=== PATIENT | male | born 1950 | race Caucasian/White ===

== ENCOUNTER 2016-09-17 11:55 | Inpatient (IN) | payer OTHER ==
[~2016-09-17] VITALS: Ht 182.9 cm; Wt 74.4 kg
[~2016-09-17 11:55] MED LIST: MULT-506 PO
[2016-09-17] MEDS ORDERED: SODIUM CHLORIDE 0.9% 1000ML 1,000 ML IV ONE ×2 (11:58→14:45)
[2016-09-17] MEDS ORDERED: FAMOTIDINE 20MG/102 ML D5W IV STA (12:08)
[2016-09-17] MEDS ORDERED: PANTOprazole INJ 40 MG in SYRINGE 0 ML IV ONE (12:15)
--- NOTE | 2016-09-17 12:21 | EMERGENCY ROOM VISIT NOTE ---
History Report prepared by Nazaninibpooja: Rodrick Soler Under the Supervision of: Dr. Leroy Hill D.O. First contact with patient: 11:58 Stated Complaint: AMS History of Present Illness The patient is a 66 year old male who presents to the Emergency Room with complaints of acute altered mental status. As per EMS, the patient was found by an unknown bystander lying on a mattress on the floor. The patient was covered in feces. The patient's BSG was 155. His pressure was in the 80-90s systolically initially, and he was given 600 CCs of fluid en route. The patient' s oxygen saturation was in the 70s. EMS notes that the patient was in the hospital last week. A complete history is limited secondary to altered mental status. Source of History: EMS Position: other (mentation) Quality: other (AMS) Timing: other (acute) Review of Systems ROS is limited secondary to altered mental status. Past Medical & Surgical Medical Problems: (1) Colon cancer (2) Sepsis Family History Patient reports no known family medical history. Social History Smoking Status: Never Smoker Marital Status: Occupation Status: unemployed Current/Historical Medications Unable to Obtain Active Prescriptions or Reported Meds Allergies Coded Allergies: Atorvastatin (Unverified Allergy, Unknown, gets dizzy sees spots, 01/18/14) Physical Exam Vital Signs Date Time Temp Pulse Resp B/P Pulse Ox O2 Delivery O2 Flow Rate FiO2 09/17/16 14:43 114/81 09/17/16 14:30 72 17 106/82 100 Nasal Cannula 6.0 09/17/16 14:28 106/82 09/17/16 14:25 77 100 09/17/16 14:15 36.4 76 126/89 09/17/16 14:13 126/89 09/17/16 13:58 126/87 09/17/16 13:55 78 100 09/17/16 13:48 75 20 117/81 100 Non-Rebreather 09/17/16 13:43 117/81 09/17/16 13:28 121/81 09/17/16 13:25 79 81 09/17/16 13:17 110/82 09/17/16 13:04 88 118/89 Non-Rebreather 10.0 09/17/16 13:02 118/89 09/17/16 12:55 82 09/17/16 12:34 35.8 24 129/75 Non-Rebreather 09/17/16 12:30 99 Non-Rebreather 15.0 09/17/16 12:25 153 Physical Exam GENERAL: Patient is listless, responds to verbal stimuli with groaning, covered in dried black stool, smells feculent in nature. EYES: The conjunctivae are clear. The pupils are round and reactive. EARS, NOSE, MOUTH AND THROAT: The nose is without any evidence of any deformity. Mucous membranes are dry tongue is midline NECK: The neck is nontender and supple. RESPIRATORY: Shallow respirations were noted, scattered rhonchi in all lung pizarro, no retractions were noted. CARDIOVASCULAR: Heart tones barely audible, no definite murmurs noted to auscultation. GASTROINTESTINAL: Abdomen was rigid and diffusely tender, no abdominal distention noted, rectal exam revealed black stool that was strongly heme positive. MUSCULOSKELETAL/EXTREMITIES: There is diffuse ecchymosis noted to all four extremities, erythema and drainage noted from the lateral aspect of the right elbow. SKIN: Skin is cool to touch and dry, no edema appreciated. There are no petechiae, pallor or cyanosis noted. NEUROLOGIC: Patient responds with groans, does not answer questions appropriately, follows commands intermittently with moving all extremities. Medical Decision & Procedures ER Provider Diagnostic Interpretation: Radiology results as stated below per my review and radiologist interpretation: CHEST ONE VIEW PORTABLE CLINICAL HISTORY: Sepsis. COMPARISON STUDY: Chest radiograph November 07, 2010. FINDINGS: Lung volumes are normal. No consolidation is identified. There is no evidence of pulmonary edema. Cardiac size is normal. Mediastinal contours are normal. IMPRESSION: No acute cardiopulmonary findings. Electronically signed by: Kendall Ruiz M.D. 09/17/2016 12:32 PM Dictated Date/Time: 09/17/2016 12:[address]AST CT DOSE: 1259.99 mGy.cm HISTORY: Trauma fall TECHNIQUE: Multiaxial CT images of the head were performed without the use of intravenous contrast. Comparison: 11/08/2010 Findings: The paranasal sinuses and mastoid air cells are clear. The calvarium and skull base are intact. The ventricles and sulci are within normal limits. There is no mass, hematoma, midline shift, or acute infarct. Impression: No acute intracranial abnormality. Age-related change Electronically signed by: Noel Abrams M.D. 09/17/2016 12:58 PM Dictated Date/Time: 09/17/2016 12:54 PM RIGHT ELBOW MIN 3 VIEWS ROUTINE CLINICAL HISTORY: Drainage of right elbow. COMPARISON: None FINDINGS: Alignment of the right elbow is anatomic. No fracture or joint effusion is identified. There is mild soft tissue swelling overlying the olecranon with minimal spurring of the olecranon. There is no evidence of osteomyelitis within visualized skeletal structures. IMPRESSION: 1. No acute fracture or joint effusion of the right elbow. 2. No radiographic evidence of osteomyelitis. 3. Mild soft tissue swelling overlying the olecranon. Electronically signed by: Kendall Ruiz M.D. 09/17/2016 12:30 PM Dictated Date/Time: 09/17/2016 12:[address] OF THE CERVICAL SPINE CLINICAL HISTORY: Neck pain status post trauma COMPARISON STUDY: No previous studies for comparison. CT DOSE: TECHNIQUE: CT scan of the cervical spine was performed from the skull base to the thoracic inlet. Images are reviewed in the axial, sagittal, and coronal planes. IV contrast was not administered for this examination. FINDINGS: The visualized portions of the lung apices reveal no evidence of pneumothorax. The prevertebral soft tissues are normal. There is a tiny avulsion fracture arising from the anterior inferior C4 endplate.. There are mild multilevel degenerative changes IMPRESSION: 1. 3 mm chip/avulsion fracture arising from the anterior inferior C4 endplate. 2. No additional fractures identified. No evidence of traumatic subluxation. Electronically signed by: Erasmo Urbina M.D. 09/17/2016 1:02 PM Dictated Date/Time: 09/17/2016 12:[address] OF THE ABDOMEN AND PELVIS WITHOUT CONTRAST CLINICAL HISTORY: Fall. GI bleed. COMPARISON STUDY: Right upper quadrant ultrasound November 06, 2010. TECHNIQUE: Axial images of the abdomen and pelvis were obtained without IV contrast. Images were reviewed in the axial, sagittal, and coronal planes. FINDINGS: Visualized portions of the lower chest demonstrate dilatation of the ascending aorta which measures 4.2 cm. This is partially imaged on this examination. There acute appearing mildly displaced fractures of the anterior left eighth, ninth and 10th ribs as well as a nondisplaced fracture of the posterior left 11th rib. No pneumothorax is shown within visual portions of the chest. No pneumatosis, free air or portal venous gas is present. There is minimal infiltration along the superior aspect of the pancreatic body. There is no biliary or pancreatic ductal dilatation. Evaluation of the abdomen and pelvis is suboptimal on this unenhanced exam. There is central hypodensity within the liver. This is suboptimally assessed on this unenhanced exam but measures less than water attenuation in several locations and this likely reflects focal fat. There is fatty infiltration within the left hepatic lobe. There is no perihepatic fluid. There is no perisplenic fluid. No hemoperitoneum or pneumoperitoneum is present. Unenhanced images of the kidneys and adrenal glands are unremarkable. Moderate diffuse colonic wall thickening is noted. There is evidence for sigmoid resection. No lymphadenopathy is present. No suspicious skeletal lesions are identified. A Jaimes catheter is present within the bladder. There is no hydronephrosis. IMPRESSION: 1. Acute appearing fractures of the left eighth through 11th ribs. No pneumothorax within visualized portions of the chest. 2. Central branching hypodensity within the right hepatic lobe. This is suboptimally assessed on this unenhanced exam but favors fatty infiltration. A liver laceration could appear similar although is considered less likely. Close clinical monitoring is recommended. No perihepatic fluid. Discussed with Dr. Hill at time of dictation. 3. Moderate diffuse colonic wall thickening. This represents a nonspecific colitis. 4. Mild peripancreatic infiltration. Acute pancreatitis is considered somewhat unlikely but this could be correlated with biochemical assays. 5. Mild dilatation of visualized portions of the ascending aorta. 6. Suboptimal evaluation of the abdomen and pelvis given the lack of IV and oral contrast. Electronically signed by: Kendall Ruiz M.D. 09/17/2016 1:13 PM Dictated Date/Time: 09/17/2016 12:56 PM Laboratory Results Test 09/17/16 12:25 09/17/16 12:26 09/17/16 12:30 09/17/16 13:27 Nucleated RBC Absolute Count (auto) 0.03 K/uL (0-0) Nucleated Red Blood Cells % 0.2 % Erythrocyte Sedimentation Rate 64 mm/hr (0-14) Prothrombin Time 11.7 SECONDS (9.0-12.0) Prothromb Time International Ratio 1.1 (0.9-1.1) Activated Partial Thromboplast Time 25.0 SECONDS (21.0-31.0) Partial Thromboplastin Ratio 1.0 Venous Blood pH 7.38 (7.36-7.41) Venous Blood Partial Pressure CO2 30 mmHg (38.0-50.0) Venous Blood Partial Pressure O2 34 mmHg Venous Blood HCO3 17 mmol/L Venous Blood Oxygen Saturation < 60.0 % Venous Blood Base Excess -6.7 mmol/L C-Reactive Protein 25.20 mg/dl (0-0.29) Pro-B-Type Natriuretic Peptide 3301 pg/ml (0-900) Lipase 241 U/L (73-393) Procalcitonin 11.23 ng/mL (0-0.5) Bedside Lactic Acid Venous 4.38 mmol/L (0.90-1.70) Bedside Hemoglobin 12.6 g/dl (14.0-18.0) Bedside Hematocrit 37 % (42-52) Bedside Sodium 134 mEq/L (135-144) Bedside Potassium 3.8 mEq/L (3.3-5.0) Bedside Chloride 96 mEq/L (101-112) Bedside Total CO2 17 mEq/l (24-31) Bedside Blood Urea Nitrogen > 140 mg/dl (7-18) Bedside Creatinine 7.0 mg/dl (0.6-1.3) Bedside Glucose (other) 155 mg/dl (70-99) Bedside Ionized Calcium (Liliam) 0.93 mmol/l (1.12-1.32) Urine Color DK YELLOW Urine Appearance CLOUDY (CLEAR) Urine pH 5.0 (4.5-7.5) Urine Specific [place] 1.015 (1.000-1.030) Urine Protein TRACE (NEG) Urine Glucose (UA) NEG (NEG) Urine Ketones NEG (NEG) Urine Occult Blood TRACE (NEG) Urine Nitrite POS (NEG) Urine Bilirubin NEG (NEG) Urine Urobilinogen NEG (NEG) Urine Leukocyte Esterase TRACE (NEG) Urine WBC (Auto) 1-5 /hpf (0-5) Urine RBC (Auto) 10-30 /hpf (0-4) Urine Hyaline Casts (Auto) >30 /lpf (0-5) Urine Epithelial Cells (Auto) >30 /lpf (0-5) Urine Bacteria (Auto) NEG (NEG) Urine Renal Epithelial Cells /lpf (0-5) Urine Pathogenic Casts /lpf (0) Urine Mucus PRESENT (NONE PRSENT) Laboratory results per my review. Medications Administered Medications (Trade) Dose Ordered Sig/Miranda Route Start Time Stop Time Status Last Admin Dose Admin Sodium Chloride 1,000 ml @ 999 mls/hr Q1H1M ONCE IV 09/17/16 11:58 09/17/16 12:58 DC 09/17/16 13:02 999 MLS/HR Pantoprazole Sodium/Syringe (Protonix Inj/ Syringe) 10 ml @ 5 mls/min NOW ONCE IV 09/17/16 12:15 09/17/16 12:16 DC 09/17/16 13:13 5 MLS/MIN Famotidine 20 mg 20 mg ONE STAT IV 09/17/16 12:08 09/17/16 12:10 DC 09/17/16 13:03 20 MG Sodium Chloride (Nss 1000ml) 1,000 ml @ 999 mls/hr Q1H1M STAT IV 09/17/16 12:35 09/17/16 13:35 DC 09/17/16 14:00 999 MLS/HR Piperacillin Sod/ Tazobactam Sod (Zosyn Iv) 4.5 gm NOW STAT IV 09/17/16 12:35 09/17/16 12:37 DC 09/17/16 13:04 4.5 GM Levofloxacin 750 mg 750 mg NOW STAT IV 09/17/16 12:35 09/17/16 12:37 DC 09/17/16 13:03 750 MG Sodium Chloride 1,000 ml @ 200 mls/hr Q5H IV 09/17/16 14:45 10/17/16 14:44 09/18/16 05:34 200 MLS/HR Sodium Chloride (Nss 1000ml) 1,000 ml @ 999 mls/hr Q1H1M ONCE IV 09/17/16 14:45 09/17/16 15:45 DC 09/17/16 15:23 999 MLS/HR Procedure Central Venous Catheter Indication: sepsis. Catheter type: triple lumen. Location: femoral, right side. Verbal consent was obtained after the risks and benefits were explained, including but not limited to pneumothorax, hemothorax, vessel injury, bleeding, scarring, infection, pain, and bone/joint/nerve damage. At this time, the risks of the procedure are less than the risks of NOT performing the procedure. A time out was taken and the correct patient and site identified. The patient was placed in the supine position and the skin was prepped in the standard fashion with chlorhexidine and full sterile drapes applied. The proper landmarks were identified with ultrasound, anesthetized with 1% lidocaine without epinephrine, and the needle was inserted through the skin in the standard fashion. The needle was carefully advanced into blood vessel lumen with use of landmarks. The guidewire was placed uneventfully. The vessel is dilated and the catheter was placed. It was sutured into position. There was good blood return from all ports. The patient tolerated the procedure well and there were no complications. Post procedure x-ray was normal. ED Course 1158: NSS 1000 ml @ 999 mls/hr. 1200: The patient was evaluated in room A1. A complete history and physical examination were performed. 1208: Famotidine 20 mg IV. 1215: Protonix 40 mg / syringe 10 ml @ 5 mls/hr. 1235: Levaquin / D5w 750 mg IV, Zosyn 4.5 gm IV, NSS 1000 ml @ 999 mls/hr. 1315: Central line placed. Please see procedural note above. 1327: [facility] The patient will be evaluated. 1350: The patient is now answering some questions. Medical Decision Prior records/ancillary studies reviewed and summarized above. Nursing notes reviewed. Additional history obtained from EMS. Differential diagnosis: Etiologies such as metabolic, infection, hypo/hyperglycemia, electrolyte abnormalities, cardiac sources, intracerebral event, toxicologic, neurologic, as well as others were entertained. The patient is a 66-year-old male who presented to the emergency department by ambulance for evaluation of altered mental status. History was very limited on this patient. Additional history was obtained from the prehospital personnel. The patient was found in a living facility and I'm unsure if this is his primary residence but he was on the floor. It was unclear if the patient fell. Initially the patient could not give much history and when he started to give history he was somewhat confused. The patient was found covered in stool. He was hypothermic. The stool was heme positive. He had diffuse tenderness over his abdomen but this was difficult to assess. The patient was treated with IV fluids and IV antibiotics in the emergency department. He was felt to be suffering from GI bleeding as well as sepsis. CAT scan did reveal signs of enterocolitis and I'm unsure if this is the source of the patient's infection at this time. The patient was reevaluated multiple times. His central line was placed in his right groin. I discussed the patient's laboratory and radiographic studies with the on-call [facility] hospitalist group. They've agreed to evaluate the patient in the emergency department for further management and disposition. The patient's condition continued to improve while he was in the emergency department. He was found have a draining area over his right elbow. This could be from the fall with a subsequent infection or could represent a pressure necrosis area. This area was cultured. This area was dressed using a wound dressing. Consults Time Called: 1320 Consulting Physician: Dr. Otto [facility] Hospitalist. Returned Call: 1327 1327: [facility] The patient will be evaluated. Impression Primary Impression: Altered mental status Additional Impressions: C4 cervical fracture Multiple fractures of ribs, left side, initial encounter for closed fracture Cellulitis of right elbow GI bleeding Hypothermia ARF (acute renal failure) Elevated troponin Sepsis Critical Care I have personally spent greater than 60 minutes of critical care time in the direct management of this patient. This includes bedside care, interpretation of diagnostic studies, and testing, discussion with consultants, patient, and family members, and other required patient management activities. This 60 minutes is in excess of all separately billable procedures. Scribe Attestation The scribe's documentation has been prepared under my direction and personally reviewed by me in its entirety. I confirm that the note above accurately reflects all work, treatment, procedures, and medical decision making performed by me. Departure Information Dispostion Being Evaluated By Hospitalist Prescriptions Unable to Obtain Active Prescriptions or Reported Meds Referrals Kelsea Duke C.R.NVandanaPVandana (PCP) Problem Qualifiers Primary Impression: Altered mental status Altered mental status type: somnolence Qualified Codes: R40.0 - Somnolence Additional Impressions: C4 cervical fracture Encounter type: initial encounter Fracture type: closed Fracture morphology : unspecified fracture morphology Fracture alignment: nondisplaced Qualified Codes: S12.301A - Unspecified nondisplaced fracture of fourth cervical vertebra, initial encounter for closed fracture GI bleeding GI bleed type/associated pathology: melena Qualified Codes: K92.1 - Melena Hypothermia Encounter type: initial encounter Qualified Codes: T68.XXXA - Hypothermia, initial encounter ARF (acute renal failure) Acute renal failure type: unspecified Qualified Codes: N17.9 - Acute kidney failure, unspecified Sepsis Sepsis type: sepsis due to unspecified organism Qualified Codes: A41.9 - Sepsis, unspecified organism
--- NOTE | 2016-09-17 12:32 | DIAGNOSTIC IMAGING REPORT ---
RIGHT ELBOW MIN 3 VIEWS ROUTINE CLINICAL HISTORY: Drainage of right elbow. COMPARISON: None FINDINGS: Alignment of the right elbow is anatomic. No fracture or joint effusion is identified. There is mild soft tissue swelling overlying the olecranon with minimal spurring of the olecranon. There is no evidence of osteomyelitis within visualized skeletal structures. IMPRESSION: 1. No acute fracture or joint effusion of the right elbow. 2. No radiographic evidence of osteomyelitis. 3. Mild soft tissue swelling overlying the olecranon. Electronically signed by: Kendall Ruiz M.D. 09/17/2016 12:30 PM Dictated Date/Time: 09/17/2016 12:30 PM
--- NOTE | 2016-09-17 12:33 | DIAGNOSTIC IMAGING REPORT ---
CHEST ONE VIEW PORTABLE CLINICAL HISTORY: Sepsis. COMPARISON STUDY: Chest radiograph November 07, 2010. FINDINGS: Lung volumes are normal. No consolidation is identified. There is no evidence of pulmonary edema. Cardiac size is normal. Mediastinal contours are normal. IMPRESSION: No acute cardiopulmonary findings. Electronically signed by: Kendall Ruiz M.D. 09/17/2016 12:32 PM Dictated Date/Time: 09/17/2016 12:31 PM
[2016-09-17] MEDS ORDERED: LEVAQUIN 750MG / 150ML D5W IV STA (12:35)
[2016-09-17] MEDS ORDERED: PIPERACILLIN/TAZOBACTAM 4.5 GM/100ML D5W IV STA (12:35)
[2016-09-17] MEDS ORDERED: SODIUM CHLORIDE 0.9% 1000ML 1,000 ML IV STA (12:35)
[2016-09-17 12:45] LABS: VEN BLD GAS O2 SATURATION < 60.0 %; VEN BLOOD GAS BASE EXCESS -6.7 mmol/L; VENOUS BLOOD GAS PCO2 30 mmHg (38.0-50.0); VENOUS BLOOD GAS PO2 34 mmHg
[2016-09-17 12:46] LABS: ISTAT CARBON DIOXIDE 17 mEq/l (24-31); ISTAT CHLORIDE 96 mEq/L (101-112); ISTAT HEMATOCRIT 37 % (42-52); ISTAT HEMOGLOBIN 12.6 g/dl (14.0-18.0); ISTAT IONIZED CALCIUM 0.93 mmol/l (1.12-1.32); ISTAT SODIUM 134 mEq/L (135-144)
[2016-09-17 12:50] LABS: MEAN PLATELET VOLUME 11.2 fL (7.4-10.4); PLATELET COUNT 287 K/uL (130-400)
--- NOTE | 2016-09-17 13:00 | DIAGNOSTIC IMAGING REPORT ---
HEAD CT NONCONTRAST CT DOSE: 1259.99 mGy.cm HISTORY: Trauma fall TECHNIQUE: Multiaxial CT images of the head were performed without the use of intravenous contrast. Comparison: 11/08/2010 Findings: The paranasal sinuses and mastoid air cells are clear. The calvarium and skull base are intact. The ventricles and sulci are within normal limits. There is no mass, hematoma, midline shift, or acute infarct. Impression: No acute intracranial abnormality. Age-related change Electronically signed by: Noel Abrams M.D. 09/17/2016 12:58 PM Dictated Date/Time: 09/17/2016 12:54 PM
[2016-09-17 13:02] LABS: INR 1.1 (0.9-1.1); PROTHROMBIN TIME (PATIENT) 11.7 SECONDS (9.0-12.0)
--- NOTE | 2016-09-17 13:03 | DIAGNOSTIC IMAGING REPORT ---
CT OF THE CERVICAL SPINE CLINICAL HISTORY: Neck pain status post trauma COMPARISON STUDY: No previous studies for comparison. CT DOSE: TECHNIQUE: CT scan of the cervical spine was performed from the skull base to the thoracic inlet. Images are reviewed in the axial, sagittal, and coronal planes. IV contrast was not administered for this examination. FINDINGS: The visualized portions of the lung apices reveal no evidence of pneumothorax. The prevertebral soft tissues are normal. There is a tiny avulsion fracture arising from the anterior inferior C4 endplate.. There are mild multilevel degenerative changes IMPRESSION: 1. 3 mm chip/avulsion fracture arising from the anterior inferior C4 endplate. 2. No additional fractures identified. No evidence of traumatic subluxation. Electronically signed by: Erasmo Urbina M.D. 09/17/2016 1:02 PM Dictated Date/Time: 09/17/2016 12:54 PM
--- NOTE | 2016-09-17 13:15 | DIAGNOSTIC IMAGING REPORT ---
CT OF THE ABDOMEN AND PELVIS WITHOUT CONTRAST CLINICAL HISTORY: Fall. GI bleed. COMPARISON STUDY: Right upper quadrant ultrasound November 06, 2010. TECHNIQUE: Axial images of the abdomen and pelvis were obtained without IV contrast. Images were reviewed in the axial, sagittal, and coronal planes. FINDINGS: Visualized portions of the lower chest demonstrate dilatation of the ascending aorta which measures 4.2 cm. This is partially imaged on this examination. There acute appearing mildly displaced fractures of the anterior left eighth, ninth and 10th ribs as well as a nondisplaced fracture of the posterior left 11th rib. No pneumothorax is shown within visual portions of the chest. No pneumatosis, free air or portal venous gas is present. There is minimal infiltration along the superior aspect of the pancreatic body. There is no biliary or pancreatic ductal dilatation. Evaluation of the abdomen and pelvis is suboptimal on this unenhanced exam. There is central hypodensity within the liver. This is suboptimally assessed on this unenhanced exam but measures less than water attenuation in several locations and this likely reflects focal fat. There is fatty infiltration within the left hepatic lobe. There is no perihepatic fluid. There is no perisplenic fluid. No hemoperitoneum or pneumoperitoneum is present. Unenhanced images of the kidneys and adrenal glands are unremarkable. Moderate diffuse colonic wall thickening is noted. There is evidence for sigmoid resection. No lymphadenopathy is present. No suspicious skeletal lesions are identified. A Jaimes catheter is present within the bladder. There is no hydronephrosis. IMPRESSION: 1. Acute appearing fractures of the left eighth through 11th ribs. No pneumothorax within visualized portions of the chest. 2. Central branching hypodensity within the right hepatic lobe. This is suboptimally assessed on this unenhanced exam but favors fatty infiltration. A liver laceration could appear similar although is considered less likely. Close clinical monitoring is recommended. No perihepatic fluid. Discussed with Dr. Hill at time of dictation. 3. Moderate diffuse colonic wall thickening. This represents a nonspecific colitis. 4. Mild peripancreatic infiltration. Acute pancreatitis is considered somewhat unlikely but this could be correlated with biochemical assays. 5. Mild dilatation of visualized portions of the ascending aorta. 6. Suboptimal evaluation of the abdomen and pelvis given the lack of IV and oral contrast. Electronically signed by: Kendall Ruiz M.D. 09/17/2016 1:13 PM Dictated Date/Time: 09/17/2016 12:56 PM
[2016-09-17 13:26] LABS: ALB/GLOB RATIO 0.4 (0.9-2); BUN/CREATININE RATIO 27.3 (10-20); C-REACTIVE PROTEIN 25.2 mg/dl (0-0.29); CALCIUM 8.6 mg/dl (8.5-10.1); CKMB/CK RATIO 6.3 (0-3.0); CREATININE 7.4 mg/dl (0.60-1.40); MAGNESIUM 2.5 mg/dl (1.8-2.4); PHOSPHORUS 7.6 mg/dl (2.5-4.9); POTASSIUM 3.8 mmol/L (3.5-5.1)
[2016-09-17 13:28] LABS: COMPLETE YES; DOHLE BODIES 3+; HEMATOCRIT 33.6 % (42-52); LYMPH ABS # 0.29 K/uL (1.2-3.4); LYMPHOCYTE % 1.7 %; MEAN CELL VOLUME 91.1 fL (80-100); MEAN CORPUSCULAR HEMOGLOBIN 32.8 pg (25-34); NEUTROPHILS % 88.7 %; RED BLOOD COUNT 3.69 M/uL (4.7-6.1); TOXIC GRANULATION 2+; WHITE BLOOD COUNT 16.96 K/uL (4.8-10.8)
--- NOTE | 2016-09-17 14:36 | History and Physical ---
History & Physical Date & Time of Service: Sep 17, 2016 at 14:06 Chief Complaint: AMS Primary Care Physician: Kelsea Duke C.R.N.P. History of Present Illness Source: patient, hospital records, other (ED physician) This patient is a 66-year-old male that was brought to the emergency Department via ALS and was reportedly found down for an unknown amount of time in his apartment covered in black stool. The history is limited as the patient is still somewhat altered. Upon arrival in the emergency department, the patient was hypothermic with a temperature of 35.8. He was also reportedly completely unresponsive upon arrival. The patient is now able to at least only that he has been very weak over the last several days. He has had copious watery diarrhea over the last several weeks. The patient denies any abdominal pain. He also denies any nausea. No recent cough area he does constantly feels somewhat short of breath. This is not new. He denies any chest pain. He does report "falling all the time." He does not remember anything about today except waking up in the emergency department. Pertinent labs are notable for a creatinine of 7.4. Potassium is stable at 3.8. BUN is 202. Mild elevation in troponin at 0.587. Checks x-ray did not show any acute findings, however a CT of the abdomen and pelvis is performed. This revealed 3 left rib fractures that appear acute. No signs of pneumothorax. Nonspecific colitis was also noted on the noncontrast CT. There was a questionable small liver laceration that is thought to be more consistent with infiltrative fatty changes. Again, the patient denies any abdominal pain. Past Medical/Surgical History Medical Problems: (1) Colon cancer Status: Chronic Family History Patient reports no known family medical history. No known illnesses of mother and father Social History Smoking Status: Never Smoker Alcohol Use: patient denies, however reportedly the patient does have a history of alcoholism Marital Status: Housing status: lives alone Occupational Status: unemployed Immunizations History of Influenza Vaccine: No History of Tetanus Vaccine?: No Tetanus Immunization Date: Nov 06, 2010 History of Pneumococcal: No History of Hepatitis B Vaccine: No Allergies Coded Allergies: Atorvastatin (Unverified Allergy, Unknown, gets dizzy sees spots, 01/18/14) Home Medications Unable to Obtain Active Prescriptions or Reported Meds Review of Systems 10 system review performed and negative unless noted in HPI or below Physical Exam Vital Signs Date Time Temp Pulse Resp B/P Pulse Ox O2 Delivery O2 Flow Rate FiO2 09/17/16 13:48 75 20 117/81 100 Non-Rebreather 09/17/16 13:04 88 118/89 Non-Rebreather 10.0 09/17/16 12:34 35.8 24 129/75 Non-Rebreather 09/17/16 12:30 99 Non-Rebreather 15.0 GENERAL: 66-year-old male. Appears older than stated age. In mild distress. SKIN: Bruises noted on the left hip and lower extremities bilaterally HEAD: Normocephalic atraumatic. EYES: Pupils equal round and reactive to light and accommodation. Conjunctivae without injection, sclerae without icterus. Extraocular movements intact. MOUTH: Mucous membranes dry. NECK: . No JVD. HEART: Regular rate and rhythm without murmurs gallops or rubs. LUNGS: Clear to auscultation bilaterally without wheezes, rales or rhonchi. No accessory muscle use. THORAX: No point tenderness noted. ABDOMEN: Bowel sounds hypoactive. No point tenderness noted. No organomegaly appreciated. MUSCULOSKELETAL: Muscle wasting noted. No edema noted in the lower extremities bilaterally. Strength is weak throughout, however equal bilaterally. NEURO: Patient was alert and oriented to person place and time. No focal motor deficits noted. Diagnostics Laboratory Results 09/17/16 12:25 Red Blood Count 3.69, Mean Corpuscular Volume 91.1, Mean Corpuscular Hemoglobin 32.8, Mean Corpuscular Hemoglobin Concent 36.0, Mean Platelet Volume 11.2 Test 09/17/16 12:25 09/17/16 12:26 09/17/16 12:30 09/17/16 13:27 White Blood Count 16.96 K/uL (4.8-10.8) Red Blood Count 3.69 M/uL (4.7-6.1) Hemoglobin 12.1 g/dL (14.0-18.0) Hematocrit 33.6 % (42-52) Mean Corpuscular Volume 91.1 fL (80-100) Mean Corpuscular Hemoglobin 32.8 pg (25-34) Mean Corpuscular Hemoglobin Concent 36.0 g/dl (32-36) Platelet Count 287 K/uL (130-400) Mean Platelet Volume 11.2 fL (7.4-10.4) RDW Standard Deviation 46.5 fL (36.4-46.3) RDW Coefficient of Variation 14.1 % (11.5-14.5) Nucleated RBC Absolute Count (auto) 0.03 K/uL (0-0) Neutrophils % (Manual) 88.7 % Lymphocytes % (Manual) 1.7 % Monocytes % (Manual) 9.6 % Nucleated Red Blood Cells % 0.2 % Neutrophils # (Manual) 15.04 K/uL (1.4-6.5) Total Absolute Neutrophils 15.04 K/uL (1.4-6.5) Lymphocytes # (Manual) 0.29 K/uL (1.2-3.4) Total Absolute Lymphocytes 0.29 K/uL (1.2-3.4) Monocytes # (Manual) 1.63 K/uL (0.11-0.59) Toxic Granulation 2+ Dohle Bodies 3+ Erythrocyte Sedimentation Rate 64 mm/hr (0-14) Prothrombin Time 11.7 SECONDS (9.0-12.0) Prothromb Time International Ratio 1.1 (0.9-1.1) Activated Partial Thromboplast Time 25.0 SECONDS (21.0-31.0) Partial Thromboplastin Ratio 1.0 Venous Blood pH 7.38 (7.36-7.41) Venous Blood Partial Pressure CO2 30 mmHg (38.0-50.0) Venous Blood Partial Pressure O2 34 mmHg Venous Blood HCO3 17 mmol/L Venous Blood Oxygen Saturation < 60.0 % Venous Blood Base Excess -6.7 mmol/L Est Creatinine Clear Calc Drug Dose 9.8 ml/min Estimated GFR () 8.1 Estimated GFR (Non- 7.0 BUN/Creatinine Ratio 27.3 (10-20) Calcium Level 8.6 mg/dl (8.5-10.1) Phosphorus Level 7.6 mg/dl (2.5-4.9) Magnesium Level 2.5 mg/dl (1.8-2.4) Total Bilirubin 0.8 mg/dl (0.2-1) Aspartate Amino Transf (AST/SGOT) 34 U/L (15-37) Alanine Aminotransferase (ALT/SGPT) 19 U/L (12-78) Alkaline Phosphatase 95 U/L (45-117) Total Creatine Kinase 107 U/L (39-308) Creatine Kinase MB 6.7 ng/ml (0.5-3.6) Creatine Kinase MB Ratio 6.3 (0-3.0) Troponin I 0.587 ng/ml (0-0.045) C-Reactive Protein 25.20 mg/dl (0-0.29) Pro-B-Type Natriuretic Peptide 3301 pg/ml (0-900) Total Protein 6.6 gm/dl (6.4-8.2) Albumin 2.0 gm/dl (3.4-5.0) Globulin 4.6 gm/dl (2.5-4.0) Albumin/Globulin Ratio 0.4 (0.9-2) Lipase 241 U/L (73-393) Procalcitonin 11.23 ng/mL (0-0.5) Bedside Lactic Acid Venous 4.38 mmol/L (0.90-1.70) Bedside Hemoglobin 12.6 g/dl (14.0-18.0) Bedside Hematocrit 37 % (42-52) Bedside Sodium 134 mEq/L (135-144) Bedside Potassium 3.8 mEq/L (3.3-5.0) Bedside Chloride 96 mEq/L (101-112) Bedside Total CO2 17 mEq/l (24-31) Anion Gap 25.0 mmol/L (16-25) Bedside Blood Urea Nitrogen > 140 mg/dl (7-18) Bedside Creatinine 7.0 mg/dl (0.6-1.3) Bedside Glucose (other) 155 mg/dl (70-99) Bedside Ionized Calcium (Liliam) 0.93 mmol/l (1.12-1.32) Results Past 24 Hours Test 09/17/16 12:25 09/17/16 12:26 09/17/16 12:30 09/17/16 13:27 Range/Units White Blood Count 16.96 4.8-10.8 K/uL Red Blood Count 3.69 4.7-6.1 M/uL Hemoglobin 12.1 14.0-18.0 g/dL Hematocrit 33.6 42-52 % Mean Corpuscular Volume 91.1 80-100 fL Mean Corpuscular Hemoglobin 32.8 25-34 pg Mean Corpuscular Hemoglobin Concent 36.0 32-36 g/dl Platelet Count 287 130-400 K/uL Mean Platelet Volume 11.2 7.4-10.4 fL RDW Standard Deviation 46.5 36.4-46.3 fL RDW Coefficient of Variation 14.1 11.5-14.5 % Nucleated RBC Absolute Count (auto) 0.03 0-0 K/uL Neutrophils % (Manual) 88.7 % Lymphocytes % (Manual) 1.7 % Monocytes % (Manual) 9.6 % Nucleated Red Blood Cells % 0.2 % Neutrophils # (Manual) 15.04 1.4-6.5 K/uL Total Absolute Neutrophils 15.04 1.4-6.5 K/uL Lymphocytes # (Manual) 0.29 1.2-3.4 K/uL Total Absolute Lymphocytes 0.29 1.2-3.4 K/uL Monocytes # (Manual) 1.63 0.11-0.59 K/uL Toxic Granulation 2+ Dohle Bodies 3+ Erythrocyte Sedimentation Rate 64 0-14 mm/hr Prothrombin Time 11.7 9.0-12.0 SECONDS Prothromb Time International Ratio 1.1 0.9-1.1 Activated Partial Thromboplast Time 25.0 21.0-31.0 SECONDS Partial Thromboplastin Ratio 1.0 Venous Blood pH 7.38 7.36-7.41 Venous Blood Partial Pressure CO2 30 38.0-50.0 mmHg Venous Blood Partial Pressure O2 34 mmHg Venous Blood HCO3 17 mmol/L Venous Blood Oxygen Saturation < 60.0 % Venous Blood Base Excess -6.7 mmol/L Sodium Level 137 136-145 mmol/L Potassium Level 3.8 3.5-5.1 mmol/L Chloride Level 96 98-107 mmol/L Carbon Dioxide Level 16 21-32 mmol/L Anion Gap 25.0 25.0 16-25 mmol/L Blood Urea Nitrogen 202 7-18 mg/dl Creatinine 7.40 0.60-1.40 mg/dl Est Creatinine Clear Calc Drug Dose 9.8 ml/min Estimated GFR () 8.1 Estimated GFR (Non- 7.0 BUN/Creatinine Ratio 27.3 10-20 Random Glucose 146 70-99 mg/dl Calcium Level 8.6 8.5-10.1 mg/dl Phosphorus Level 7.6 2.5-4.9 mg/dl Magnesium Level 2.5 1.8-2.4 mg/dl Total Bilirubin 0.8 0.2-1 mg/dl Aspartate Amino Transf (AST/SGOT) 34 15-37 U/L Alanine Aminotransferase (ALT/SGPT) 19 12-78 U/L Alkaline Phosphatase 95 45-117 U/L Total Creatine Kinase 107 39-308 U/L Creatine Kinase MB 6.7 0.5-3.6 ng/ml Creatine Kinase MB Ratio 6.3 0-3.0 Troponin I 0.587 0-0.045 ng/ml C-Reactive Protein 25.20 0-0.29 mg/dl Pro-B-Type Natriuretic Peptide 3301 0-900 pg/ml Total Protein 6.6 6.4-8.2 gm/dl Albumin 2.0 3.4-5.0 gm/dl Globulin 4.6 2.5-4.0 gm/dl Albumin/Globulin Ratio 0.4 0.9-2 Lipase 241 73-393 U/L Bedside Lactic Acid Venous 4.38 0.90-1.70 mmol/L Bedside Hemoglobin 12.6 14.0-18.0 g/dl Bedside Hematocrit 37 42-52 % Bedside Sodium 134 135-144 mEq/L Bedside Potassium 3.8 3.3-5.0 mEq/L Bedside Chloride 96 101-112 mEq/L Bedside Total CO2 17 24-31 mEq/l Bedside Blood Urea Nitrogen > 140 7-18 mg/dl Bedside Creatinine 7.0 0.6-1.3 mg/dl Bedside Glucose (other) 155 70-99 mg/dl Bedside Ionized Calcium (Liliam) 0.93 1.12-1.32 mmol/l Microbiology Results 09/17/16 Blood Culture, Received Pending 09/17/16 Blood Culture, Received Pending 09/17/16 Gram Stain, Received Pending 09/17/16 Wound Culture, Received Pending Diagnostic Radiology Patient: MONALISA REID Address1: [address] [facility] Rec: [id number] Address2: Acct ID: [id number] [facility] Zip: [place] [address] Date: 1950 Sex: M Room/Bed: Ref Phy: Kelsea Duke C.RVandanaNVandanaP. SC: CCHRISTIANNE Att Phy: Report #: [id number] Sharon Phy: Kelsea Duke C.R.NVandanaPVandana Test: CSWO Admit Phy: Program Administrator: FABIENNE Interpreting Phy: Erasmo Urbina M.D. Diagnosis: AMS Ordering Phy: Leroy Hill D.O. Service Date: 09/17/16 Admit Date: 09/17/16 MNE: PWRSCRIBE CONF: DICTATED BY: Erasmo Urbina M.D.]] CC: Leroy Hill, Kelsea Edwards C.R.NChacorta Endcc: [~ rep ct add3]] CT OF THE CERVICAL SPINE CLINICAL HISTORY: Neck pain status post trauma COMPARISON STUDY: No previous studies for comparison. CT DOSE: TECHNIQUE: CT scan of the cervical spine was performed from the skull base to the thoracic inlet. Images are reviewed in the axial, sagittal, and coronal planes. IV contrast was not administered for this examination. FINDINGS: The visualized portions of the lung apices reveal no evidence of pneumothorax. The prevertebral soft tissues are normal. There is a tiny avulsion fracture arising from the anterior inferior C4 endplate.. There are mild multilevel degenerative changes IMPRESSION: 1. 3 mm chip/avulsion fracture arising from the anterior inferior C4 endplate. 2. No additional fractures identified. No evidence of traumatic subluxation. Electronically signed by: Erasmo Urbina M.D. 09/17/2016 1:02 PM Dictated Date/Time: 09/17/2016 12:54 PM The status of this report is Signed. Draft = Not yet reviewed or approved by Radiologist. Signed = Reviewed and approved by Radiologist. <AttendingPhy></AttendingPhy> <FamilyPhy>Kelsea Duke C.R.N.PVandana</FamilyPhy> < PrimaryPhy>Kelsea Duke C.R.N.PVandana</PrimaryPhy> <UnitNumber>[id number]</ UnitNumber> <VisitNumber>[id number]</VisitNum Patient Name: MONALISA REID Unit Number: [id number] Dictated: 09/17/16 1256 Transcribed: 09/17/16 1256 JA Printed Date/Time: [~ rep prt dt]/[~ rep prt tm] [~ rep ct labl] - [~ rep ct ivnm] [facility] [place] [address] Dictated: 09/17/16 1256 Transcribed: 09/17/16 1256 JA Printed Date/Time: [~ rep prt dt]/[~ rep prt tm] [~ rep ct labl] - [~ rep ct ivnm] Patient: MONALISA REID Address1: [address] [facility] Rec: [id number] Address2: Acct ID: [id number] [facility] Zip: [place] [address] Date: 1950 Sex: M Room/Bed: Ref Phy: Kelsea Duke C.R.N.P. SC: CCHRISTIANNE Att Phy: Report #: [id number] Sharon Phy: Kelsea Duke C.R.N.PVandana Test: APWO Admit Phy: Program Administrator: FABIENNE Interpreting Phy: Kendall Ruiz MD Diagnosis: AMS Ordering Phy: Leroy Hill D.O. Service Date: 09/17/16 Admit Date: 09/17/16 MNE: PWRSCRIBE CONF: DICTATED BY: Kendall Ruiz MD]] CC: Leroy Hill, Kelsea Edwards C.R.NVandanaPVandana Endcc: [~ rep ct add3]] CT OF THE ABDOMEN AND PELVIS WITHOUT CONTRAST CLINICAL HISTORY: Fall. GI bleed. COMPARISON STUDY: Right upper quadrant ultrasound November 06, 2010. TECHNIQUE: Axial images of the abdomen and pelvis were obtained without IV contrast. Images were reviewed in the axial, sagittal, and coronal planes. FINDINGS: Visualized portions of the lower chest demonstrate dilatation of the ascending aorta which measures 4.2 cm. This is partially imaged on this examination. There acute appearing mildly displaced fractures of the anterior left eighth, ninth and 10th ribs as well as a nondisplaced fracture of the posterior left 11th rib. No pneumothorax is shown within visual portions of the chest. No pneumatosis, free air or portal venous gas is present. There is minimal infiltration along the superior aspect of the pancreatic body. There is no biliary or pancreatic ductal dilatation. Evaluation of the abdomen and pelvis is suboptimal on this unenhanced exam. There is central hypodensity within the liver. This is suboptimally assessed on this unenhanced exam but measures less than water attenuation in several locations and this likely reflects focal fat. There is fatty infiltration within the left hepatic lobe. There is no perihepatic fluid. There is no perisplenic fluid. No hemoperitoneum or pneumoperitoneum is present. Unenhanced images of the kidneys and adrenal glands are unremarkable. Moderate diffuse colonic wall thickening is noted. There is evidence for sigmoid resection. No lymphadenopathy is present. No suspicious skeletal lesions are identified. A Jaimes catheter is present within the bladder. There is no hydronephrosis. IMPRESSION: 1. Acute appearing fractures of the left eighth through 11th ribs. No pneumothorax within visualized portions of the chest. 2. Central branching hypodensity within the right hepatic lobe. This is suboptimally assessed on this unenhanced exam but favors fatty infiltration. A liver laceration could appear similar although is considered less likely. Close clinical monitoring is recommended. No perihepatic fluid. Discussed with Dr. Hill at time of dictation. 3. Moderate diffuse colonic wall thickening. This represents a nonspecific colitis. 4. Mild peripancreatic infiltration. Acute pancreatitis is considered somewhat unlikely but this could be correlated with biochemical assays. 5. Mild dilatation of visualized portions of the ascending aorta. 6. Suboptimal evaluation of the abdomen and pelvis given the lack of IV and oral contrast. Electronically signed by: Kendall Ruiz M.D. 09/17/2016 1:13 PM Dictated Date/Time: 09/17/2016 12:56 PM The status of this report is Signed. Draft = Not yet reviewed or approved by Radiologist. Signed = Reviewed and approved by Radiologist. <AttendingPhy></AttendingPhy> <FamilyPhy>Kelsea Duke C.RVandanaN.P.</FamilyPhy> < PrimaryPhy>Kelsea Duke C.R.N.P.</PrimaryPhy> <UnitNumber>[id number]</ UnitNumber> <VisitNumber>[id number]</VisitNumber> <PatientName>MONALISA REID</PatientName> <DateOfBirth>1950</DateOfBirth> <Location>C.ED</ Location> <ServiceDate>09/17/16</ServiceDate> <MNE>ESINDI</MNE> <OrderingPhy> Leroy Hill D.O.</OrderingPhy> <OrderingPhyMNE>f rep ord dr thomas</ OrderingPhyMNE> <DictatingPhyMNE>f rep dict dr thomas</DictatingPhyMNE> <CCListMNE> f rep ct mne</CCListMNE> <AdmittingPhyMNE>f pt admit dr thomas</AdmittingPhyMNE> < AttendingPhyMNE>f pt attend dr thomas</AttendingPhyMNE> <ConsultingPhyMNE>f pt consult dr thomas</ConsultingPhyMNE> <FamilyPhyMNE>f pt fam dr thomas</FamilyPhyMNE> <OtherPhyMNE>f pt other dr thomas</OtherPhyMNE> < PrimaryPhyMNE>f pt prim care dr thomas</PrimaryPhyMNE> <ReferringPhyMNE>f pt referring dr thomas</ReferringPhyMNE> Patient: MONALISA REID Address1: [address] [facility] Rec: [id number] [facility] [id number] Zip: [place] [address] Date: 1950 Sex: M Room/Bed: Ref Phy: Kelsea Duke,C.R.N.P. SC: C.ED Att Phy: Report #: [id number] Sharon Phy: Kelsea Duke,C.R.N.P. Test: HWO Admit Phy: Program Administrator: FABIENNE Interpreting Phy: Noel Abrams M.D. Diagnosis: AMS Ordering Phy: Leroy Hill D.O. Service Date: 09/17/16 Admit Date: 09/17/16 MNE: PWRSCRIBE CONF: DICTATED BY: Noel Abrams M.D.]] CC: Leroy Hill, Kelsea Edwards,C.R.N.PVandana Endcc: [~ rep ct add3]] HEAD CT NONCONTRAST CT DOSE: 1259.99 mGy.cm HISTORY: Trauma fall TECHNIQUE: Multiaxial CT images of the head were performed without the use of intravenous contrast. Comparison: 11/08/2010 Findings: The paranasal sinuses and mastoid air cells are clear. The calvarium and skull base are intact. The ventricles and sulci are within normal limits. There is no mass, hematoma, midline shift, or acute infarct. Impression: No acute intracranial abnormality. Age-related change Electronically signed by: Noel Abrams M.D. 09/17/2016 12:58 PM Dictated Date/Time: 09/17/2016 12:54 PM The status of this report is Signed. Draft = Not yet reviewed or approved by Radiologist. Patient Name: MONALISA REID Unit Number: [id number] Dictated: 09/17/161230 Transcribed: 09/17/161230 JA Printed Date/Time: [~ rep prt dt]/[~ rep prt tm] [~ rep ct labl] - [~ rep ct ivnm] [facility] [place] [address] Dictated: 09/17/161230 Transcribed: 09/17/161230 JA Printed Date/Time: [~ rep prt dt]/[~ rep prt tm] [~ rep ct labl] - [~ rep ct ivnm] Patient: MONALISA REID Address1: [address] [facility] Rec: [id number] Address2: Acct ID: [id number] [facility] Zip: [place] [address] Date: 1950 Sex: M Room/Bed: Ref Phy: Kelsea Duke,C.R.N.P. SC: C.ED Att Phy: Report #: [id number] Sharon Phy: Kelsea DukeC.R.N.P. Test: CXR1P Admit Phy: Program Administrator: BELINDA Interpreting Phy: Kendall Ruiz MD Diagnosis: AMS Ordering Phy: Leroy Hill D.O. Service Date: 09/17/16 Admit Date: 09/17/16 MNE: PWRSCRIBE CONF: DICTATED BY: Kendall Ruiz MD]] CC: Leroy Hill, Kelsea Edwards C.R.NElizabeth. Endcc: [~ rep ct add3]] CHEST ONE VIEW PORTABLE CLINICAL HISTORY: Sepsis. COMPARISON STUDY: Chest radiograph November 07, 2010. FINDINGS: Lung volumes are normal. No consolidation is identified. There is no evidence of pulmonary edema. Cardiac size is normal. Mediastinal contours are normal. IMPRESSION: No acute cardiopulmonary findings. Electronically signed by: Kendall Ruiz M.D. 09/17/2016 12:32 PM Dictated Date/Time: 09/17/2016 12:31 PM The status of this report is Signed. Draft = Not yet reviewed or approved by Radiologist. Signed = Reviewed and approved by Radiologist. <AttendingPhy></AttendingPhy> <FamilyPhy>Kelsea Duke C.RVandanaNVandanaPVandana</FamilyPhy> < PrimaryPhy>Kelsea Duke C.R.NVandanaPVandana</PrimaryPhy> <UnitNumber>[id number]</ UnitNumber> <VisitNumber>[id number]</VisitNumber> <PatientName>MONALISA REID</PatientName> <DateOfBirth>1950</DateOfBirth> <Location>C.ED</ Location> <ServiceDate>09/17/16</ServiceDate> <MNE>ESINDI</MNE> <OrderingPhy> Leroy Hill D.O.</OrderingPhy> <OrderingPhyMNE>f rep ord dr thomas</ OrderingPhyMNE> <DictatingPhyMNE>f rep dict dr thomas</DictatingPhyMNE> <CCListMNE> f rep ct mne</CCListMNE> <AdmittingPhyMNE>f pt admit dr thomas</AdmittingPhyMNE> < AttendingPhyMNE>f pt attend dr thomas</AttendingPhyMNE> <ConsultingPhyMNE>f pt consult dr thomas</ConsultingPhyMNE> <FamilyPhyMNE>f pt fam dr thomas</FamilyPhyMNE> <OtherPhyMNE>f pt other dr thomas</OtherPhyMNE> < PrimaryPhyMNE>f pt prim care dr thomas</PrimaryPhyMNE> <ReferringPhyMNE>f pt referring dr thomas</ReferringPhyMNE> EKG Normal sinus rhythm 76 bpm T-wave flattening noted in the lateral leads Significant artifact noted Impression Assessment and Plan 66-year-old male brought to emergency department by ALS today unresponsive and covered in black stool. Nonspecific colitis per CT. Rib fractures noted on the left. Acute renal failure the creatinine of 7.4. Hypothermic. Sepsis likely secondary to GI source Sepsis, metabolic encephalopathy-with the diarrhea. Likely GI related -Admit to ICU -Continue Zosyn renally dosed -additional 1 liter bolus NS now-then 150 cc/hr -diaz culture -check C diff stool cx -repeat lactic acid in 4 hrs GI bleed-H&H stable -recheck H&H in 8 hrs -sounds like lower GI bleed but will keep protonix 40 mg IV daily on board Acute renal dlqtcgk-frhrwreexuxzk-sexvul probably hypotensive - IV hydration as noted above -Repeat PRP in 4 hours -Consult nephrology elevated trop-likely secondary to renal fx -trend enzymes ? liver lac vs fatty liver-no pain or TTP on exam-probably fatty liver secondary to alcoholism -serial abd exams C4 endplate fx-appears stable -consult spine Rib fx-8-11 on the LEFT. No pneumo -incentive spirometry -may eventually need narcs for pain control but not complaining of pain now DVT prophylaxis -hold off on chemical means d/t trauma -TEDS, SCDs CODE STATUS -LEVEL I FULL CODE i personally examined pt and verified all barlow points w A [facility] PAC feeling better now but still weak and shivering. diarrhea - but ~2-4 times a day for months. gradual weakness worsening for months - relates it's probably been months since he was really able to walk around apartment - mostly has been crawling. notes with hindsight he wishes he'd have sought help sooner - doesn' t even know really how he got here. no current abdominal pain no cp no sob vitals noted, fatigued and shivering, no respiratory distress, lungs cta b/l, abdomen soft nd nt, no cyanosis a/p sepsis picture - unclear if GI sepsis vs sepsis from other source vs all just demargination/metabolic derangement - for now empiric abx, cultures, follow closely ARF - more than likely from progressive dehydration/diarrhea/poor PO intake vs less likely from sepsis picture - concern on ?chronicity given that his sx started per him ~march - maybe making this more of a permanent ARF than something reversible - but aggressive fluids for now, follow lytes closely, renal consult. DVT proph - follow CBC into AM - if no signs of bleeding then start SQ heparin otherwise as above Level of Care Critical Care Resuscitation Status FULL RESUSCITATION VTE Prophylaxis VTE Risk Assessment Done? Y/N: Yes Risk Level: Low Given or contraindicated: T.E.D. Stockings, SCD's, Contraindicated Note Total Time: Critical Care > 74 minutes
[2016-09-17] MEDS ORDERED: ONDANSETRON INJ 2 MG/ML 2 ML VIAL IV PRN (14:45)
[2016-09-17] MEDS ORDERED: ACETAMINOPHEN 325 MG TAB PO PRN (14:45)
[2016-09-17 14:47] LABS: URINE APPEARANCE CLOUDY (CLEAR); URINE COLOR DK YELLOW; URINE EPITHELIAL CELL AUTO >30 /lpf (0-5); URINE NITRITE POS (NEG); URINE SPECIFIC GRAVITY 1.015 (1.000-1.030); UROBILINOGEN NEG (NEG); ZZURINE CULT IF INDIC CATH NO
[2016-09-17 14:57] LABS: MANUAL MICROSCOPIC REQUIRED? NO; REVIEW REQ? YES; URINE BILIRUBIN NEG (NEG)
[2016-09-17 15:11] LABS: URINE MUCUS PRESENT (NONE PRSENT)
[2016-09-17] MEDS ORDERED: PIPERACILL/TAZOBAC CONSULT ACTIVE PRN (15:15)
[2016-09-17 16:24] VITALS: BP 116/81; PULSE 89; TEMP 36.5; Ht 182.9 cm; Wt 74.4 kg
[2016-09-17 17:22] LABS: BUN/CREATININE RATIO 31.5 (10-20); POTASSIUM 3.3 mmol/L (3.5-5.1)
[2016-09-17] MEDS: SODIUM CHLORIDE 0.9% 1000ML 1,000 ML IV SCH ×2 (17:24→23:27)
[2016-09-17 18:52] LABS: HEMATOCRIT 30.2 % (42-52)
[2016-09-17] MEDS ORDERED: INFLUENZA ADMINISTRATION CHARGE ONE (19:30)
[2016-09-17] MEDS ORDERED: INFLUENZA VIRUS QUAD VACCINE 0.5 ML SYR IM. ONE (19:30)
[2016-09-17] MEDS ORDERED: PNEUMOCOCCAL POLYSACCHARIDES 25 MCG/0.5 ML VIAL/SYR IM. ONE (19:30)
[2016-09-17] MEDS ORDERED: PNEUMOCOCCAL ADMINISTRATION CHARGE ONE (19:30)
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
[2016-09-17 20:13] VITALS: BP 108/66; PULSE 96; TEMP 36.5; O2SAT 99
[2016-09-17] MEDS ORDERED: NOREPINEPHRINE BIT INJ 8 MG in DEXTROSE 5% 500ML 500 ML IV PRN (20:15)
[2016-09-17] MEDS: POTASSIUM CHLR 20 MEQ / WTR 20 MEQ in PREMIXED WATER 100 ML IV SCH ×2 (20:25→22:08)
[2016-09-17 20:58] VITALS: BP 105/72; PULSE 78; O2SAT 100
[2016-09-17] MEDS: PANTOprazole INJ 40 MG in SYRINGE 0 ML IV SCH (21:27)
[2016-09-17] MEDS: THIAMINE HCL INJ 500 MG in SODIUM CHLORIDE 0.9% 50ML 50 ML IV SCH (21:27)
[2016-09-17 21:59] VITALS: BP 97/66; PULSE 82; O2SAT 95
[2016-09-17] MEDS: PIPERACILL/TAZOBAC IV 4.5 GM in DEXTROSE 5% 100ML 100 ML IV SCH (22:08)
[2016-09-17 22:43] LABS: HEMATOCRIT 27.2 % (42-52)
[2016-09-17 22:59] VITALS: BP 100/69; PULSE 78; O2SAT 90
[2016-09-17 23:07] LABS: CKMB/CK RATIO 7.7 (0-3.0)
[2016-09-17 23:58] VITALS: BP 98/68; PULSE 80; TEMP 36.5; O2SAT 100
[2016-09-18] VITALS (14 sets, daily range): BP systolic 86–116; BP diastolic 64–76; PULSE 71–85; TEMP 36.4–36.9; O2SAT 89–100
[2016-09-18] MEDS: SODIUM CHLORIDE 0.9% 1000ML 1,000 ML IV SCH ×2 (05:34→08:27)
[2016-09-18] MEDS ORDERED: METRONIDAZOLE / NSS 500 MG in PREMIXED NSS 100 ML IV SCH (06:00)
[2016-09-18 06:02] LABS: MEAN CORPUSCULAR HGB CONC 35.4 g/dl (32-36); MEAN PLATELET VOLUME 10.2 fL (7.4-10.4); PLATELET COUNT 176 K/uL (130-400)
[2016-09-18 06:25] LABS: COMPLETE YES; DOHLE BODIES 1+; HEMATOCRIT 27.4 % (42-52); LYMPH ABS # 0.34 K/uL (1.2-3.4); LYMPHOCYTE % 3.5 %; MEAN CELL VOLUME 89.8 fL (80-100); MEAN CORPUSCULAR HEMOGLOBIN 31.8 pg (25-34); META ABS # 0.16 K/uL (0-0); METAMYELOCYTE % 1.7 %; NEUTROPHILS % 89.6 %; RED BLOOD COUNT 3.05 M/uL (4.7-6.1); TOXIC GRANULATION 1+; WHITE BLOOD COUNT 9.64 K/uL (4.8-10.8)
[2016-09-18 06:45] LABS: ALB/GLOB RATIO 0.4 (0.9-2); CALCIUM 7.3 mg/dl (8.5-10.1); CKMB/CK RATIO 8.4 (0-3.0); CREATININE 4.6 mg/dl (0.60-1.40); MAGNESIUM 1.9 mg/dl (1.8-2.4); PHOSPHORUS 3.1 mg/dl (2.5-4.9); POTASSIUM 3.3 mmol/L (3.5-5.1)
--- NOTE | 2016-09-18 08:10 | Progress Note ---
Subjective Date of Service: Sep 18, 2016. Subjective this pt is pleasantly confused, has no recollection of falling, denies alcohol use, has some pain from rib fractures, no pain from cervical spine fractures, denies recent chest pain to correlate with elevated Troponin Problem List Medical Problems: (1) Altered mental status Status: Acute (2) ARF (acute renal failure) Status: Acute (3) C4 cervical fracture Status: Acute (4) Cellulitis of right elbow Status: Acute (5) Elevated troponin Status: Acute (6) GI bleeding Status: Acute (7) Hypothermia Status: Acute (8) Multiple fractures of ribs, left side, initial encounter for closed fracture Status: Acute Review of Systems Constitutional: No chills, No fatigue, No fever, No weakness Respiratory: No cough, No dyspnea on exertion, No shortness of breath Cardiac: + chest pain, No edema Abdomen: No nausea, No pain Male : No dysuria, No urinary frequency Psychiatric: No anhedonism, No depression symptoms Objective Vital Signs Date Time Temp Pulse Resp B/P Pulse Ox O2 Delivery O2 Flow Rate FiO2 09/18/16 05:58 73 15 116/73 100 Room Air 09/18/16 05:03 74 17 112/66 89 Room Air 09/18/16 04:00 Room Air 09/18/16 03:58 36.5 75 20 113/76 99 Room Air 09/18/16 02:58 79 22 96/68 97 Room Air 09/18/16 01:58 78 20 100/71 98 Room Air 09/18/16 00:58 80 24 106/73 100 Room Air 09/18/16 00:00 Room Air 09/17/16 23:58 36.5 80 19 98/68 100 Room Air 09/17/16 22:59 78 22 100/69 90 Nasal Cannula 2.0 09/17/16 21:59 82 20 97/66 95 Nasal Cannula 2.0 09/17/16 20:58 78 13 105/72 100 Nasal Cannula 2.0 09/17/16 20:13 36.5 96 29 108/66 99 Nasal Cannula 2.0 09/17/16 20:00 Nasal Cannula 2.0 09/17/16 16:36 80 18 116/81 100 4.0 09/17/16 16:24 36.5 89 24 116/81 Nasal Cannula 4.0 09/17/16 16:13 129/78 09/17/16 16:06 124/81 09/17/16 16:03 80 100 09/17/16 15:58 115/81 09/17/16 15:43 131/88 09/17/16 15:33 80 100 09/17/16 15:28 123/87 09/17/16 15:25 78 100 Nasal Cannula 4.0 09/17/16 15:13 126/86 09/17/16 14:58 128/85 09/17/16 14:55 79 100 09/17/16 14:43 114/81 09/17/16 14:30 72 17 106/82 100 Nasal Cannula 6.0 09/17/16 14:28 106/82 09/17/16 14:25 77 100 09/17/16 14:15 36.4 76 126/89 09/17/16 14:13 126/89 09/17/16 13:58 126/87 09/17/16 13:55 78 100 09/17/16 13:48 75 20 117/81 100 Non-Rebreather 09/17/16 13:43 117/81 09/17/16 13:28 121/81 09/17/16 13:25 79 81 09/17/16 13:17 110/82 09/17/16 13:04 88 118/89 Non-Rebreather 10.0 09/17/16 13:02 118/89 09/17/16 12:55 82 09/17/16 12:34 35.8 24 129/75 Non-Rebreather 09/17/16 12:30 99 Non-Rebreather 15.0 09/17/16 12:25 153 Physical Exam General Appearance: + moderate distress, + thin Neck: supple Respiratory/Chest: + decreased breath sounds, + accessory muscle use Cardiovascular: regular rate, rhythm, no murmur Abdomen: normal bowel sounds, soft, + guarding, + tenderness Extremities: no pedal edema, no calf tenderness, + pertinent finding (knee and elbow abrasions) Neurologic/Psychiatric: alert, + disoriented Laboratory Results Last 24 Hours Test 09/17/16 12:25 09/17/16 12:26 09/17/16 12:30 09/17/16 13:27 White Blood Count 16.96 K/uL Red Blood Count 3.69 M/uL Hemoglobin 12.1 g/dL Hematocrit 33.6 % Mean Corpuscular Volume 91.1 fL Mean Corpuscular Hemoglobin 32.8 pg Mean Corpuscular Hemoglobin Concent 36.0 g/dl Platelet Count 287 K/uL Mean Platelet Volume 11.2 fL RDW Standard Deviation 46.5 fL RDW Coefficient of Variation 14.1 % Nucleated RBC Absolute Count (auto) 0.03 K/uL Neutrophils % (Manual) 88.7 % Lymphocytes % (Manual) 1.7 % Monocytes % (Manual) 9.6 % Nucleated Red Blood Cells % 0.2 % Neutrophils # (Manual) 15.04 K/uL Total Absolute Neutrophils 15.04 K/uL Lymphocytes # (Manual) 0.29 K/uL Total Absolute Lymphocytes 0.29 K/uL Monocytes # (Manual) 1.63 K/uL Toxic Granulation 2+ Dohle Bodies 3+ Erythrocyte Sedimentation Rate 64 mm/hr Prothrombin Time 11.7 SECONDS Prothromb Time International Ratio 1.1 Activated Partial Thromboplast Time 25.0 SECONDS Partial Thromboplastin Ratio 1.0 Venous Blood pH 7.38 Venous Blood Partial Pressure CO2 30 mmHg Venous Blood Partial Pressure O2 34 mmHg Venous Blood HCO3 17 mmol/L Venous Blood Oxygen Saturation < 60.0 % Venous Blood Base Excess -6.7 mmol/L Sodium Level 137 mmol/L Potassium Level 3.8 mmol/L Chloride Level 96 mmol/L Carbon Dioxide Level 16 mmol/L Anion Gap 25.0 mmol/L 25.0 mmol/L Blood Urea Nitrogen 202 mg/dl Creatinine 7.40 mg/dl Est Creatinine Clear Calc Drug Dose 9.8 ml/min Estimated GFR () 8.1 Estimated GFR (Non- 7.0 BUN/Creatinine Ratio 27.3 Random Glucose 146 mg/dl Calcium Level 8.6 mg/dl Phosphorus Level 7.6 mg/dl Magnesium Level 2.5 mg/dl Total Bilirubin 0.8 mg/dl Aspartate Amino Transf (AST/SGOT) 34 U/L Alanine Aminotransferase (ALT/SGPT) 19 U/L Alkaline Phosphatase 95 U/L Total Creatine Kinase 107 U/L Creatine Kinase MB 6.7 ng/ml Creatine Kinase MB Ratio 6.3 Troponin I 0.587 ng/ml C-Reactive Protein 25.20 mg/dl Pro-B-Type Natriuretic Peptide 3301 pg/ml Total Protein 6.6 gm/dl Albumin 2.0 gm/dl Globulin 4.6 gm/dl Albumin/Globulin Ratio 0.4 Lipase 241 U/L Procalcitonin 11.23 ng/mL Bedside Lactic Acid Venous 4.38 mmol/L Bedside Hemoglobin 12.6 g/dl Bedside Hematocrit 37 % Bedside Sodium 134 mEq/L Bedside Potassium 3.8 mEq/L Bedside Chloride 96 mEq/L Bedside Total CO2 17 mEq/l Bedside Blood Urea Nitrogen > 140 mg/dl Bedside Creatinine 7.0 mg/dl Bedside Glucose (other) 155 mg/dl Bedside Ionized Calcium (Liliam) 0.93 mmol/l Urine Color DK YELLOW Urine Appearance CLOUDY Urine pH 5.0 Urine Specific [place] 1.015 Urine Protein TRACE Urine Glucose (UA) NEG Urine Ketones NEG Urine Occult Blood TRACE Urine Nitrite POS Urine Bilirubin NEG Urine Urobilinogen NEG Urine Leukocyte Esterase TRACE Urine WBC (Auto) 1-5 /hpf Urine RBC (Auto) 10-30 /hpf Urine Hyaline Casts (Auto) >30 /lpf Urine Epithelial Cells (Auto) >30 /lpf Urine Bacteria (Auto) NEG Urine Renal Epithelial Cells /lpf Urine Pathogenic Casts /lpf Urine Mucus PRESENT Test 09/17/16 16:01 09/17/16 18:40 09/17/16 22:35 09/18/16 00:29 Sodium Level 140 mmol/L Potassium Level 3.3 mmol/L Chloride Level 105 mmol/L Carbon Dioxide Level 14 mmol/L Anion Gap 21.0 mmol/L Blood Urea Nitrogen 189 mg/dl Creatinine 6.00 mg/dl Est Creatinine Clear Calc Drug Dose 12.8 ml/min Estimated GFR () 10.4 Estimated GFR (Non- 9.0 BUN/Creatinine Ratio 31.5 Random Glucose 111 mg/dl Lactic Acid Level 1.9 mmol/L Calcium Level 7.0 mg/dl Magnesium Level 2.0 mg/dl Hemoglobin 10.7 g/dL 9.8 g/dL Hematocrit 30.2 % 27.2 % Iron Level 48 mcg/dl Total Iron Binding Capacity 154 mcg/dl Ferritin 779.0 ng/ml Vitamin B12 Level > 2000 pg/mL Folate 10.29 ng/mL Total Creatine Kinase 95 U/L Creatine Kinase MB 7.3 ng/ml Creatine Kinase MB Ratio 7.7 Troponin I 1.020 ng/ml Bedside Glucose 120 mg/dl Test 09/18/16 05:35 White Blood Count 9.64 K/uL Red Blood Count 3.05 M/uL Hemoglobin 9.7 g/dL Hematocrit 27.4 % Mean Corpuscular Volume 89.8 fL Mean Corpuscular Hemoglobin 31.8 pg Mean Corpuscular Hemoglobin Concent 35.4 g/dl Platelet Count 176 K/uL Mean Platelet Volume 10.2 fL RDW Standard Deviation 47.1 fL RDW Coefficient of Variation 14.2 % Neutrophils % (Manual) 89.6 % Lymphocytes % (Manual) 3.5 % Monocytes % (Manual) 5.2 % Metamyelocytes % 1.7 % Neutrophils # (Manual) 8.64 K/uL Total Absolute Neutrophils 8.64 K/uL Lymphocytes # (Manual) 0.34 K/uL Total Absolute Lymphocytes 0.34 K/uL Monocytes # (Manual) 0.50 K/uL Metamyelocytes # 0.16 K/uL Toxic Granulation 1+ Dohle Bodies 1+ Sodium Level 143 mmol/L Potassium Level 3.3 mmol/L Chloride Level 111 mmol/L Carbon Dioxide Level 17 mmol/L Anion Gap 15.0 mmol/L Blood Urea Nitrogen 152 mg/dl Creatinine 4.60 mg/dl Est Creatinine Clear Calc Drug Dose 16.7 ml/min Estimated GFR () 14.4 Estimated GFR (Non- 12.4 BUN/Creatinine Ratio 33.0 Random Glucose 105 mg/dl Calcium Level 7.3 mg/dl Phosphorus Level 3.1 mg/dl Magnesium Level 1.9 mg/dl Total Bilirubin 0.7 mg/dl Aspartate Amino Transf (AST/SGOT) 26 U/L Alanine Aminotransferase (ALT/SGPT) 12 U/L Alkaline Phosphatase 67 U/L Total Creatine Kinase 77 U/L Creatine Kinase MB 6.5 ng/ml Creatine Kinase MB Ratio 8.4 Troponin I 1.170 ng/ml Total Protein 5.2 gm/dl Albumin 1.6 gm/dl Globulin 3.6 gm/dl Albumin/Globulin Ratio 0.4 Assessment and Plan 66 M initially unresponsive and covered in black stool. Nonspecific colitis per CT. Rib fractures noted on the left. Acute renal failure the creatinine of 7.4. Hypothermic. Sepsis likely secondary to GI source Sepsis, metabolic encephalopathy Zosyn renally dosed volume resuscitated. os c diff colitis, on po vancomycin GI bleed-H&H stable protonix 40 mg IV daily on board Acute renal [id number], plus hypovolemic shock -Consult nephrology elevated trop multifactoral, poor perfusion with low blood pressure-likely secondary to renal fx liver lac vs fatty liver-no pain C4 endplate fx-appears stable-spine surgery feels it is stable, may use c collar for comfort Rib fx-8-11 on the LEFT. No pneumo DVT prevention is SCD - full code
[2016-09-18] MEDS: THIAMINE HCL INJ 500 MG in SODIUM CHLORIDE 0.9% 50ML 50 ML IV SCH ×3 (08:27→20:33)
[2016-09-18] MEDS: PANTOprazole INJ 40 MG in SYRINGE 0 ML IV SCH (08:27)
[2016-09-18] MEDS: POTASSIUM CHLR 10 MEQ / WTR 10 MEQ in PREMIXED WATER 100 ML IV SCH ×3 (08:35→10:31)
[2016-09-18] MEDS ORDERED: VANCOMYCIN HCL 125 MG/2.5ML SOLN PO SCH (09:00)
[2016-09-18] MEDS: RASPBERRY SYRUP 5 ML UDP PO SCH ×4 (09:24→20:35)
[2016-09-18] MEDS: VANCOMYCIN HCL 125 MG/2.5ML SOLN PO SCH ×4 (09:24→20:35)
[2016-09-18] MEDS: PIPERACILL/TAZOBAC IV 4.5 GM in DEXTROSE 5% 100ML 100 ML IV SCH (09:25)
[2016-09-18] MEDS ORDERED: PERFLUTREN LIPID MICROSPHERE (DEFINITY) IV ONE (10:09)
--- NOTE | 2016-09-18 10:20 | Critical Care Progress Note ---
Critical Care Progress Note Date of Service Sep 18, 2016. Attending Dr Tiffani Morales Mr Quiroz feels well this morning. He wishes to eat. Continuing to have diarrhea but is improving. Denies chest pain, abdominal pain or shortness of breath Objective VITAL SIGNS: were reviewed as below GENERAL: no acute distress SKIN: Warm dry, unkept HEAD: Normocephalic and atraumatic EYES: extraocular muscles intact, pupils equal OROPHARYNX: dry mouth, no erythema LUNGS: clear to auscultation, no accessory muscle use, no respiratory distress HEART: Regular rate and rhythm, quiet heart sounds 1+2, no appreciable murmurs ABDOMEN: Soft and nontender, bowel sounds normal BACK: no CVA tenderness EXTREMITIES: Warm and well perfused, no calf tenderness/swelling, no pedal edema NEUROLOGICALLY: Awake alert and oriented without focal deficit. No facial droop. Tremor no longer present at rest but he does have a postural/intention tremor present. Asterixis less present. Cerebellar testing shows mild horizontal nystagmus, dysdiadochokinesis and mild intention tremor. Speech is clear. Vision is grossly normal. MUSCULOSKELETAL: Good muscle tone. No evidence of trauma Assessment & Plan Mr Quiroz is a 66 year old male with history of colon ca s/p sigmoid resection without routine medical care. Assessment: 1. Altered mental status - improving. Multifactorial: sepsis, dehydration, uremia, possible Wernicke's 2. Acute renal failure 3. GI Bleed - Fecal occult positive, Hx colon ca. 4. Sepsis - suspect abdominal source vs bursitis/cellulitis 4. Right elbow infected bursitis 5. Multiple rib fractures 6. Short of breath on exertion 7. Elevated troponin 8. C4 cervical fracture Plan Neuro alert, CT nill acute, no focal neurology on exam pain - acetaminophen PRN Altered mental status - multifactorial metabolic encephalopathy as above. Nystagmus, poor memory and balance problems with alcohol Hx - possible Wernicke' s and will treat with IV thiamine 500mg TID for 3 days, then 250mg/day. Pulmonology: no acute issues Cardiovascular: Short of breath on exertion - BMP 3301, echocardiogram pending report, no pulmonary edema on CXR however Elevated troponin - no chest pain or shortness of breath at rest. Continue to trend until it starts dropping. Echo as above. No ASA Gastrointestinal: GI bleed - hemodynamically stable, trend H&H stable, GI consulted. Keep NPO pending GI consult and echo. Non specific colitis - stool culture, GI consulted Central hypodensity within liver ?focal fat - LFTs normal, given Hx of colon ca. outpatient follow up. /electrolytes Acute kidney injury - suspect prerenal given Hx of diarrhea. Cr coming down, switch to Half NSS 150 MLS/HR. No hydronephrosis on CT. Trend Cr Hypokalemia 3.3 - replace with KCl 10 meq x3 (ordered by Dr Trinidad) Hyperphosphatemia - resolved, secondary to APPLE, continue to monitor drop for refeeding syndrome. Heme/onc Elevated WBC consistent with sepsis Normocytic anemia - GI bleed, B12 high (unclear if he was getting supplement for this), Folate and Iron WNL Infectious Disease: Elevated WBC and procalcitonin - c.diff source, vancomycin QID, stop Zosyn (1/2 BC gram positive cocci likely contaminant) Olecranon bursitis - culture pending. Follow up stool, blood, urine and swab cultures. Miscellaneous: Outpatient records requested C4 teardrop fracture without retropulsion - in [facility], await ortho note Lines and Tubes: x3 peripheral IVs x2 Left upper limb, x1 right antecubital fossa Triple lumen right femoral line - placed 09/17/16 - plan to remove after GI consult and echocardiogram Jaimes catheter VTE/GI prophylaxis: - chemical contraindicated due to GI bleed. SCDs + TEDs - Pantoprazole 40 mg IV BID as above. Code: Full Disposition: - Medically stable to be transferred out of ICU, recommend telemetry given elevated troponin. PT/OT/discharge planning Attending Grain Sacker Resident Physician Supervision Note: I interviewed and examined the patient. Discussed with Dr. Carpenter and agree with findings and plan as documented in the note. Any exceptions or clarifications are listed here: His care was discussed in detail on multidisciplinary rounds and I have personally interviewed and examined him. He is more appropriate from a mental status standpoint compared to yesterday. Overall looks much better. Labs, data , meds reviewed. Less diarrhea and making urine. H/H seems to have stabilized as of this morning and now on PPI infusion. Trop trending down and echo a difficult study but LV function preserved. BC now with GPC in 2 sets. Initially on rounds, it was one set and Zosyn was discontinued. I will resume it again and have paged Dr. Trinidad to discuss. Repeat BC ordered this morning. Decrease 1/2NS to 125ml per hour and continue treatment for C. dif. Await decision from GI regarding EGD. He is stable for transfer to the floor. Documented By: Graciela Nixon Data Medications: Current Inpatient Medications Medications (Trade) Dose Ordered Sig/Miranda Route Start Time Stop Time Status Last Admin Dose Admin Acetaminophen (Tylenol Tab) 650 mg Q4H PRN PO 09/17/16 14:45 10/17/16 14:44 Ondansetron HCl (Zofran Inj) 4 mg Q6H PRN IV 09/17/16 14:45 10/17/16 14:44 Piperacillin Sod/ Tazobactam Sod 1 ea 1 ea UD PRN N/A 09/17/16 15:15 10/17/16 15:14 Pantoprazole Sodium 40 mg/ Syringe 10 ml @ 5 mls/min BID IV 09/17/16 21:00 10/17/16 20:59 09/18/16 08:27 5 MLS/MIN Thiamine HCl 500 mg/Sodium Chloride 55 ml @ 208 mls/hr TID IV 09/17/16 21:00 09/20/16 20:59 09/18/16 08:27 208 MLS/HR Potassium Chloride/Prmx (Kcl 10 Meq / Wtr/Premixed Water) 100 ml @ 100 mls/hr Q1H IV 09/18/16 08:30 09/18/16 11:29 09/18/16 09:25 100 MLS/HR Vancomycin HCl (Vancomycin Oral Soln) 125 mg QID PO 09/18/16 09:00 10/02/16 08:59 09/18/16 09:24 125 MG Raspberry 5 ml 5 ml QID PO 09/18/16 09:00 10/02/16 08:59 09/18/16 09:24 5 ML Sodium Chloride (1/2 Nss 1000ml) 1,000 ml @ 150 mls/hr Q6H40M IV 09/18/16 09:30 10/18/16 09:29 UNV I & O: 24-Hour Column 09/18/16 08:00 Intake Total 6354 ml Output Total 1120 ml Balance 5234 ml Vital Signs: Date Time Temp Pulse Resp B/P Pulse Ox O2 Delivery O2 Flow Rate FiO2 09/18/16 08:00 36.4 71 16 108/70 98 Room Air 09/18/16 05:58 73 15 116/73 100 Room Air 09/18/16 05:03 74 17 112/66 89 Room Air 09/18/16 04:00 Room Air 09/18/16 03:58 36.5 75 20 113/76 99 Room Air 09/18/16 02:58 79 22 96/68 97 Room Air 09/18/16 01:58 78 20 100/71 98 Room Air 09/18/16 00:58 80 24 106/73 100 Room Air 09/18/16 00:00 Room Air 09/17/16 23:58 36.5 80 19 98/68 100 Room Air 09/17/16 22:59 78 22 100/69 90 Nasal Cannula 2.0 09/17/16 21:59 82 20 97/66 95 Nasal Cannula 2.0 09/17/16 20:58 78 13 105/72 100 Nasal Cannula 2.0 09/17/16 20:13 36.5 96 29 108/66 99 Nasal Cannula 2.0 09/17/16 20:00 Nasal Cannula 2.0 09/17/16 16:36 80 18 116/81 100 4.0 09/17/16 16:24 36.5 89 24 116/81 Nasal Cannula 4.0 09/17/16 16:13 129/78 09/17/16 16:06 124/81 09/17/16 16:03 80 100 09/17/16 15:58 115/81 09/17/16 15:43 131/88 09/17/16 15:33 80 100 09/17/16 15:28 123/87 09/17/16 15:25 78 100 Nasal Cannula 4.0 09/17/16 15:13 126/86 09/17/16 14:58 128/85 09/17/16 14:55 79 100 09/17/16 14:43 114/81 09/17/16 14:30 72 17 106/82 100 Nasal Cannula 6.0 09/17/16 14:28 106/82 09/17/16 14:25 77 100 09/17/16 14:15 36.4 76 126/89 09/17/16 14:13 126/89 09/17/16 13:58 126/87 09/17/16 13:55 78 100 09/17/16 13:48 75 20 117/81 100 Non-Rebreather 09/17/16 13:43 117/81 09/17/16 13:28 121/81 09/17/16 13:25 79 81 09/17/16 13:17 110/82 09/17/16 13:04 88 118/89 Non-Rebreather 10.0 09/17/16 13:02 118/89 09/17/16 12:55 82 09/17/16 12:34 35.8 24 129/75 Non-Rebreather 09/17/16 12:30 99 Non-Rebreather 15.0 09/17/16 12:25 153 Laboratory Results: Last 24 Hours Test 09/17/16 12:25 09/17/16 12:26 09/17/16 12:30 09/17/16 13:27 White Blood Count 16.96 K/uL Red Blood Count 3.69 M/uL Hemoglobin 12.1 g/dL Hematocrit 33.6 % Mean Corpuscular Volume 91.1 fL Mean Corpuscular Hemoglobin 32.8 pg Mean Corpuscular Hemoglobin Concent 36.0 g/dl Platelet Count 287 K/uL Mean Platelet Volume 11.2 fL RDW Standard Deviation 46.5 fL RDW Coefficient of Variation 14.1 % Nucleated RBC Absolute Count (auto) 0.03 K/uL Neutrophils % (Manual) 88.7 % Lymphocytes % (Manual) 1.7 % Monocytes % (Manual) 9.6 % Nucleated Red Blood Cells % 0.2 % Neutrophils # (Manual) 15.04 K/uL Total Absolute Neutrophils 15.04 K/uL Lymphocytes # (Manual) 0.29 K/uL Total Absolute Lymphocytes 0.29 K/uL Monocytes # (Manual) 1.63 K/uL Toxic Granulation 2+ Dohle Bodies 3+ Erythrocyte Sedimentation Rate 64 mm/hr Prothrombin Time 11.7 SECONDS Prothromb Time International Ratio 1.1 Activated Partial Thromboplast Time 25.0 SECONDS Partial Thromboplastin Ratio 1.0 Venous Blood pH 7.38 Venous Blood Partial Pressure CO2 30 mmHg Venous Blood Partial Pressure O2 34 mmHg Venous Blood HCO3 17 mmol/L Venous Blood Oxygen Saturation < 60.0 % Venous Blood Base Excess -6.7 mmol/L Sodium Level 137 mmol/L Potassium Level 3.8 mmol/L Chloride Level 96 mmol/L Carbon Dioxide Level 16 mmol/L Anion Gap 25.0 mmol/L 25.0 mmol/L Blood Urea Nitrogen 202 mg/dl Creatinine 7.40 mg/dl Est Creatinine Clear Calc Drug Dose 9.8 ml/min Estimated GFR () 8.1 Estimated GFR (Non- 7.0 BUN/Creatinine Ratio 27.3 Random Glucose 146 mg/dl Calcium Level 8.6 mg/dl Phosphorus Level 7.6 mg/dl Magnesium Level 2.5 mg/dl Total Bilirubin 0.8 mg/dl Aspartate Amino Transf (AST/SGOT) 34 U/L Alanine Aminotransferase (ALT/SGPT) 19 U/L Alkaline Phosphatase 95 U/L Total Creatine Kinase 107 U/L Creatine Kinase MB 6.7 ng/ml Creatine Kinase MB Ratio 6.3 Troponin I 0.587 ng/ml C-Reactive Protein 25.20 mg/dl Pro-B-Type Natriuretic Peptide 3301 pg/ml Total Protein 6.6 gm/dl Albumin 2.0 gm/dl Globulin 4.6 gm/dl Albumin/Globulin Ratio 0.4 Lipase 241 U/L Procalcitonin 11.23 ng/mL Bedside Lactic Acid Venous 4.38 mmol/L Bedside Hemoglobin 12.6 g/dl Bedside Hematocrit 37 % Bedside Sodium 134 mEq/L Bedside Potassium 3.8 mEq/L Bedside Chloride 96 mEq/L Bedside Total CO2 17 mEq/l Bedside Blood Urea Nitrogen > 140 mg/dl Bedside Creatinine 7.0 mg/dl Bedside Glucose (other) 155 mg/dl Bedside Ionized Calcium (Liliam) 0.93 mmol/l Urine Color DK YELLOW Urine Appearance CLOUDY Urine pH 5.0 Urine Specific [place] 1.015 Urine Protein TRACE Urine Glucose (UA) NEG Urine Ketones NEG Urine Occult Blood TRACE Urine Nitrite POS Urine Bilirubin NEG Urine Urobilinogen NEG Urine Leukocyte Esterase TRACE Urine WBC (Auto) 1-5 /hpf Urine RBC (Auto) 10-30 /hpf Urine Hyaline Casts (Auto) >30 /lpf Urine Epithelial Cells (Auto) >30 /lpf Urine Bacteria (Auto) NEG Urine Renal Epithelial Cells /lpf Urine Pathogenic Casts /lpf Urine Mucus PRESENT Test 09/17/16 16:01 09/17/16 18:40 09/17/16 22:35 09/18/16 00:29 Sodium Level 140 mmol/L Potassium Level 3.3 mmol/L Chloride Level 105 mmol/L Carbon Dioxide Level 14 mmol/L Anion Gap 21.0 mmol/L Blood Urea Nitrogen 189 mg/dl Creatinine 6.00 mg/dl Est Creatinine Clear Calc Drug Dose 12.8 ml/min Estimated GFR () 10.4 Estimated GFR (Non- 9.0 BUN/Creatinine Ratio 31.5 Random Glucose 111 mg/dl Lactic Acid Level 1.9 mmol/L Calcium Level 7.0 mg/dl Magnesium Level 2.0 mg/dl Hemoglobin 10.7 g/dL 9.8 g/dL Hematocrit 30.2 % 27.2 % Iron Level 48 mcg/dl Total Iron Binding Capacity 154 mcg/dl Ferritin 779.0 ng/ml Vitamin B12 Level > 2000 pg/mL Folate 10.29 ng/mL Total Creatine Kinase 95 U/L Creatine Kinase MB 7.3 ng/ml Creatine Kinase MB Ratio 7.7 Troponin I 1.020 ng/ml Bedside Glucose 120 mg/dl Test 09/18/16 05:35 White Blood Count 9.64 K/uL Red Blood Count 3.05 M/uL Hemoglobin 9.7 g/dL Hematocrit 27.4 % Mean Corpuscular Volume 89.8 fL Mean Corpuscular Hemoglobin 31.8 pg Mean Corpuscular Hemoglobin Concent 35.4 g/dl Platelet Count 176 K/uL Mean Platelet Volume 10.2 fL RDW Standard Deviation 47.1 fL RDW Coefficient of Variation 14.2 % Neutrophils % (Manual) 89.6 % Lymphocytes % (Manual) 3.5 % Monocytes % (Manual) 5.2 % Metamyelocytes % 1.7 % Neutrophils # (Manual) 8.64 K/uL Total Absolute Neutrophils 8.64 K/uL Lymphocytes # (Manual) 0.34 K/uL Total Absolute Lymphocytes 0.34 K/uL Monocytes # (Manual) 0.50 K/uL Metamyelocytes # 0.16 K/uL Toxic Granulation 1+ Dohle Bodies 1+ Sodium Level 143 mmol/L Potassium Level 3.3 mmol/L Chloride Level 111 mmol/L Carbon Dioxide Level 17 mmol/L Anion Gap 15.0 mmol/L Blood Urea Nitrogen 152 mg/dl Creatinine 4.60 mg/dl Est Creatinine Clear Calc Drug Dose 16.7 ml/min Estimated GFR () 14.4 Estimated GFR (Non- 12.4 BUN/Creatinine Ratio 33.0 Random Glucose 105 mg/dl Calcium Level 7.3 mg/dl Phosphorus Level 3.1 mg/dl Magnesium Level 1.9 mg/dl Total Bilirubin 0.7 mg/dl Aspartate Amino Transf (AST/SGOT) 26 U/L Alanine Aminotransferase (ALT/SGPT) 12 U/L Alkaline Phosphatase 67 U/L Total Creatine Kinase 77 U/L Creatine Kinase MB 6.5 ng/ml Creatine Kinase MB Ratio 8.4 Troponin I 1.170 ng/ml Total Protein 5.2 gm/dl Albumin 1.6 gm/dl Globulin 3.6 gm/dl Albumin/Globulin Ratio 0.4 Resident Tracking Resident Involvement: Resident Care Provided Care Provided: Adult Hospital Medicine (ICU)
[2016-09-18] MEDS: SODIUM CHLORIDE 0.45% 1000ML 1,000 ML IV SCH ×3 (10:31→21:24)
[2016-09-18] MEDS: PANTOprazole INJ 40 MG in DEXTROSE 5% 100ML IV SCH ×3 (10:40→20:32)
[2016-09-18] MEDS ORDERED: PANTOprazole INJ 40 MG in SYRINGE 0 ML IV SCH (11:00)
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
--- NOTE | 2016-09-18 11:15 | ORTHOPEDIC CONSULTATION ---
DATE OF CONSULTATION: 09/18/2016 DATE OF CONSULTATION: 09/18/2016. CHIEF COMPLAINT: Orthopedically from spine perspective of neck pain. HISTORY OF PRESENT ILLNESS: Mr. Quiroz is a 66-year-old gentleman. He was brought via emergency transport. He was found semiconscious in stool at home with an altered mental status. His history was also altered as well because of lack of poor communication. When he came to the Emergency Room he was hypothermic, temperature of 35.8. He was unresponsive at arrival. I am seeing him this morning. This will be the August and he is confused. Responsive to pain stimuli. Does not follow commands or any other issue of coherence. He has no fevers, sweats, chills at this point in time. PAST MEDICAL HISTORY: Positive for colon carcinoma, altered mental status, renal failure, elevated troponin. He had a CT scan of his cervical spine because of neck pain which demonstrated a small little avulsion fracture off the anterior aspect of the C4 vertebrae. I am not sure this even is an acute finding but it is reported. SOCIAL HISTORY: Nonsmoker. There is a history of alcohol problems. He is , lives alone, he is unemployed. ALLERGIES: ATORVASTATIN. HOME MEDICATIONS: Are listed on the chart. PHYSICAL EXAMINATION: GENERAL: He looks older than stated age. He is in no significant distress this morning. He is in a cervical collar. VITAL SIGNS: Blood pressure 117/81. HEAD, EYES, EARS, NOSE, AND THROAT: Pupils are reactive. He had minimal neck tenderness. CARDIAC: Regular rate and rhythm. LUNGS: Clear. EXTREMITIES: No significant muscle edema. He is weak. His sensory is hard to evaluate bilaterally. NEUROLOGIC: From a neuro standpoint, he is alert, disoriented. No gross focal deficits. No hyperreflexia, clonus or signs of spinal cord injury. Images were evaluated demonstrating a small fracture of the C4 vertebrae, old versus new. IMPRESSION: Possible fracture of C4 vertebrae. It is very mild. There are no instability patterns. There are no surgical indications and this should heal up quite readily. DISPOSITION: I recommend a cervical collar at least until we have a better handle on his mental status. If he is combative with the collar it can be discontinued as we are not really holding any significant pathology. I will try to round on him each and every day. I anticipate her leaving the intensive care unit next few days up to the floor. He will probably need long-term rehab. He will not require surgical intervention of the cervical spine but we will follow him.
[2016-09-18 11:35] LABS: HEMATOCRIT 25.8 % (42-52)
--- NOTE | 2016-09-18 12:15 | ECHOCARDIOGRAM REPORT ---
*NOTICE TO RECEIVING [employer] This information is strictly Confidential and protected under [place] law. [place] law prohibits you from making any further disclosure of this information unless further disclosure is expressly permitted by the written consent of the person to whom it pertains or is authorized by law. A general authorization for the release of medical or other information is not sufficient for this purpose. Hospital accepts no responsibility if the information is made available to any other person, INCLUDING THE PATIENT. Interpretation Summary * Name: MONALISA REID Study Date: 09/18/2016 07:21 AM BP: 96/68 mmHg * Patient Location: .MSICU\S\E108\S\1 HR: 79 * : 1950 (M/d/yyy) Gender: Male Height: 72 in * Age: 66 yrs Ethnicity: CA Weight: 162 lb * Ordering Physician: Jack Carpenter * Performed By: Kimberly Chan * * Reason For Study: SYNCOPE * BSA: 1.9 m2 * -- Conclusions -- * 1. Left ventricle is not well visualized. Cannot estimate ejection fraction. LV systolic function does not appear to be significantly reduced, but left ventricle is only visualized in limited views. Cannot assess wall motion due to poor image quality. Type 1 diastolic dysfunction. * 2. Valves are not well visualized. * 3. Poor image quality. Left ventricle not well visualized, even with IV echo contrast, therefore inhibiting LV systolic function and wall motion analysis. Procedure Details * A complete two-dimensional transthoracic echocardiogram was performed (2D, M-mode, Doppler and color flow Doppler). * The study was technically limited. * The study was technically difficult. * Limited views were obtained. * There were technical limitations due to patient's poor positioning due to patient in a neck brace and unable to move. * A contrast injection of Definity was performed to improve assessment of LV function. * Contrast was injected into an intravenous site in the left arm. * One vial of Definity ultrasound contrast was diluted in normal saline to a total volume of 10 ml. A total of '2' ml of solution was administered during imaging. * Lot # [id number] of Definity utilized for procedure. * Expiration date 09/14. * The attending nurse who injected the contrast agent was Nitza Hughes RN. Left Ventricle * Left ventricle not well visualized. Cannot estimate ejection fraction. LV systolic function does not appear to be significantly reduced, but left ventricle is only visualized in limited views. Cannot assess wall motion due to poor image quality. Right Ventricle * Right ventricle not well visualized, but appears grossly normal in size to mildly dilated. Normal right ventricular systolic function. * The right ventricular systolic function is normal as assessed by tricuspid annular plane systolic excursion (TAPSE) (normal >1.5 cm). Atria * The left atrium is not well visualized. * Right atrial size is normal. Mitral Valve * The mitral valve is not well visualized. * There is no mitral valve stenosis. Tricuspid Valve * The tricuspid valve is not well visualized. * Tricuspid stenosis is absent. Aortic Valve * The aortic valve is not well visualized. * Probably trileaflet aortic valve. Pulmonic Valve * The pulmonic valve is not well visualized. Great Vessels * The aortic root is normal size. Pericardium/Pleural * There is no pericardial effusion. Great Vessels * IVC not well visualized but appears to be normal in size. MMode 2D Measurements and Calculations IVSd 1.0 cm LVIDd 4.4 cm LVPWd 0.86 cm IVS/LVPW 1.2 EDV(Teich) 88.0 ml EDV(cubed) 85.6 ml LV mass(C)d 135.4 grams LV mass(C)dI 69.5 grams/m\S\2 Ao root diam 4.0 cm Ao root area 12.5 cm\S\2 ACS 1.1 cm asc Aorta Diam 3.3 cm LVOT diam 2.1 cm LVOT area 3.5 cm\S\2 Doppler Measurements and Calculations MV E max terri 45.1 cm/sec MV A max terri 70.8 cm/sec MV E/A 0.64 MV dec time 0.20 sec LV V1 max PG 2.3 mmHg LV V1 max 75.7 cm/sec PA V2 max 117.4 cm/sec PA max PG 5.5 mmHg
[2016-09-18] MEDS ORDERED: PIPERACILL/TAZOBAC CONSULT ACTIVE PRN (15:45)
[2016-09-18] MEDS ORDERED: PIPERACILL/TAZOBAC IV 4.5 GM in DEXTROSE 5% 100ML 100 ML IV SCH (22:00)
[2016-09-19 00:01] VITALS: BP 109/66; PULSE 70; TEMP 36.7; O2SAT 99
[2016-09-19] MEDS: PANTOprazole INJ 40 MG in DEXTROSE 5% 100ML IV SCH ×5 (01:36→21:57)
[2016-09-19 04:00] VITALS: O2SAT 98
[2016-09-19 04:21] VITALS: BP 94/63; PULSE 66; TEMP 36.3; O2SAT 98
[2016-09-19 05:54] LABS: HEMATOCRIT 27.3 % (42-52); MEAN CORPUSCULAR HGB CONC 35.2 g/dl (32-36); MEAN PLATELET VOLUME 10.1 fL (7.4-10.4); PLATELET COUNT 150 K/uL (130-400); WHITE BLOOD COUNT 7.02 K/uL (4.8-10.8)
[2016-09-19] MEDS: SODIUM CHLORIDE 0.45% 1000ML 1,000 ML IV SCH ×3 (06:05→16:48)
[2016-09-19 06:21] LABS: COMPLETE YES; DOHLE BODIES 2+; EOSINOPHIL % 0.9 %; LYMPH ABS # 0.49 K/uL (1.2-3.4); NEUTROPHILS % 78.2 %; ROULEAUX 1+; TOXIC GRANULATION 3+
[2016-09-19 06:25] LABS: BUN/CREATININE RATIO 34.8 (10-20); CALCIUM 7.9 mg/dl (8.5-10.1); CREATININE 2.6 mg/dl (0.60-1.40); MAGNESIUM 1.5 mg/dl (1.8-2.4); PHOSPHORUS 2.2 mg/dl (2.5-4.9); POTASSIUM 3.5 mmol/L (3.5-5.1)
[2016-09-19 07:17] VITALS: BP 103/73; PULSE 65; TEMP 36.6; O2SAT 98
[2016-09-19] MEDS: VANCOMYCIN HCL 125 MG/2.5ML SOLN PO SCH ×4 (08:15→20:32)
[2016-09-19] MEDS: RASPBERRY SYRUP 5 ML UDP PO SCH ×4 (08:15→20:32)
[2016-09-19] MEDS: THIAMINE HCL INJ 500 MG in SODIUM CHLORIDE 0.9% 50ML 50 ML IV SCH ×3 (08:16→20:32)
--- NOTE | 2016-09-19 08:46 | ORTHOPEDICS PROGRESS NOTE ---
DATE: 09/19/2016 DATE: 09/19/2016. SUBJECTIVE: He is alert, stable, much better than yesterday. He has made a remarkable recovery. He has essentially 0 neck pain. The cervical collar is bothering him. OBJECTIVE: On examination at the bedside he has good range of motion. He has no point tenderness. I have reviewed his films. IMPRESSION: Strain, sprain of the cervical spine, possible old fracture. Completely stable cervical spine. No instability factors or properties. DISPOSITION: We will do without the cervical collar, let him up and ambulatory today. Hopefully discharge home tomorrow. We can see him back for followup as needed. He really does not need a follow-up appointment.
--- NOTE | 2016-09-19 09:33 | Gastroenterology Progress Note ---
Progress Note Date of Service: Sep 19, 2016 Subjective Pt evaluation today including: conversation w/ patient Mr. Quiroz was seen and examined this morning. He has no GI complaints. He is denying any abdominal pain or discomfort. He is tolerating his c.diff treatment. He is feeling better but is still weak. Oriented to person place and location. He is still hungry and requesting additional food - he is currently on clear liquid diet. Review of Systems Constitutional: + weakness, No chills, No fever Respiratory: No cough, No shortness of breath Cardiac: No chest pain, No edema Abdomen: No GI bleeding, No constipation, No diarrhea, No nausea, No pain, No vomiting Medications Current Inpatient Medications Medications (Trade) Dose Ordered Sig/Miranda Route Start Time Stop Time Status Last Admin Dose Admin Acetaminophen (Tylenol Tab) 650 mg Q4H PRN PO 09/17/16 14:45 10/17/16 14:44 Ondansetron HCl 4 mg 4 mg Q6H PRN IV 09/17/16 14:45 10/17/16 14:44 Thiamine HCl/ Sodium Chloride (Vitamin B-1 Inj/ Nss 50ml) 55 ml @ 208 mls/hr TID IV 09/17/16 21:00 09/20/16 20:59 09/19/16 08:16 208 MLS/HR Vancomycin HCl (Vancomycin Oral Soln) 125 mg QID PO 09/18/16 09:00 10/02/16 08:59 09/19/16 08:15 125 MG Raspberry 5 ml 5 ml QID PO 09/18/16 09:00 10/02/16 08:59 09/19/16 08:15 5 ML Sodium Chloride 1,000 ml @ 125 mls/hr Q8H IV 09/18/16 09:30 10/18/16 09:29 09/19/16 06:05 125 MLS/HR Pantoprazole Sodium 40 mg/ Dextrose 100 ml @ 20 mls/hr Q5H IV 09/18/16 10:30 10/18/16 10:29 09/19/16 06:28 20 MLS/HR Clindamycin Phosphate/Dextrose (Cleocin Iv/ Dextrose Add-[place] 50ML) 54 ml @ 100 mls/hr Q8H IV 09/19/16 09:00 09/29/16 08:59 UNV Objective Vital Signs Date Time Temp Pulse Resp B/P Pulse Ox O2 Delivery O2 Flow Rate FiO2 09/19/16 08:00 Room Air 09/19/16 07:17 36.6 65 20 103/73 98 Room Air 09/19/16 04:21 36.3 66 15 94/63 98 09/19/16 04:00 98 Room Air 09/19/16 00:01 36.7 70 22 109/66 99 Room Air 09/19/16 00:01 99 Room Air 09/18/16 20:00 100 Room Air 09/18/16 19:18 36.4 79 24 98/65 100 Room Air 09/18/16 16:00 36.9 84 18 92/67 96 Room Air 09/18/16 16:00 Room Air 09/18/16 15:17 78 99 09/18/16 14:00 85 20 86/64 97 Room Air 09/18/16 12:00 36.7 71 18 103/70 100 Room Air 09/18/16 12:00 Room Air 09/18/16 10:00 74 18 96/72 99 Room Air Physical Exam General Appearance: no apparent distress Eyes: PERRL, EOMI ENT: hearing grossly normal Neck: supple, trachea midline Respiratory/Chest: lungs clear, normal breath sounds, no respiratory distress, no accessory muscle use Cardiovascular: regular rate, rhythm, no edema, no gallop, no JVD, no murmur Abdomen: normal bowel sounds, non tender, soft, no organomegaly, no pulsatile mass Skin: normal color, no jaundice, warm/dry Laboratory Results Last 24 Hours Test 09/18/16 11:27 09/18/16 11:29 09/19/16 05:17 Hemoglobin 9.1 g/dL 9.6 g/dL Hematocrit 25.8 % 27.3 % Troponin I 1.090 ng/ml Bedside Glucose 94 mg/dl White Blood Count 7.02 K/uL Red Blood Count 3.00 M/uL Mean Corpuscular Volume 91.0 fL Mean Corpuscular Hemoglobin 32.0 pg Mean Corpuscular Hemoglobin Concent 35.2 g/dl Platelet Count 150 K/uL Mean Platelet Volume 10.1 fL RDW Standard Deviation 48.7 fL RDW Coefficient of Variation 14.5 % Neutrophils % (Manual) 78.2 % Lymphocytes % (Manual) 7.0 % Monocytes % (Manual) 13.9 % Eosinophils % (Manual) 0.9 % Neutrophils # (Manual) 5.49 K/uL Total Absolute Neutrophils 5.49 K/uL Lymphocytes # (Manual) 0.49 K/uL Total Absolute Lymphocytes 0.49 K/uL Monocytes # (Manual) 0.98 K/uL Eosinophils # (Manual) 0.06 K/uL Toxic Granulation 3+ Dohle Bodies 2+ Rouleau 1+ Sodium Level 146 mmol/L Potassium Level 3.5 mmol/L Chloride Level 114 mmol/L Carbon Dioxide Level 19 mmol/L Anion Gap 13.0 mmol/L Blood Urea Nitrogen 90 mg/dl Creatinine 2.60 mg/dl Est Creatinine Clear Calc Drug Dose 29.6 ml/min Estimated GFR () 28.7 Estimated GFR (Non- 24.8 BUN/Creatinine Ratio 34.8 Random Glucose 97 mg/dl Calcium Level 7.9 mg/dl Phosphorus Level 2.2 mg/dl Magnesium Level 1.5 mg/dl Assessment and Plan Patient is a 66 year old male with c.diff, sepsis, APPLE (appears to be responding to fluids), C4 fracture and elevated troponin. There was report of melena prior to arrival and heme + stools. His BP at the time of assessment was 103/73 with a stable H&H of 9.6/27. Differentials include upper GI bleed - esophageal varices, gastritis, esophagitis, PUD, malignancy etc Plan PPI drip Clears as tolerated trend H&H monitor stools complete course of C.diff treatment with PO vanco Transfuse as needed Hold on EGD as H&H is stable He will need a colonoscopy at some point with hx of colon CA resection and no repeat - we will office this as an outpatient if he chooses to follow with [facility] again. EGD/Colon as an outpatient if not done during admission. GI will watch peripherally - please call with any acute changes.
[2016-09-19] MEDS: CLINDAMYCIN IV 600 MG in DEXTROSE 5% ADD-VANTAGE 50ML 50 ML IV SCH ×2 (11:54→20:32)
[2016-09-19 15:34] VITALS: BP 94/59; PULSE 77; TEMP 36.6; O2SAT 100
--- NOTE | 2016-09-19 16:13 | Progress Note ---
Subjective Date of Service: Sep 19, 2016. Subjective This pt is awake but states he cannot walk of stand, he still is not forth comming about his family or need to contact anyone Problem List Medical Problems: (1) Altered mental status Status: Acute (2) ARF (acute renal failure) Status: Acute (3) C4 cervical fracture Status: Acute (4) Cellulitis of right elbow Status: Acute (5) Elevated troponin Status: Acute (6) GI bleeding Status: Acute (7) Hypothermia Status: Acute (8) Multiple fractures of ribs, left side, initial encounter for closed fracture Status: Acute Review of Systems Constitutional: + fatigue, + weakness Respiratory: No cough, No shortness of breath Cardiac: No chest pain, No edema Abdomen: No diarrhea, No nausea, No pain, No vomiting Male : No dysuria, No urinary frequency Psychiatric: No anhedonism, No depression symptoms Objective Vital Signs Date Time Temp Pulse Resp B/P Pulse Ox O2 Delivery O2 Flow Rate FiO2 09/19/16 15:34 36.6 77 18 94/59 100 Room Air 09/19/16 10:51 36.6 65 20 98 09/19/16 08:00 Room Air 09/19/16 07:17 36.6 65 20 103/73 98 Room Air 09/19/16 04:21 36.3 66 15 94/63 98 09/19/16 04:00 98 Room Air 09/19/16 00:01 36.7 70 22 109/66 99 Room Air 09/19/16 00:01 99 Room Air 09/18/16 20:00 100 Room Air 09/18/16 19:18 36.4 79 24 98/65 100 Room Air Physical Exam General Appearance: WD/WN, + mild distress Neck: supple, no JVD Respiratory/Chest: chest non-tender, lungs clear, normal breath sounds Cardiovascular: regular rate, rhythm, no murmur Abdomen: normal bowel sounds, non tender, soft Extremities: no pedal edema, no calf tenderness, + swelling, + pertinent finding (open area to right elbow) Neurologic/Psychiatric: alert, + disoriented Laboratory Results Last 24 Hours Test 09/19/16 05:17 White Blood Count 7.02 K/uL Red Blood Count 3.00 M/uL Hemoglobin 9.6 g/dL Hematocrit 27.3 % Mean Corpuscular Volume 91.0 fL Mean Corpuscular Hemoglobin 32.0 pg Mean Corpuscular Hemoglobin Concent 35.2 g/dl Platelet Count 150 K/uL Mean Platelet Volume 10.1 fL RDW Standard Deviation 48.7 fL RDW Coefficient of Variation 14.5 % Neutrophils % (Manual) 78.2 % Lymphocytes % (Manual) 7.0 % Monocytes % (Manual) 13.9 % Eosinophils % (Manual) 0.9 % Neutrophils # (Manual) 5.49 K/uL Total Absolute Neutrophils 5.49 K/uL Lymphocytes # (Manual) 0.49 K/uL Total Absolute Lymphocytes 0.49 K/uL Monocytes # (Manual) 0.98 K/uL Eosinophils # (Manual) 0.06 K/uL Toxic Granulation 3+ Dohle Bodies 2+ Rouleau 1+ Sodium Level 146 mmol/L Potassium Level 3.5 mmol/L Chloride Level 114 mmol/L Carbon Dioxide Level 19 mmol/L Anion Gap 13.0 mmol/L Blood Urea Nitrogen 90 mg/dl Creatinine 2.60 mg/dl Est Creatinine Clear Calc Drug Dose 29.6 ml/min Estimated GFR () 28.7 Estimated GFR (Non- 24.8 BUN/Creatinine Ratio 34.8 Random Glucose 97 mg/dl Calcium Level 7.9 mg/dl Phosphorus Level 2.2 mg/dl Magnesium Level 1.5 mg/dl Assessment and Plan 66 M initially unresponsive and covered in black stool. Nonspecific colitis per CT. Rib fractures noted on the left. Acute renal failure the creatinine of 7.4. Hypothermic. Sepsis likely secondary to GI source Labs, vital signs and cultures reviewed 09/19 Sepsis, metabolic encephalopathy has show to have acute c diff colitis, on po vancomycin, did have 2/2 blood cultures and wound culture with MSSA will change zosyn to clinda 09/19 GI bleed-H&H continues to be stable protonix 40 mg IV daily GI will like to scope after treated and recovered from C Diff unless becomes unstable Acute renal ptehyqf-axveeabyutzwlr-aksctb, plus hypovolemic shock improving - elevated trop multifactoral, poor perfusion with low blood pressure-likely secondary to renal fx, no chest pain echo difficult to read, will consider repeat once recovered liver lac vs fatty liver-no pain stable C4 endplate fx-appears stable-spine surgery feels it is stable, may use c collar for comfort, pt now refusing to wear Rib fx-8-11 on the LEFT. No pneumo DVT prevention is SCD - full code dispo placement for rehab
[2016-09-19 23:41] VITALS: BP 93/53; PULSE 70; TEMP 36.4; O2SAT 99
[2016-09-20] MEDS: SODIUM CHLORIDE 0.45% 1000ML 1,000 ML IV SCH ×3 (00:52→17:36)
[2016-09-20] MEDS: PANTOprazole INJ 40 MG in DEXTROSE 5% 100ML IV SCH ×6 (02:24→22:11)
[2016-09-20] MEDS: CLINDAMYCIN IV 600 MG in DEXTROSE 5% ADD-VANTAGE 50ML 50 ML IV SCH ×3 (04:08→20:13)
[2016-09-20 06:22] LABS: HEMATOCRIT 26.2 % (42-52); MEAN CELL VOLUME 91.3 fL (80-100); MEAN CORPUSCULAR HEMOGLOBIN 31.7 pg (25-34); MEAN CORPUSCULAR HGB CONC 34.7 g/dl (32-36); MEAN PLATELET VOLUME 9.6 fL (7.4-10.4); PLATELET COUNT 129 K/uL (130-400); RED BLOOD COUNT 2.87 M/uL (4.7-6.1); WHITE BLOOD COUNT 7.21 K/uL (4.8-10.8)
[2016-09-20 06:57] LABS: COMPLETE YES; DOHLE BODIES 2+; EOSINOPHIL % 0.9 %; LYMPH ABS # 0.68 K/uL (1.2-3.4); LYMPHOCYTE % 9.5 %; NEUTROPHILS % 86.2 %; TOXIC GRANULATION 3+
[2016-09-20 07:33] LABS: BUN/CREATININE RATIO 33.2 (10-20); CREATININE 1.2 mg/dl (0.60-1.40); MAGNESIUM 0.9 mg/dl (1.8-2.4); PHOSPHORUS 2.4 mg/dl (2.5-4.9)
[2016-09-20 07:44] VITALS: BP 99/62; PULSE 77; TEMP 36.2; O2SAT 100
--- NOTE | 2016-09-20 07:49 | Progress Note ---
Subjective Date of Service: Sep 20, 2016. Subjective this pt is doing well, has limited memory for placement Problem List Medical Problems: (1) Altered mental status Status: Acute (2) ARF (acute renal failure) Status: Acute (3) C4 cervical fracture Status: Acute (4) Cellulitis of right elbow Status: Acute (5) Elevated troponin Status: Acute (6) GI bleeding Status: Acute (7) Hypothermia Status: Acute (8) Multiple fractures of ribs, left side, initial encounter for closed fracture Status: Acute Review of Systems Constitutional: No chills, No fever Respiratory: No cough, No shortness of breath Cardiac: No chest pain, No edema Abdomen: No diarrhea, No nausea, No pain, No vomiting Male : No dysuria, No urinary frequency Objective Vital Signs Date Time Temp Pulse Resp B/P Pulse Ox O2 Delivery O2 Flow Rate FiO2 09/20/16 07:44 36.2 77 20 99/62 100 Room Air 09/20/16 00:00 Room Air 09/19/16 23:41 36.4 70 18 93/53 99 Room Air 09/19/16 20:00 Room Air 09/19/16 15:34 36.6 77 18 94/59 100 Room Air 09/19/16 10:51 36.6 65 20 98 09/19/16 08:00 Room Air Physical Exam General Appearance: WD/WN, + mild distress Eyes: PERRL, EOMI Neck: supple, no JVD Respiratory/Chest: chest non-tender, lungs clear, normal breath sounds Cardiovascular: regular rate, rhythm, no murmur Abdomen: normal bowel sounds, non tender, soft Extremities: no pedal edema, no calf tenderness Neurologic/Psychiatric: alert, oriented x 3 Laboratory Results Last 24 Hours Test 09/20/16 06:05 White Blood Count 7.21 K/uL Red Blood Count 2.87 M/uL Hemoglobin 9.1 g/dL Hematocrit 26.2 % Mean Corpuscular Volume 91.3 fL Mean Corpuscular Hemoglobin 31.7 pg Mean Corpuscular Hemoglobin Concent 34.7 g/dl Platelet Count 129 K/uL Mean Platelet Volume 9.6 fL RDW Standard Deviation 48.3 fL RDW Coefficient of Variation 14.6 % Neutrophils % (Manual) 86.2 % Lymphocytes % (Manual) 9.5 % Monocytes % (Manual) 3.4 % Eosinophils % (Manual) 0.9 % Neutrophils # (Manual) 6.22 K/uL Total Absolute Neutrophils 6.22 K/uL Lymphocytes # (Manual) 0.68 K/uL Total Absolute Lymphocytes 0.68 K/uL Monocytes # (Manual) 0.25 K/uL Eosinophils # (Manual) 0.06 K/uL Toxic Granulation 3+ Dohle Bodies 2+ Sodium Level 141 mmol/L Potassium Level 3.0 mmol/L Chloride Level 109 mmol/L Carbon Dioxide Level 21 mmol/L Anion Gap 11.0 mmol/L Blood Urea Nitrogen 40 mg/dl Creatinine 1.20 mg/dl Est Creatinine Clear Calc Drug Dose 64.6 ml/min Estimated GFR () 73.1 Estimated GFR (Non- 63.1 BUN/Creatinine Ratio 33.2 Random Glucose 100 mg/dl Calcium Level 7.0 mg/dl Phosphorus Level 2.4 mg/dl Magnesium Level 0.9 mg/dl Assessment and Plan 66 M initially unresponsive and covered in black stool. Sepsis likely secondary colitis per CT found to be c diff colitis. Rib fractures noted on the left. Acute renal failure the creatinine of 7.4. Hypothermic. Labs, vital signs and cultures reviewed 09/20, need to replete K and Mag Sepsis, metabolic encephalopathy resolved, has show to have acute c diff colitis , po vancomycin started 09/17 , did have 2/2 blood cultures and wound culture with MSSA clinda 09/19 GI bleed-H&H stable hgb protonix 40 mg changed to po 09/20 GI will like to scope after treated and recovered from C Diff unless becomes unstable Acute renal ahkfbsg-fjvihzbushgepx-mojtac, plus hypovolemic shock resolved elevated trop multifactorial, poor perfusion with low blood pressure-likely secondary to renal fx, no chest pain echo difficult to read C4 endplate fx-appears stable-spine surgery feels it is stable, may use c collar for comfort, pt now refusing to wear Rib fx-8-11 on the LEFT. No pneumo DVT prevention is SCD - full code dispo placement for rehab
[2016-09-20] MEDS: THIAMINE HCL INJ 500 MG in SODIUM CHLORIDE 0.9% 50ML 50 ML IV SCH ×3 (08:05→21:08)
[2016-09-20] MEDS: RASPBERRY SYRUP 5 ML UDP PO SCH ×4 (08:06→21:11)
[2016-09-20] MEDS: VANCOMYCIN HCL 125 MG/2.5ML SOLN PO SCH ×4 (08:06→21:11)
[2016-09-20] MEDS: MAGNESIUM SULFATE 1GM / D5W 1 GM in PREMIXED IN D5W 100 ML IV SCH ×2 (08:20→12:31)
[2016-09-20] MEDS: POTASSIUM CHLORIDE 20 MEQ TABCR PO SCH ×2 (08:20→21:11)
[2016-09-20 15:05] VITALS: BP 90/54; PULSE 73; TEMP 36; O2SAT 99
[2016-09-21 00:29] VITALS: BP 91/62; PULSE 79; TEMP 37; O2SAT 99
[2016-09-21] MEDS: PANTOprazole INJ 40 MG in DEXTROSE 5% 100ML IV SCH ×4 (01:46→18:06)
[2016-09-21] MEDS: SODIUM CHLORIDE 0.45% 1000ML 1,000 ML IV SCH ×3 (01:53→16:46)
[2016-09-21] MEDS: CLINDAMYCIN IV 600 MG in DEXTROSE 5% ADD-VANTAGE 50ML 50 ML IV SCH ×3 (05:12→21:10)
[2016-09-21 07:22] LABS: HEMATOCRIT 25.4 % (42-52); MEAN CORPUSCULAR HEMOGLOBIN 31.5 pg (25-34); MEAN CORPUSCULAR HGB CONC 34.6 g/dl (32-36); PLATELET COUNT 132 K/uL (130-400); RED BLOOD COUNT 2.79 M/uL (4.7-6.1); WHITE BLOOD COUNT 7.67 K/uL (4.8-10.8)
[2016-09-21 07:50] LABS: BASO % 0.1 %; BASO ABS # 0.01 K/uL (0-0.2); COMPLETE YES; EOS % 2.2 %; IG% 6.1 %; LYMPH % 8.7 %; LYMPH ABS # 0.67 K/uL (1.2-3.4); MONO % 14.1 %; NEUT % 68.8 %; TOXIC GRANULATION 2+
--- NOTE | 2016-09-21 08:02 | Progress Note ---
Subjective Date of Service: Sep 21, 2016. Subjective this pt is pleasantly confused but incontinent of loose brown stool. no other focal complaints Problem List Medical Problems: (1) Altered mental status Status: Acute (2) ARF (acute renal failure) Status: Acute (3) C4 cervical fracture Status: Acute (4) Cellulitis of right elbow Status: Acute (5) Elevated troponin Status: Acute (6) GI bleeding Status: Acute (7) Hypothermia Status: Acute (8) Multiple fractures of ribs, left side, initial encounter for closed fracture Status: Acute Review of Systems Constitutional: No chills, No fever, No weakness Respiratory: No cough, No shortness of breath Cardiac: No chest pain, No edema Abdomen: + diarrhea, No constipation, No nausea, No pain, No vomiting Musculoskeletal: No joint pain, No muscle pain Male : No dysuria, No urinary frequency Objective Vital Signs Date Time Temp Pulse Resp B/P Pulse Ox O2 Delivery O2 Flow Rate FiO2 09/21/16 00:29 37.0 79 16 91/62 99 Room Air 09/21/16 00:00 Room Air 09/20/16 15:05 36.0 73 22 90/54 99 Room Air 09/20/16 08:29 Room Air Physical Exam General Appearance: + mild distress, + thin Eyes: PERRL, EOMI Neck: supple, no JVD Respiratory/Chest: chest non-tender, lungs clear, normal breath sounds Cardiovascular: regular rate, rhythm, no murmur Abdomen: normal bowel sounds, non tender, soft Extremities: no pedal edema, no calf tenderness Neurologic/Psychiatric: alert, + disoriented Laboratory Results Last 24 Hours Test 09/21/16 06:55 White Blood Count 7.67 K/uL Red Blood Count 2.79 M/uL Hemoglobin 8.8 g/dL Hematocrit 25.4 % Mean Corpuscular Volume 91.0 fL Mean Corpuscular Hemoglobin 31.5 pg Mean Corpuscular Hemoglobin Concent 34.6 g/dl Platelet Count 132 K/uL Mean Platelet Volume 10.0 fL Neutrophils (%) (Auto) 68.8 % Lymphocytes (%) (Auto) 8.7 % Monocytes (%) (Auto) 14.1 % Eosinophils (%) (Auto) 2.2 % Basophils (%) (Auto) 0.1 % Neutrophils # (Auto) 5.27 K/uL Lymphocytes # (Auto) 0.67 K/uL Monocytes # (Auto) 1.08 K/uL Eosinophils # (Auto) 0.17 K/uL Basophils # (Auto) 0.01 K/uL RDW Standard Deviation 48.2 fL RDW Coefficient of Variation 14.4 % Immature Granulocyte % (Auto) 6.1 % Immature Granulocyte # (Auto) 0.47 K/uL Toxic Granulation 2+ Assessment and Plan 66 M initially unresponsive and covered in black stool. Sepsis likely secondary colitis per CT found to be c diff colitis. Rib fractures noted on the left. Acute renal failure the creatinine of 7.4. Hypothermic. Labs, vital signs and cultures reviewed 09/21, hgb keeps falling, maybe acute blood loss and hemodilutional anemia, currently with brown stool, still no plan to 'scope Sepsis, metabolic encephalopathy resolved, has acute c diff colitis, po vancomycin started 09/17 , did have 2/2 blood cultures and wound culture with MSSA clinda 09/19 GI bleed protonix 40 mg changed to po 09/20, as HGB has fallen 4 gms from admission and now nearing transfusion range will re discuss with GI medicine Acute renal dygsirq-bifsqcaoopshmq-xiguku, plus hypovolemic shock resolved elevated trop multifactorial, poor perfusion with low blood pressure-likely secondary to renal fx, not suspecting acute coronary syndrome C4 endplate fx-appears stable-spine surgery feels it is stable, may use c collar for comfort, Rib fx-8-11 on the LEFT. pain control DVT prevention is SCD - full code dispo placement for rehab
[2016-09-21 08:29] LABS: BUN/CREATININE RATIO 20.8 (10-20); CALCIUM 6.5 mg/dl (8.5-10.1); CREATININE 0.89 mg/dl (0.60-1.40); MAGNESIUM 0.8 mg/dl (1.8-2.4); PHOSPHORUS 2.4 mg/dl (2.5-4.9); POTASSIUM 3.1 mmol/L (3.5-5.1)
[2016-09-21 08:39] VITALS: BP 100/65; PULSE 102; TEMP 36.5; O2SAT 96
[2016-09-21] MEDS: MAGNESIUM SULFATE 1GM / D5W 1 GM in PREMIXED IN D5W 100 ML IV SCH ×3 (09:21→11:48)
[2016-09-21] MEDS: VANCOMYCIN HCL 125 MG/2.5ML SOLN PO SCH ×4 (09:22→21:12)
[2016-09-21] MEDS: RASPBERRY SYRUP 5 ML UDP PO SCH ×4 (09:22→21:12)
--- NOTE | 2016-09-21 12:33 | Gastroenterology Progress Note ---
Progress Note Date of Service: Sep 21, 2016 Subjective Pt evaluation today including: conversation w/ patient "I feel better" no pain, nausea. Medications Current Inpatient Medications Medications (Trade) Dose Ordered Sig/Miranda Route Start Time Stop Time Status Last Admin Dose Admin Acetaminophen (Tylenol Tab) 650 mg Q4H PRN PO 09/17/16 14:45 10/17/16 14:44 Ondansetron HCl (Zofran Inj) 4 mg Q6H PRN IV 09/17/16 14:45 10/17/16 14:44 Vancomycin HCl (Vancomycin Oral Soln) 125 mg QID PO 09/18/16 09:00 10/02/16 08:59 09/21/16 09:22 125 MG Raspberry 5 ml 5 ml QID PO 09/18/16 09:00 10/02/16 08:59 09/21/16 09:22 5 ML Sodium Chloride 1,000 ml @ 125 mls/hr Q8H IV 09/18/16 09:30 10/18/16 09:29 09/21/16 09:22 125 MLS/HR Pantoprazole Sodium 40 mg/ Dextrose 100 ml @ 20 mls/hr Q5H IV 09/18/16 10:30 10/18/16 10:29 09/21/16 09:21 20 MLS/HR Clindamycin Phosphate/Dextrose (Cleocin Iv/ Dextrose Add-[place] 50ML) 54 ml @ 100 mls/hr Q8@0400,1200,2000 IV 09/19/16 12:00 09/29/16 11:59 09/21/16 05:12 100 MLS/HR Objective Vital Signs Date Time Temp Pulse Resp B/P Pulse Ox O2 Delivery O2 Flow Rate FiO2 09/21/16 09:30 Room Air 09/21/16 08:39 36.5 102 16 100/65 96 Room Air 09/21/16 00:29 37.0 79 16 91/62 99 Room Air 09/21/16 00:00 Room Air 09/20/16 15:05 36.0 73 22 90/54 99 Room Air Physical Exam General Appearance: + pertinent finding (ill, anasaraca appearing, exoriations on elbows, alert, oriented to place. ) Respiratory/Chest: chest non-tender Cardiovascular: regular rate, rhythm Abdomen: normal bowel sounds, non tender, soft, + pertinent finding (lying in thick and chuncky brown stool on pad) Extremities: + pedal edema Laboratory Results Last 24 Hours Test 09/21/16 06:55 White Blood Count 7.67 K/uL Red Blood Count 2.79 M/uL Hemoglobin 8.8 g/dL Hematocrit 25.4 % Mean Corpuscular Volume 91.0 fL Mean Corpuscular Hemoglobin 31.5 pg Mean Corpuscular Hemoglobin Concent 34.6 g/dl Platelet Count 132 K/uL Mean Platelet Volume 10.0 fL Neutrophils (%) (Auto) 68.8 % Lymphocytes (%) (Auto) 8.7 % Monocytes (%) (Auto) 14.1 % Eosinophils (%) (Auto) 2.2 % Basophils (%) (Auto) 0.1 % Neutrophils # (Auto) 5.27 K/uL Lymphocytes # (Auto) 0.67 K/uL Monocytes # (Auto) 1.08 K/uL Eosinophils # (Auto) 0.17 K/uL Basophils # (Auto) 0.01 K/uL RDW Standard Deviation 48.2 fL RDW Coefficient of Variation 14.4 % Immature Granulocyte % (Auto) 6.1 % Immature Granulocyte # (Auto) 0.47 K/uL Toxic Granulation 2+ Sodium Level 136 mmol/L Potassium Level 3.1 mmol/L Chloride Level 106 mmol/L Carbon Dioxide Level 21 mmol/L Anion Gap 9.0 mmol/L Blood Urea Nitrogen 19 mg/dl Creatinine 0.89 mg/dl Est Creatinine Clear Calc Drug Dose 87.1 ml/min Estimated GFR () 104.0 Estimated GFR (Non- 89.7 BUN/Creatinine Ratio 20.8 Random Glucose 99 mg/dl Calcium Level 6.5 mg/dl Phosphorus Level 2.4 mg/dl Magnesium Level 0.8 mg/dl Assessment and Plan 66 year old male with c.diff, sepsis, APPLE , C4 fracture and elevated troponin. With report of melena heme + stools. Had rectal tube in place until this am, agree with discontinuing. Report of "black stools" but has brown semi-solid stool on my exam on the bed today- generous amount. Hb has declined, but 9.1,9.6,9.1,8.8 is trend over the last several days. Plan PPI drip-ok to continue Clears as tolerated and advance as needed Daily CBC monitor stools complete course of C.diff treatment with PO vanco Transfuse as needed Hold on EGD as H&H is stable-consider during inpt on Mon/Tu pending clinical status. He will need a colonoscopy at some point with hx of colon CA resection and no repeat - we will office this as an outpatient if he chooses to follow with [facility]. EGD/Colon as an outpatient if not done during admission
[2016-09-21 15:54] VITALS: BP 100/67; PULSE 67; TEMP 36.4; O2SAT 98
[2016-09-21 19:15] VITALS: BP 93/59; PULSE 52; TEMP 36.6; O2SAT 100
[2016-09-21 23:10] VITALS: BP 124/76; PULSE 76; TEMP 36.6; O2SAT 100
[2016-09-22] VITALS: O2SAT 100
[2016-09-22] MEDS: PANTOprazole INJ 40 MG in DEXTROSE 5% 100ML IV SCH ×2 (00:02→03:38)
[2016-09-22] MEDS: SODIUM CHLORIDE 0.45% 1000ML 1,000 ML IV SCH (00:03)
[2016-09-22] MEDS: CLINDAMYCIN IV 600 MG in DEXTROSE 5% ADD-VANTAGE 50ML 50 ML IV SCH (03:38)
[2016-09-22 06:49] LABS: MEAN CORPUSCULAR HEMOGLOBIN 31.3 pg (25-34); MEAN CORPUSCULAR HGB CONC 34.8 g/dl (32-36); MEAN PLATELET VOLUME 9.8 fL (7.4-10.4); PLATELET COUNT 140 K/uL (130-400); WHITE BLOOD COUNT 6.79 K/uL (4.8-10.8)
[2016-09-22 07:18] LABS: BUN/CREATININE RATIO 10.8 (10-20); CALCIUM 6.7 mg/dl (8.5-10.1); CREATININE 0.85 mg/dl (0.60-1.40); MAGNESIUM 1.1 mg/dl (1.8-2.4); PHOSPHORUS 2.2 mg/dl (2.5-4.9)
[2016-09-22] MEDS: PANTOprazole SOD 40 MG TAB PO SCH ×2 (08:00→21:19)
[2016-09-22] MEDS: POTASSIUM CHLORIDE 20 MEQ TABCR PO SCH ×2 (08:00→21:18)
[2016-09-22] MEDS: MAGNESIUM OXIDE 400 MG TAB PO SCH ×2 (08:00→21:18)
[2016-09-22 08:02] VITALS: BP 105/66; PULSE 86; TEMP 36.8; O2SAT 91
[2016-09-22 08:08] LABS: BASO % 0.1 %; BASO ABS # 0.01 K/uL (0-0.2); COMPLETE YES; DOHLE BODIES 2+; EOS % 2.9 %; IG% 1.9 %; LYMPH % 5.9 %; MONO % 7.8 %; NEUT % 81.4 %; TOXIC GRANULATION 3+
[2016-09-22 08:17] VITALS: BP 105/66; PULSE 86; TEMP 36.8; O2SAT 91
[2016-09-22] MEDS: RASPBERRY SYRUP 5 ML UDP PO SCH ×4 (09:44→21:20)
[2016-09-22] MEDS: CLINDAMYCIN HCL 150 MG CAP PO SCH ×3 (09:44→21:18)
[2016-09-22] MEDS: VANCOMYCIN HCL 125 MG/2.5ML SOLN PO SCH ×4 (09:45→21:23)
--- NOTE | 2016-09-22 14:47 | Progress Note ---
Subjective Date of Service: Sep 22, 2016. Subjective pt was acting out a bit on 09/22 pulling out iv and refusing to take meds, however the nurses convinced him to take po meds and all were changed to po Problem List Medical Problems: (1) Altered mental status Status: Acute (2) ARF (acute renal failure) Status: Acute (3) C4 cervical fracture Status: Acute (4) Cellulitis of right elbow Status: Acute (5) Elevated troponin Status: Acute (6) GI bleeding Status: Acute (7) Hypothermia Status: Acute (8) Multiple fractures of ribs, left side, initial encounter for closed fracture Status: Acute Review of Systems Constitutional: + fatigue, + weakness, No chills, No fever Respiratory: No cough, No shortness of breath Cardiac: No chest pain, No edema Abdomen: No diarrhea, No nausea, No pain, No vomiting Neurologic: + memory loss, + weakness Psychiatric: + depression symptoms, No anxiety Objective Vital Signs Date Time Temp Pulse Resp B/P Pulse Ox O2 Delivery O2 Flow Rate FiO2 09/22/16 08:17 36.8 86 18 105/66 91 Room Air 09/22/16 08:00 Room Air 09/22/16 00:00 100 Room Air 09/21/16 23:10 36.6 76 19 124/76 100 Room Air 09/21/16 19:15 36.6 52 16 93/59 100 Room Air 09/21/16 16:00 Room Air 09/21/16 15:54 36.4 67 18 100/67 98 Room Air Physical Exam General Appearance: + mild distress, + thin Neck: supple, no JVD Respiratory/Chest: chest non-tender, lungs clear Cardiovascular: regular rate, rhythm, + systolic murmur Abdomen: normal bowel sounds, soft, + tenderness Extremities: no pedal edema, no calf tenderness Neurologic/Psychiatric: alert, oriented x 3 Laboratory Results Last 24 Hours Test 09/22/16 06:15 White Blood Count 6.79 K/uL Red Blood Count 3.00 M/uL Hemoglobin 9.4 g/dL Hematocrit 27.0 % Mean Corpuscular Volume 90.0 fL Mean Corpuscular Hemoglobin 31.3 pg Mean Corpuscular Hemoglobin Concent 34.8 g/dl Platelet Count 140 K/uL Mean Platelet Volume 9.8 fL Neutrophils (%) (Auto) 81.4 % Lymphocytes (%) (Auto) 5.9 % Monocytes (%) (Auto) 7.8 % Eosinophils (%) (Auto) 2.9 % Basophils (%) (Auto) 0.1 % Neutrophils # (Auto) 5.52 K/uL Lymphocytes # (Auto) 0.40 K/uL Monocytes # (Auto) 0.53 K/uL Eosinophils # (Auto) 0.20 K/uL Basophils # (Auto) 0.01 K/uL RDW Standard Deviation 46.3 fL RDW Coefficient of Variation 14.0 % Immature Granulocyte % (Auto) 1.9 % Immature Granulocyte # (Auto) 0.13 K/uL Toxic Granulation 3+ Dohle Bodies 2+ Sodium Level 140 mmol/L Potassium Level 3.0 mmol/L Chloride Level 106 mmol/L Carbon Dioxide Level 22 mmol/L Anion Gap 12.0 mmol/L Blood Urea Nitrogen 9 mg/dl Creatinine 0.85 mg/dl Est Creatinine Clear Calc Drug Dose 91.2 ml/min Estimated GFR () 106.0 Estimated GFR (Non- 91.4 BUN/Creatinine Ratio 10.8 Random Glucose 85 mg/dl Calcium Level 6.7 mg/dl Phosphorus Level 2.2 mg/dl Magnesium Level 1.1 mg/dl Assessment and Plan 66 M initially unresponsive and covered in black stool. Sepsis likely secondary colitis per CT found to be c diff colitis. Cervical fracture and Rib fractures noted on the left. Acute renal failure the creatinine of 7.4. Labs, vital signs and cultures reviewed 09/22, hgb now stable, maybe acute blood loss and hemodilutional anemia, currently with brown stool, persistent low K and mag Sepsis, metabolic encephalopathy resolved, has acute c diff colitis, po vancomycin started 09/17 , did have 2/2 blood cultures and wound culture with MSSA clinda 09/19 GI bleed protonix 40 mg changed to po 09/20, as HGB has fallen 4 gms from admission Acute renal failure vgnckqyy-upoipinyxeignd-iztgxi, plus hypovolemic shock elevated trop multifactorial, poor perfusion with low blood pressure-likely secondary to renal fx, not suspecting acute coronary syndrome C4 endplate fx-appears stable-spine surgery feels it is stable, pt not using c collar Rib fx-8-11 on the LEFT. pain control DVT prevention is SCD - full code Biggest need is dispo placement for rehab
[2016-09-22 16:48] VITALS: BP_SYST 89; BP_SYST 93; BP_DIAS 59; BP_DIAS 62; PULSE 99; TEMP 37.2; O2SAT 98
[2016-09-23 00:24] VITALS: BP 106/64; PULSE 87; TEMP 37.5; O2SAT 98
[2016-09-23] MEDS: CLINDAMYCIN HCL 150 MG CAP PO SCH ×3 (06:01→21:03)
[2016-09-23 07:57] VITALS: BP 113/75; PULSE 94; TEMP 37.2; O2SAT 93
[2016-09-23] MEDS: VANCOMYCIN HCL 125 MG/2.5ML SOLN PO SCH ×4 (07:57→21:02)
[2016-09-23] MEDS: RASPBERRY SYRUP 5 ML UDP PO SCH ×4 (07:57→21:02)
[2016-09-23] MEDS: PANTOprazole SOD 40 MG TAB PO SCH ×2 (07:58→21:03)
[2016-09-23] MEDS: MAGNESIUM OXIDE 400 MG TAB PO SCH ×2 (07:58→21:03)
[2016-09-23] MEDS: POTASSIUM CHLORIDE 20 MEQ TABCR PO SCH ×2 (07:58→21:04)
[2016-09-23 09:09] LABS: HEMATOCRIT 27.4 % (42-52); MEAN CELL VOLUME 90.4 fL (80-100); MEAN CORPUSCULAR HGB CONC 34.3 g/dl (32-36); MEAN PLATELET VOLUME 9.2 fL (7.4-10.4); PLATELET COUNT 181 K/uL (130-400); RED BLOOD COUNT 3.03 M/uL (4.7-6.1); WHITE BLOOD COUNT 5.33 K/uL (4.8-10.8)
[2016-09-23 10:05] LABS: CREATININE 0.77 mg/dl (0.60-1.40)
[2016-09-23 10:06] LABS: BUN/CREATININE RATIO 9.4 (10-20); CALCIUM 6.6 mg/dl (8.5-10.1); MAGNESIUM 0.9 mg/dl (1.8-2.4); POTASSIUM 3.1 mmol/L (3.5-5.1)
[2016-09-23 11:43] VITALS: BP 125/79; PULSE 96; O2SAT 100
[2016-09-23 11:53] VITALS: BP 129/79; PULSE 90; O2SAT 99
--- NOTE | 2016-09-23 12:11 | Gastroenterology Progress Note ---
Progress Note Date of Service: Sep 23, 2016 Subjective Pt evaluation today including: conversation w/ patient, physical exam, lab review Mr. Quiroz was seen and examined this morning. He is clinically doing much better. He is onday 6 of PO vanco for c.diff treatment. His stools are semi- formed/formed. He is denying any abdominal complaints. He feels otherwise well. He would like to get EGD/Colonoscopy done prior to discharge if he is able - he will not be able to follow up as an outpatient or get any procedures done because of transportation issues. Review of Systems Constitutional: No chills, No fever Respiratory: No cough, No shortness of breath Cardiac: No chest pain, No edema Abdomen: No constipation, No diarrhea, No nausea, No pain, No vomiting Medications Current Inpatient Medications Medications (Trade) Dose Ordered Sig/Miranda Route Start Time Stop Time Status Last Admin Dose Admin Acetaminophen (Tylenol Tab) 650 mg Q4H PRN PO 09/17/16 14:45 10/17/16 14:44 09/21/16 16:49 650 MG Ondansetron HCl (Zofran Inj) 4 mg Q6H PRN IV 09/17/16 14:45 10/17/16 14:44 Vancomycin HCl (Vancomycin Oral Soln) 125 mg QID PO 09/18/16 09:00 10/02/16 08:59 09/23/16 11:16 125 MG Raspberry (Raspberry Syrup 5ml Cup) 5 ml QID PO 09/18/16 09:00 10/02/16 08:59 09/23/16 11:16 5 ML Pantoprazole Sodium (Protonix Tab) 40 mg BID PO 09/22/16 08:00 10/22/16 07:59 09/23/16 07:58 40 MG Clindamycin HCl (Cleocin Cap) 300 mg Q8 PO 09/22/16 08:00 09/29/16 23:59 09/23/16 07:58 300 MG Magnesium Oxide (Mag-Ox Tab) 400 mg BID PO 09/22/16 08:00 10/22/16 07:59 09/23/16 07:58 400 MG Potassium Chloride (Klor-Con Tab) 20 meq BID PO 09/22/16 08:00 10/22/16 07:59 09/23/16 07:58 20 MEQ Objective Vital Signs Date Time Temp Pulse Resp B/P Pulse Ox O2 Delivery O2 Flow Rate FiO2 09/23/16 11:43 96 20 125/79 100 Room Air 09/23/16 08:00 Room Air 09/23/16 07:57 37.2 94 18 113/75 93 09/23/16 00:24 37.5 87 18 106/64 98 Room Air 09/23/16 00:00 Room Air 09/22/16 16:48 37.2 99 20 89/62 98 Room Air 93/59 09/22/16 16:00 Room Air Physical Exam General Appearance: no apparent distress Eyes: PERRL ENT: hearing grossly normal Neck: supple Respiratory/Chest: normal breath sounds, no respiratory distress, no accessory muscle use Cardiovascular: regular rate, rhythm, no gallop, no JVD Abdomen: normal bowel sounds, non tender, soft, no organomegaly, no pulsatile mass Neurologic/Psych: alert, normal mood/affect, oriented x 3 Skin: normal color Laboratory Results Last 24 Hours Test 09/23/16 08:57 White Blood Count 5.33 K/uL Red Blood Count 3.03 M/uL Hemoglobin 9.4 g/dL Hematocrit 27.4 % Mean Corpuscular Volume 90.4 fL Mean Corpuscular Hemoglobin 31.0 pg Mean Corpuscular Hemoglobin Concent 34.3 g/dl RDW Standard Deviation 47.5 fL RDW Coefficient of Variation 14.3 % Platelet Count 181 K/uL Mean Platelet Volume 9.2 fL Sodium Level 138 mmol/L Potassium Level 3.1 mmol/L Chloride Level 104 mmol/L Carbon Dioxide Level 23 mmol/L Anion Gap 11.0 mmol/L Blood Urea Nitrogen 7 mg/dl Creatinine 0.77 mg/dl Est Creatinine Clear Calc Drug Dose 100.6 ml/min Estimated GFR () 110.4 Estimated GFR (Non- 95.2 BUN/Creatinine Ratio 9.4 Random Glucose 94 mg/dl Calcium Level 6.6 mg/dl Magnesium Level 0.9 mg/dl Assessment and Plan Patient is a 66 year old male with c.diff, sepsis, APPLE (appears to be responding to fluids), C4 fracture and elevated troponin. There was report of melena prior to arrival and heme + stools. VSS and HGB have been stable. Differentials include upper GI bleed - esophageal varices, gastritis, esophagitis, PUD, malignancy etc Plan NPO after midnight EGD Colon tomorrow 20 mg dulcolax, 119 gm miralax at 1700 119 gm miralax at 2100 PPI drip Clears as tolerated today trend H&H monitor stools complete course of C.diff treatment with PO vanco Transfuse as needed I have seen and evaluated the patient. He states he would be unable to obtain any upper endoscopy or colonoscopy given his current social circumstances. Given this and his prior history of colon cancer we can proceed with upper endoscopy and colonoscopy during the patient's hospital admission if safe from his other medical issues. Plan EGD and colonoscopy scheduled for Friday. Please call with any questions or concerns
[2016-09-23 16:02] VITALS: O2SAT 99
[2016-09-23] MEDS ORDERED: BISACODYL 5 MG TABEC PO SCH (17:00)
[2016-09-23] MEDS ORDERED: POLYETHYLENE (MIRALAX) 17 GM PACK PO SCH ×2 (17:00→21:00)
--- NOTE | 2016-09-23 17:21 | Family Medicine Progress Note ---
Progress Note Date of Service Sep 23, 2016. Subjective Pt evaluation today including: conversation w/ patient, physical exam, chart review, lab review Pain: denies pain Voiding: no voiding problems 66 y/o M admitted after he was found unresponsive and covered in black stool on 09/17. Was also found to have C4 fracture and a rib fracture with a elbow wound and C. diff was also positive doing better. denies any abdominal pain, diarrhea is better now and stool is more formed. denies any BRBPR, dark stool, hematemesis Constitutional: No chills, No fever Eyes: No worsening of vision ENT: No hearing loss Respiratory: No cough, No sputum Cardiovascular: No chest pain Abdomen: No GI bleeding, No nausea, No pain, No vomiting Musculoskeletal: No joint pain Male : No dysuria Medications Current Inpatient Medications Medications (Trade) Dose Ordered Sig/Miranda Route Start Time Stop Time Status Last Admin Dose Admin Acetaminophen (Tylenol Tab) 650 mg Q4H PRN PO 09/17/16 14:45 10/17/16 14:44 09/21/16 16:49 650 MG Ondansetron HCl (Zofran Inj) 4 mg Q6H PRN IV 09/17/16 14:45 10/17/16 14:44 Vancomycin HCl (Vancomycin Oral Soln) 125 mg QID PO 09/18/16 09:00 10/02/16 08:59 09/23/16 16:57 125 MG Raspberry (Raspberry Syrup 5ml Cup) 5 ml QID PO 09/18/16 09:00 10/02/16 08:59 09/23/16 16:58 5 ML Pantoprazole Sodium (Protonix Tab) 40 mg BID PO 09/22/16 08:00 10/22/16 07:59 09/23/16 07:58 40 MG Clindamycin HCl (Cleocin Cap) 300 mg Q8 PO 09/22/16 08:00 09/29/16 23:59 09/23/16 07:58 300 MG Magnesium Oxide (Mag-Ox Tab) 400 mg BID PO 09/22/16 08:00 10/22/16 07:59 09/23/16 07:58 400 MG Potassium Chloride (Klor-Con Tab) 20 meq BID PO 09/22/16 08:00 10/22/16 07:59 09/23/16 07:58 20 MEQ Polyethylene (Miralax Powder Packet) 119 gm TODAY@2100 PO 09/23/16 21:00 09/23/16 21:01 Objective Vital Signs Date Time Temp Pulse Resp B/P Pulse Ox O2 Delivery O2 Flow Rate FiO2 09/23/16 11:53 90 99 09/23/16 11:43 96 20 125/79 100 Room Air 09/23/16 08:00 Room Air 09/23/16 07:57 37.2 94 18 113/75 93 09/23/16 00:24 37.5 87 18 106/64 98 Room Air 09/23/16 00:00 Room Air Physical Exam General Appearance: WD/WN, no apparent distress Eyes: normal inspection ENT: normal ENT inspection, hearing grossly normal Neck: supple Respiratory/Chest: chest non-tender, lungs clear, normal breath sounds Cardiovascular: regular rate, rhythm, no edema Abdomen: normal bowel sounds, non tender, soft Extremities: + pertinent finding (right elbow wound covered in dressing) Skin: + pertinent finding (multiple scabs on extremities) Laboratory Results 09/23/16 08:57 09/23/16 08:57 Test 09/23/16 08:57 Red Blood Count 3.03 M/uL (4.7-6.1) Mean Corpuscular Volume 90.4 fL (80-100) Mean Corpuscular Hemoglobin 31.0 pg (25-34) Mean Corpuscular Hemoglobin Concent 34.3 g/dl (32-36) RDW Standard Deviation 47.5 fL (36.4-46.3) RDW Coefficient of Variation 14.3 % (11.5-14.5) Mean Platelet Volume 9.2 fL (7.4-10.4) Anion Gap 11.0 mmol/L (3-11) Est Creatinine Clear Calc Drug Dose 100.6 ml/min Estimated GFR () 110.4 Estimated GFR (Non- 95.2 BUN/Creatinine Ratio 9.4 (10-20) Calcium Level 6.6 mg/dl (8.5-10.1) Magnesium Level 0.9 mg/dl (1.8-2.4) Assessment and Plan Acute C.diff colitis: - PO vancomycin day 6 , started on 09/17 MSSA Bacteremia with positive wound culture from elbow - BCX2 positive for MSSA - Clindamycin 300 mg PO q8h started on 09/19 GI bleed: - Hgb at 9.4, on admission was 12.1 - Monitor H&H - PO Protonix - EGD and Colonoscopy planned for tomorrow - NPO after midnight APPLE -- now resolved - Cr at admission 7.4, today at 0.7 Electrolytes: - Hypokalemia: K at 3.1 Klor-con 20 meq BID Hypomagnesemia: Mg at 0.9 400 mg BID Elevated troponin- sec to demand due to poor perfusion, shock, poor renal function C4 endplate fx -appears stable Left Rib fx-03-07 - stable DVT prophylaxis: SCDS Full code Resident Physician Supervision Note: I was present with Dr. Nino during the history and exam. I discussed the case with the resident and agree with the findings and plan as documented in the note. Any exceptions or clarifications are listed here: EGD/colonoscopy planned for tomorrow. Patient was without complaints this afternoon but has little recall/insight into his condition or the circumstances surrounding his hospitalization. Will discuss with case management regarding placement. Documented By: Armando Marsh
[2016-09-23 23:53] VITALS: BP 92/65; PULSE 100; TEMP 36.8; O2SAT 99
[2016-09-24] MEDS: CLINDAMYCIN HCL 150 MG CAP PO SCH (05:58)
[2016-09-24 07:30] LABS: HEMATOCRIT 26.7 % (42-52); MEAN CELL VOLUME 91.4 fL (80-100); MEAN CORPUSCULAR HEMOGLOBIN 31.5 pg (25-34); MEAN CORPUSCULAR HGB CONC 34.5 g/dl (32-36); MEAN PLATELET VOLUME 9.7 fL (7.4-10.4); PLATELET COUNT 209 K/uL (130-400); RED BLOOD COUNT 2.92 M/uL (4.7-6.1); WHITE BLOOD COUNT 4.29 K/uL (4.8-10.8)
[2016-09-24] MEDS: RASPBERRY SYRUP 5 ML UDP PO SCH (08:00)
[2016-09-24] MEDS: POTASSIUM CHLORIDE 20 MEQ TABCR PO SCH ×2 (08:00→22:12)
[2016-09-24] MEDS: MAGNESIUM OXIDE 400 MG TAB PO SCH ×2 (08:00→22:12)
[2016-09-24] MEDS: VANCOMYCIN HCL 125 MG/2.5ML SOLN PO SCH (08:00)
[2016-09-24 08:15] LABS: BUN/CREATININE RATIO 9.7 (10-20); CALCIUM 6.5 mg/dl (8.5-10.1); CREATININE 0.69 mg/dl (0.60-1.40); MAGNESIUM 0.9 mg/dl (1.8-2.4)
[2016-09-24 08:38] VITALS: BP 100/70; PULSE 77; TEMP 36.3; O2SAT 99
[2016-09-24] MEDS ORDERED: LIDOCAINE HCL 2% 2 ML VIAL (20MG/ML) ONE (11:09)
[2016-09-24] MEDS ORDERED: ETOMIDATE 2 MG/ML 20 ML VIAL IV ONE (11:09)
[2016-09-24] MEDS ORDERED: PROPOFOL IV EMULSION 10 MG/ML 20 ML VIAL IV ONE (11:09)
[2016-09-24 11:14] VITALS: BP 100/70; PULSE 77; TEMP 36.3; O2SAT 99
[2016-09-24] MEDS ORDERED: PHENYLEPHRINE HCL INJ 10 MG/ML VIAL ONE (12:34)
--- NOTE | 2016-09-24 12:51 | GI REPORT ---
Procedure Date: 09/24/2016 11:48 AM Procedure: Upper GI endoscopy Indications: Melena Medicines: Monitored Anesthesia Care Complications: No immediate complications. Estimated blood loss: Minimal. Estimated Blood Loss: Estimated blood loss was minimal. Procedure: Pre-Anesthesia Assessment: - Prior to the procedure, a History and Physical was performed, and patient medications, allergies and sensitivities were reviewed. The patient's tolerance of previous anesthesia was reviewed. - The risks and benefits of the procedure and the sedation options and risks were discussed with the patient. All questions were answered and informed consent was obtained. - Patient identification and proposed procedure were verified prior to the procedure by the physician, the nurse and the senior php software developer. The procedure was verified in the procedure room. - Pre-procedure physical examination revealed no contraindications to sedation. - ASA Grade Assessment: III - A patient with severe systemic disease. - After reviewing the risks and benefits, the patient was deemed in satisfactory condition to undergo the procedure. - The anesthesia plan was to use monitored anesthesia care (MAC). - Immediately prior to administration of medications, the patient was re-assessed for adequacy to receive sedatives. - The heart rate, respiratory rate, oxygen saturations, blood pressure, adequacy of pulmonary ventilation, and response to care were monitored throughout the procedure. - The physical status of the patient was re-assessed after the procedure. After obtaining informed consent, the endoscope was passed under direct vision. Throughout the procedure, the patient's blood pressure, pulse, and oxygen saturations were monitored continuously. The scope was introduced through the mouth, and advanced to the second part of duodenum. The upper GI endoscopy was accomplished without difficulty. The patient tolerated the procedure well. Findings: A noldular appeaing esophagitis with no bleeding was found in the entire esophagus. Biopsies were taken from the upper esophagus with a cold forceps for histology. Estimated blood loss was minimal. One moderate nodular appearing stenosis was found 35 cm from the incisors. And was traversed. Biopsies were taken with a cold forceps for histology. Estimated blood loss was minimal. A medium-sized hiatus hernia was found. The proximal extent of the gastric folds (end of tubular esophagus) was 40 cm from the incisors. The hiatal narrowing was 35 cm from the incisors. The Z-line was 20 cm from the incisors. Diffuse moderate inflammation characterized by erythema and granularity was found in the entire examined stomach. Biopsies were taken with a cold forceps for histology. Estimated blood loss was minimal. The examined duodenum was normal. Impression: - Reflux esophagitis. Biopsied. - Esophageal stenosis. Biopsied. - Medium-sized hiatus hernia. - Gastritis. Biopsied. - Normal examined duodenum. Recommendation: - Perform a colonoscopy today. - Use Protonix (pantoprazole) 40 mg PO BID for 6 weeks. - If found to have Barretts or Adenocarcinoma patient will likely need further evaluation. Jose Blackburn D.O. Jose Blackburn, DO 09/24/2016 12:50:45 PM This report has been signed electronically. Note Initiated On: 09/24/2016 11:48 AM I attest to the content of the Intraoperative Record and orders documented therein, exceptions below
--- NOTE | 2016-09-24 12:54 | GI REPORT ---
Procedure Date: 09/24/2016 12:06 PM Procedure: Colonoscopy Indications: High risk colon cancer surveillance: Personal history of colon cancer Medicines: Monitored Anesthesia Care Complications: No immediate complications. Estimated blood loss: Minimal. Estimated Blood Loss: Estimated blood loss was minimal. Procedure: Pre-Anesthesia Assessment: - Prior to the procedure, a History and Physical was performed, and patient medications, allergies and sensitivities were reviewed. The patient's tolerance of previous anesthesia was reviewed. - The risks and benefits of the procedure and the sedation options and risks were discussed with the patient. All questions were answered and informed consent was obtained. - Patient identification and proposed procedure were verified prior to the procedure by the physician, the nurse and the wind operations manager. The procedure was verified in the procedure room. - Pre-procedure physical examination revealed no contraindications to sedation. - ASA Grade Assessment: III - A patient with severe systemic disease. - After reviewing the risks and benefits, the patient was deemed in satisfactory condition to undergo the procedure. - The anesthesia plan was to use monitored anesthesia care (MAC). - Immediately prior to administration of medications, the patient was re-assessed for adequacy to receive sedatives. - The heart rate, respiratory rate, oxygen saturations, blood pressure, adequacy of pulmonary ventilation, and response to care were monitored throughout the procedure. - The physical status of the patient was re-assessed after the procedure. After I obtained informed consent, the scope was passed under direct vision. Throughout the procedure, the patient's blood pressure, pulse, and oxygen saturations were monitored continuously. The Scope was introduced through the anus and advanced to the cecum, identified by appendiceal orifice and ileocecal valve. The colonoscopy was performed without difficulty. The patient tolerated the procedure well. The quality of the bowel preparation was poor. Findings: The perianal and digital rectal examinations were normal. Pertinent negatives include normal sphincter tone. Patchy moderate inflammation characterized by congestion (edema), erythema, granularity and shallow ulcerations was found in the entire colon. Biopsies were taken with a cold forceps for histology. Estimated blood loss was minimal. The exam was otherwise without abnormality. Impression: - Preparation of the colon was poor. - Patchy moderate inflammation was found in the entire examined colon consistent with infectious colitis (recent diagnosis of C diff infection). Biopsied. - The examination was otherwise normal. Recommendation: - Return patient to [facility] for [facility] care. - Advance diet as tolerated today. - Await pathology results. - Repeat colonoscopy in 6 months because the bowel preparation was suboptimal. Jose Blackburn D.O. Jose Blackburn, DO 09/24/2016 12:53:31 PM This report has been signed electronically. Note Initiated On: 09/24/2016 12:06 PM I attest to the content of the Intraoperative Record and orders documented therein, exceptions below
[2016-09-24] MEDS: MAGNESIUM SULFATE 1GM / D5W 1 GM in PREMIXED IN D5W 100 ML IV SCH ×2 (14:04→15:46)
[2016-09-24] MEDS: PANTOprazole SOD 40 MG TAB PO SCH ×2 (14:09→22:11)
[2016-09-24] MEDS: METRONIDAZOLE 500 MG TAB PO SCH ×2 (14:09→22:11)
[2016-09-24] MEDS: DICLOXACILLIN SODIUM 250 MG CAP PO SCH ×3 (14:09→22:11)
[2016-09-24 15:16] VITALS: BP 92/61; PULSE 90; TEMP 36.3
--- NOTE | 2016-09-24 15:41 | Anesthesiology Progress Note ---
Anesthesia Post Op Note Date & Time Sep 24, 2016 at 15:41 Vital Signs Pain Intensity: 0 Vital Signs Past 12 Hours Date Time Temp Pulse Resp B/P Pulse Ox O2 Delivery O2 Flow Rate FiO2 09/24/16 15:16 36.3 90 17 92/61 09/24/16 13:05 82 18 100/68 97 Room Air 09/24/16 12:50 80 18 97/63 98 Room Air 09/24/16 12:36 75 18 97/61 97 Mask 10 09/24/16 12:33 75 20 96/69 96 Mask 10 09/24/16 11:26 36.7 96 20 94/60 97 Room Air 09/24/16 11:14 36.3 77 12 100/70 99 Room Air 15.0 09/24/16 09:13 Room Air 09/24/16 08:38 36.3 77 12 100/70 99 Room Air 09/24/16 04:00 Room Air Notes Mental Status: alert / awake / arousable, participated in evaluation Pt Amnestic to Procedure: Yes Nausea / Vomiting: adequately controlled Pain: adequately controlled Airway Patency, RR, SpO2: stable & adequate BP & HR: stable & adequate Hydration State: stable & adequate Anesthetic Complications: no major complications apparent
[2016-09-24 16:22] VITALS: O2SAT 99
[2016-09-24] MEDS ORDERED: POTASSIUM CHLORIDE 20 MEQ TABCR PO ONE (17:00)
--- NOTE | 2016-09-24 17:30 | Family Medicine Progress Note ---
Progress Note Date of Service Sep 24, 2016. Subjective Pt evaluation today including: conversation w/ patient, physical exam, chart review, lab review PO Intake: was NPO for EGD and colonoscopy Doing. has been NPO since midnight for colonoscopy and EGD . stool is more formed now. denies abdominal pain, Nausea or vomiting Constitutional: No chills, No fever ENT: No hearing loss Respiratory: No cough, No sputum Cardiovascular: No chest pain Abdomen: No GI bleeding, No nausea, No pain, No vomiting Male : No dysuria Neurologic: No memory loss Medications Current Inpatient Medications Medications (Trade) Dose Ordered Sig/Miranda Route Start Time Stop Time Status Last Admin Dose Admin Acetaminophen (Tylenol Tab) 650 mg Q4H PRN PO 09/17/16 14:45 10/17/16 14:44 09/21/16 16:49 650 MG Ondansetron HCl (Zofran Inj) 4 mg Q6H PRN IV 09/17/16 14:45 10/17/16 14:44 Pantoprazole Sodium (Protonix Tab) 40 mg BID PO 09/22/16 08:00 10/22/16 07:59 09/24/16 14:09 40 MG Magnesium Oxide (Mag-Ox Tab) 400 mg BID PO 09/22/16 08:00 10/22/16 07:59 09/23/16 21:03 400 MG Potassium Chloride (Klor-Con Tab) 20 meq BID PO 09/22/16 08:00 10/22/16 07:59 09/23/16 21:04 20 MEQ Dicloxacillin Sodium (Dynapen Cap) 250 mg QID PO 09/24/16 12:00 10/08/16 11:59 09/24/16 15:46 250 MG Metronidazole (Flagyl Tab) 500 mg Q8 PO 09/24/16 14:00 10/08/16 13:59 09/24/16 14:09 500 MG Objective Vital Signs Date Time Temp Pulse Resp B/P Pulse Ox O2 Delivery O2 Flow Rate FiO2 09/24/16 15:16 36.3 90 17 92/61 09/24/16 13:05 82 18 100/68 97 Room Air 09/24/16 12:50 80 18 97/63 98 Room Air 09/24/16 12:36 75 18 97/61 97 Mask 10 09/24/16 12:33 75 20 96/69 96 Mask 10 09/24/16 11:26 36.7 96 20 94/60 97 Room Air 09/24/16 11:14 36.3 77 12 100/70 99 Room Air 15.0 09/24/16 09:13 Room Air 09/24/16 08:38 36.3 77 12 100/70 99 Room Air 09/24/16 04:00 Room Air 09/23/16 23:53 36.8 100 20 92/65 99 Room Air Physical Exam General Appearance: WD/WN, no apparent distress Eyes: normal inspection ENT: normal ENT inspection, hearing grossly normal Neck: supple Respiratory/Chest: chest non-tender, lungs clear, normal breath sounds Cardiovascular: regular rate, rhythm, no edema Abdomen: normal bowel sounds, non tender, soft Extremities: normal range of motion, non-tender Neurologic/Psychiatric: alert, normal mood/affect, oriented x 3 Skin: normal color Laboratory Results Last 24 Hours Test 09/24/16 07:00 White Blood Count 4.29 K/uL Red Blood Count 2.92 M/uL Hemoglobin 9.2 g/dL Hematocrit 26.7 % Mean Corpuscular Volume 91.4 fL Mean Corpuscular Hemoglobin 31.5 pg Mean Corpuscular Hemoglobin Concent 34.5 g/dl RDW Standard Deviation 48.0 fL RDW Coefficient of Variation 14.2 % Platelet Count 209 K/uL Mean Platelet Volume 9.7 fL Sodium Level 140 mmol/L Potassium Level 3.0 mmol/L Chloride Level 106 mmol/L Carbon Dioxide Level 21 mmol/L Anion Gap 13.0 mmol/L Blood Urea Nitrogen 7 mg/dl Creatinine 0.69 mg/dl Est Creatinine Clear Calc Drug Dose 112.3 ml/min Estimated GFR () 115.5 Estimated GFR (Non- 99.6 BUN/Creatinine Ratio 9.7 Random Glucose 88 mg/dl Calcium Level 6.5 mg/dl Magnesium Level 0.9 mg/dl Assessment and Plan Acute C.diff colitis: - PO vancomycin day 7 , started on 09/17 MSSA Bacteremia with positive wound culture from elbow - BCX2 positive for MSSA - switched from clindamycin to dicloxacillin 250 mg QID and Flagyl 500 mg q8h GI bleed: - Hgb at 9.2, on admission was 12.1 - Monitor H&H - PO Protonix 40 mg BID - EGD and Colonoscopy done today: Per EGD report :Reflux esophagitis. Biopsied. - Esophageal stenosis. Biopsied. - Medium-sized hiatus hernia. - Gastritis. Biopsied. - Normal examined duodenum. Recommendation: - Use Protonix (pantoprazole) 40 mg PO BID for 6 weeks. - If found to have Barretts or Adenocarcinoma patient will likely need further evaluation. Colonoscopy: - Patchy moderate inflammation was found in the entire examined colon consistent with infectious colitis (recent diagnosis of C diff infection). Biopsied. - The examination was otherwise normal. Recommendation: - Advance diet as tolerated today. - Await pathology results. - Repeat colonoscopy in 6 months because the bowel preparation was suboptimal. APPLE -- now resolved - Cr at admission 7.4, today at 0.7 Electrolytes: - Hypokalemia: K at 3.1 Klor-con 20 meq BID Hypomagnesemia: Mg at 0.9, also received 1g MgSo4 X2 400 mg BID Elevated troponin- sec to demand due to poor perfusion, shock, poor renal function C4 endplate fx -appears stable Left Rib fx-8- - stable DVT prophylaxis: SCDS Deconditioning: PT/OT Full code Disposition: He lives alone and is estranged from his family. will need inpatient rehab , CM following Resident Physician Supervision Note: I interviewed and examined the patient. Discussed with Dr. Nino and agree with findings and plan as documented in the note. Any exceptions or clarifications are listed here: I saw the patient this afternoon after he completed the EGD and colonoscopy. Results as noted above. I saw the patient, he was eating lunch and denied complaints. Overall his sensorium seemed improved, although he still could not explain to me whether his difficulty with ambulation and memory was more progressive issue or an acute issue. Agree with the left leg replacement as noted above. After discussion with clinical pharmacist, agree with above referenced antibiotic changes. Discussed with case management regarding need for rehabilitation placement. Documented By: Armando Marsh
[2016-09-25] VITALS (7 sets, daily range): BP systolic 90–97; BP diastolic 51–63; PULSE 81–118; TEMP 36.8–37.5; O2SAT 95–99
[2016-09-25] MEDS: METRONIDAZOLE 500 MG TAB PO SCH ×3 (06:37→21:44)
[2016-09-25 07:05] LABS: HEMATOCRIT 25.1 % (42-52); MEAN CORPUSCULAR HEMOGLOBIN 31.2 pg (25-34); MEAN CORPUSCULAR HGB CONC 34.7 g/dl (32-36); MEAN PLATELET VOLUME 9.5 fL (7.4-10.4); PLATELET COUNT 199 K/uL (130-400); RED BLOOD COUNT 2.79 M/uL (4.7-6.1)
[2016-09-25 07:39] LABS: BUN/CREATININE RATIO 6.1 (10-20); CALCIUM 6.5 mg/dl (8.5-10.1); CREATININE 0.84 mg/dl (0.60-1.40); MAGNESIUM 1.3 mg/dl (1.8-2.4); POTASSIUM 2.8 mmol/L (3.5-5.1)
[2016-09-25 07:41] LABS: PHOSPHORUS 2.3 mg/dl (2.5-4.9)
[2016-09-25] MEDS ORDERED: POTASSIUM PHOS 3 MMOL/1 ML INFUSION IV ONE (08:30)
[2016-09-25] MEDS ORDERED: POTASSIUM PHOSPHATE INJ 15 MMOL in SODIUM CHLORIDE 0.9% 250ML 250 ML IV SCH (09:00)
[2016-09-25] MEDS: PANTOprazole SOD 40 MG TAB PO SCH ×2 (09:41→21:44)
[2016-09-25] MEDS: MAGNESIUM OXIDE 400 MG TAB PO SCH ×2 (09:41→21:43)
[2016-09-25] MEDS: POTASSIUM CHLORIDE 20 MEQ TABCR PO SCH ×2 (09:41→21:44)
[2016-09-25] MEDS: DICLOXACILLIN SODIUM 250 MG CAP PO SCH ×4 (09:41→21:43)
--- NOTE | 2016-09-25 11:48 | DIAGNOSTIC IMAGING REPORT ---
[facility]UB CLINICAL HISTORY: abdominal pain. S/p colonoscopy postprocedural pain COMPARISON STUDY: No previous studies for comparison. FINDINGS: The soft tissues, psoas shadows, renal outlines and intestinal gas pattern appear normal. There is no evidence for bowel obstruction. No abnormal abdominal calcifications are seen. IMPRESSION: Normal study. Electronically signed by: Noel Abrams M.D. 09/25/2016 11:47 AM Dictated Date/Time: 09/25/2016 11:47 AM
[2016-09-25] MEDS ORDERED: VANCOMYCIN HCL 125 MG/2.5ML SOLN PO ONE (15:36)
--- NOTE | 2016-09-25 15:45 | Gastroenterology Progress Note ---
Progress Note Date of Service: Sep 25, 2016 Subjective Pt evaluation today including: conversation w/ patient, physical exam, chart review, lab review, review of inpatient medication list Pt currently in bed, awake, alert, getting R elbow wound care done. He's feeling well, denies abd pain, n/v. Still having loose BMs. EGD/Colonoscopy path pending. Review of Systems Constitutional: No chills, No fever Abdomen: + diarrhea, No nausea, No pain, No vomiting Medications Current Inpatient Medications Medications (Trade) Dose Ordered Sig/Miranda Route Start Time Stop Time Status Last Admin Dose Admin Acetaminophen (Tylenol Tab) 650 mg Q4H PRN PO 09/17/16 14:45 10/17/16 14:44 09/21/16 16:49 650 MG Ondansetron HCl (Zofran Inj) 4 mg Q6H PRN IV 09/17/16 14:45 10/17/16 14:44 09/25/16 09:38 4 MG Pantoprazole Sodium (Protonix Tab) 40 mg BID PO 09/22/16 08:00 10/22/16 07:59 09/25/16 09:41 40 MG Magnesium Oxide (Mag-Ox Tab) 400 mg BID PO 09/22/16 08:00 10/22/16 07:59 09/25/16 09:41 400 MG Potassium Chloride (Klor-Con Tab) 20 meq BID PO 09/22/16 08:00 10/22/16 07:59 09/25/16 09:41 20 MEQ Dicloxacillin Sodium (Dynapen Cap) 250 mg QID PO 09/24/16 12:00 10/08/16 11:59 09/25/16 13:19 250 MG Metronidazole (Flagyl Tab) 500 mg Q8 PO 09/24/16 14:00 10/08/16 13:59 09/25/16 13:19 500 MG Objective Vital Signs Date Time Temp Pulse Resp B/P Pulse Ox O2 Delivery O2 Flow Rate FiO2 09/25/16 12:21 Room Air 09/25/16 07:06 37.0 99 19 95/61 95 Room Air 09/25/16 00:19 37.5 101 20 97/62 96 Room Air 09/25/16 00:15 99 Room Air 09/24/16 16:22 99 Room Air Physical Exam General Appearance: WD/WN, no apparent distress Eyes: normal inspection, PERRL, EOMI Respiratory/Chest: no respiratory distress, no accessory muscle use Neurologic/Psych: alert, normal mood/affect, oriented x 3 Skin: normal color, no jaundice, no rash Laboratory Results Last 24 Hours Test 09/25/16 06:30 White Blood Count 3.90 K/uL Red Blood Count 2.79 M/uL Hemoglobin 8.7 g/dL Hematocrit 25.1 % Mean Corpuscular Volume 90.0 fL Mean Corpuscular Hemoglobin 31.2 pg Mean Corpuscular Hemoglobin Concent 34.7 g/dl RDW Standard Deviation 47.5 fL RDW Coefficient of Variation 14.1 % Platelet Count 199 K/uL Mean Platelet Volume 9.5 fL Sodium Level 140 mmol/L Potassium Level 2.8 mmol/L Chloride Level 107 mmol/L Carbon Dioxide Level 19 mmol/L Anion Gap 14.0 mmol/L Blood Urea Nitrogen 5 mg/dl Creatinine 0.84 mg/dl Est Creatinine Clear Calc Drug Dose 92.3 ml/min Estimated GFR () 106.5 Estimated GFR (Non- 91.9 BUN/Creatinine Ratio 6.1 Random Glucose 123 mg/dl Calcium Level 6.5 mg/dl Phosphorus Level 2.3 mg/dl Magnesium Level 1.3 mg/dl Assessment and Plan Patient is a 66 year old male with hx of colon ca s/p sigmoid resection w symptoms of melena, heme positive stools. Found to be Cdiff positive, septic ( Staph aureus on elbow wound and blood cx), APPLE (resolved). EGD/Colonoscopy yesterday w inflammatory changes ? severe esophagitis vs Blanton's in esophagus ; colitis likely from Cdiff. Path pending. He's still having loose stools but frequency less, tolerating regular diet. Hgb stable around 8-9. - Continue Protonix 40mg BID - F/U bx results; May need to repeat Colonoscopy in 6 months time given inadequate prep during exam. - Would continue Vancomycin 125mg daily as long as he's on antibx therapy for sepsis to prevent Cdiff recurrence. - Monitor H/H and transfuse prn I ahve seen and evaluated the patient. EGD with inflammatory changes in most of the esophagus. Will plan on use of a PPI and a repeat examination in 6 to 9 months. Given the need for continued abx coverage we would suggest 1 time daily vancomyin (use for 2 weeks after completion of his other antibiotics.
[2016-09-25] MEDS ORDERED: MAGNESIUM SULFATE 1GM / D5W 1 GM in PREMIXED IN D5W 100 ML IV ONE (16:00)
--- NOTE | 2016-09-25 16:51 | Family Medicine Progress Note ---
Progress Note Date of Service Sep 25, 2016. Subjective Pt evaluation today including: conversation w/ patient, physical exam, chart review, lab review Pain: had some abdominal pain this morning PO Intake: good Voiding: no voiding problems had some abdominal pain this morning with nausea but no vomiting. stool is loose but is getting better. denies fevers/chills Constitutional: No chills, No fever Eyes: No worsening of vision ENT: No hearing loss Respiratory: No cough Cardiovascular: No chest pain, No orthopnea Abdomen: + nausea, + pain, No vomiting Musculoskeletal: No joint pain Male : No dysuria Psychiatric: No depression symptoms Medications Current Inpatient Medications Medications (Trade) Dose Ordered Sig/Miranda Route Start Time Stop Time Status Last Admin Dose Admin Acetaminophen (Tylenol Tab) 650 mg Q4H PRN PO 09/17/16 14:45 10/17/16 14:44 09/21/16 16:49 650 MG Ondansetron HCl (Zofran Inj) 4 mg Q6H PRN IV 09/17/16 14:45 10/17/16 14:44 09/25/16 09:38 4 MG Pantoprazole Sodium (Protonix Tab) 40 mg BID PO 09/22/16 08:00 10/22/16 07:59 09/25/16 09:41 40 MG Magnesium Oxide (Mag-Ox Tab) 400 mg BID PO 09/22/16 08:00 10/22/16 07:59 09/25/16 09:41 400 MG Potassium Chloride (Klor-Con Tab) 20 meq BID PO 09/22/16 08:00 10/22/16 07:59 09/25/16 09:41 20 MEQ Dicloxacillin Sodium (Dynapen Cap) 250 mg QID PO 09/24/16 12:00 10/08/16 11:59 09/25/16 13:19 250 MG Metronidazole 500 mg 500 mg Q8 PO 09/24/16 14:00 10/08/16 13:59 09/25/16 13:19 500 MG Magnesium Sulfate/ Prmx (Magnesium Sulfate/Premixed D5W) 100 ml @ 100 mls/hr ONE ONCE IV 09/25/16 16:00 09/25/16 16:59 Objective Vital Signs Date Time Temp Pulse Resp B/P Pulse Ox O2 Delivery O2 Flow Rate FiO2 09/25/16 16:05 36.8 82 16 90/51 98 Room Air 09/25/16 15:50 118 97 09/25/16 12:21 Room Air 09/25/16 07:06 37.0 99 19 95/61 95 Room Air 09/25/16 00:19 37.5 101 20 97/62 96 Room Air 09/25/16 00:15 99 Room Air Physical Exam General Appearance: WD/WN, no apparent distress Eyes: normal inspection ENT: normal ENT inspection, hearing grossly normal Neck: supple Respiratory/Chest: chest non-tender, lungs clear, normal breath sounds, no respiratory distress Cardiovascular: regular rate, rhythm Abdomen: normal bowel sounds, soft, + tenderness Extremities: normal range of motion, non-tender, + pertinent finding (right elbow wound covered in dressing) Neurologic/Psychiatric: alert, normal mood/affect, oriented x 3 Skin: + pertinent finding (multiple scabs) Laboratory Results 09/25/16 06:30 09/25/16 06:30 Test 09/25/16 06:30 Red Blood Count 2.79 M/uL (4.7-6.1) Mean Corpuscular Volume 90.0 fL (80-100) Mean Corpuscular Hemoglobin 31.2 pg (25-34) Mean Corpuscular Hemoglobin Concent 34.7 g/dl (32-36) RDW Standard Deviation 47.5 fL (36.4-46.3) RDW Coefficient of Variation 14.1 % (11.5-14.5) Mean Platelet Volume 9.5 fL (7.4-10.4) Anion Gap 14.0 mmol/L (3-11) Est Creatinine Clear Calc Drug Dose 92.3 ml/min Estimated GFR () 106.5 Estimated GFR (Non- 91.9 BUN/Creatinine Ratio 6.1 (10-20) Calcium Level 6.5 mg/dl (8.5-10.1) Phosphorus Level 2.3 mg/dl (2.5-4.9) Magnesium Level 1.3 mg/dl (1.8-2.4) Assessment and Plan had some abdominal pain this morning, KUB was done and was negative. Feels better now, had lunch. Acute C.diff colitis: - PO vancomycin day 8 , started on 09/17 MSSA Bacteremia with positive wound culture from elbow - BCX2 positive for MSSA - switched from clindamycin to dicloxacillin 250 mg QID and Flagyl 500 mg q8h GI bleed: - Hgb at 8.7, on admission was 12.1 - Monitor H&H - PO Protonix 40 mg BID - EGD and Colonoscopy done 09/24 Per EGD report :Reflux esophagitis. Biopsied. - Esophageal stenosis. Biopsied. - Medium-sized hiatus hernia. - Gastritis. Biopsied. - Normal examined duodenum. Recommendation: - Use Protonix (pantoprazole) 40 mg PO BID for 6 weeks. - If found to have Barretts or Adenocarcinoma patient will likely need further evaluation. Colonoscopy: - Patchy moderate inflammation was found in the entire examined colon consistent with infectious colitis (recent diagnosis of C diff infection). Biopsied. - The examination was otherwise normal. Re Recommendation: - Await pathology results. - Repeat colonoscopy in 6 months because the bowel preparation was suboptimal. APPLE -- now resolved - Cr at admission 7.4, today at 0.7 Electrolytes: - Hypokalemia: K at 2.8, phos at 2.3 Klor-con 20 meq BID kphos 15 mmol Hypomagnesemia: Mg at 1.2, also received 1g MgSo4 400 mg BID C4 endplate fx -appears stable Left Rib fx-8-11 - stable DVT prophylaxis: SCDS Deconditioning: PT/OT Full code Disposition: He lives alone and is estranged from his family. will need inpatient rehab , CM following Resident Physician Supervision Note: I was present with Dr. Nino during the history and exam. I discussed the case with the resident and agree with the findings and plan as documented in the note. Any exceptions or clarifications are listed here: The patient complained of some abdominal pain earlier in the day, upon our joint examination this afternoon he reports that this has completely resolved. He tolerated lunch without any difficulty and he denied any complaints of the time of our second visit. Overall, he seems much more alert and oriented then days previous. He is still considerably weak and would benefit from inpatient is physical rehabilitation. Upon exam his abdomen is soft and nontender. There is no masses appreciated. There is no rebound or guarding. We'll continue to work with social media marketing manager regarding placement. Documented By: Armando Marsh
[2016-09-26] MEDS: METRONIDAZOLE 500 MG TAB PO SCH ×3 (06:32→21:50)
[2016-09-26 07:03] LABS: HEMATOCRIT 24.7 % (42-52); MEAN CELL VOLUME 90.8 fL (80-100); MEAN CORPUSCULAR HEMOGLOBIN 31.3 pg (25-34); MEAN CORPUSCULAR HGB CONC 34.4 g/dl (32-36); MEAN PLATELET VOLUME 9.7 fL (7.4-10.4); PLATELET COUNT 205 K/uL (130-400); RED BLOOD COUNT 2.72 M/uL (4.7-6.1)
[2016-09-26 07:16] VITALS: BP 92/62; PULSE 83; TEMP 36.5; O2SAT 96
[2016-09-26 07:25] LABS: BUN/CREATININE RATIO 10.5 (10-20); CALCIUM 6.8 mg/dl (8.5-10.1); CREATININE 0.74 mg/dl (0.60-1.40); MAGNESIUM 1.1 mg/dl (1.8-2.4); PHOSPHORUS 2.4 mg/dl (2.5-4.9); POTASSIUM 3.3 mmol/L (3.5-5.1)
[2016-09-26] MEDS: DICLOXACILLIN SODIUM 250 MG CAP PO SCH ×4 (07:46→21:49)
[2016-09-26] MEDS: PANTOprazole SOD 40 MG TAB PO SCH ×2 (07:46→21:50)
[2016-09-26] MEDS: POTASSIUM CHLORIDE 20 MEQ TABCR PO SCH ×2 (07:46→21:49)
[2016-09-26] MEDS: MAGNESIUM OXIDE 400 MG TAB PO SCH ×2 (07:46→21:48)
[2016-09-26] MEDS ORDERED: VANCOMYCIN HCL 125 MG/2.5ML SOLN PO SCH (08:00)
[2016-09-26 09:10] LABS: BASO % 0.3 %; BASO ABS # 0.01 K/uL (0-0.2); COMPLETE YES; EOS % 6.9 %; IG% 0.6 %; LYMPH % 20.3 %; LYMPH ABS # 0.71 K/uL (1.2-3.4); MONO % 5.7 %; NEUT % 66.2 %; TOXIC GRANULATION 1+
[2016-09-26] MEDS ORDERED: MAGNESIUM SULFATE 1GM / D5W 1 GM in PREMIXED IN D5W 100 ML IV ONE ×2 (10:15→15:30)
--- NOTE | 2016-09-26 10:52 | Gastroenterology Progress Note ---
Progress Note Date of Service: Sep 26, 2016 Subjective Pt evaluation today including: conversation w/ patient, physical exam, chart review, lab review, review of inpatient medication list Pt still having loose stools, frequency slowed down. He denies any abd pain, n/ v. Tolerating regular diet well. Review of Systems Constitutional: No chills, No fever Respiratory: No cough, No shortness of breath Cardiac: No chest pain, No edema Abdomen: + diarrhea (improved), No nausea, No pain, No vomiting Medications Current Inpatient Medications Medications (Trade) Dose Ordered Sig/Miranda Route Start Time Stop Time Status Last Admin Dose Admin Acetaminophen (Tylenol Tab) 650 mg Q4H PRN PO 09/17/16 14:45 10/17/16 14:44 09/21/16 16:49 650 MG Ondansetron HCl (Zofran Inj) 4 mg Q6H PRN IV 09/17/16 14:45 10/17/16 14:44 09/25/16 09:38 4 MG Pantoprazole Sodium (Protonix Tab) 40 mg BID PO 09/22/16 08:00 10/22/16 07:59 09/26/16 07:46 40 MG Magnesium Oxide (Mag-Ox Tab) 400 mg BID PO 09/22/16 08:00 10/22/16 07:59 09/26/16 07:46 400 MG Potassium Chloride (Klor-Con Tab) 20 meq BID PO 09/22/16 08:00 10/22/16 07:59 09/26/16 07:46 20 MEQ Dicloxacillin Sodium (Dynapen Cap) 250 mg QID PO 09/24/16 12:00 10/08/16 11:59 09/26/16 07:46 250 MG Metronidazole 500 mg 500 mg Q8 PO 09/24/16 14:00 10/08/16 13:59 09/26/16 06:32 500 MG Magnesium Sulfate/ Prmx (Magnesium Sulfate/Premixed D5W) 100 ml @ 100 mls/hr NOW ONCE IV 09/26/16 10:15 09/26/16 11:14 Objective Vital Signs Date Time Temp Pulse Resp B/P Pulse Ox O2 Delivery O2 Flow Rate FiO2 09/26/16 09:54 Room Air 09/26/16 07:16 36.5 83 16 92/62 96 Room Air 09/26/16 01:08 Room Air 09/25/16 23:57 37.2 81 20 94/63 99 Room Air 09/25/16 16:10 99 Room Air 09/25/16 16:05 36.8 82 16 90/51 98 Room Air 09/25/16 15:50 118 97 09/25/16 12:21 Room Air Physical Exam General Appearance: WD/WN, no apparent distress Eyes: normal inspection, PERRL, EOMI Neck: supple, no JVD, trachea midline Respiratory/Chest: no respiratory distress, no accessory muscle use, + decreased breath sounds Cardiovascular: regular rate, rhythm, no gallop, no murmur Abdomen: normal bowel sounds, non tender, soft, + abnormal bowel sounds ( hypoactive) Extremities: normal inspection, no pedal edema, no calf tenderness Neurologic/Psych: alert, normal mood/affect, oriented x 3 Skin: normal color, no jaundice, no rash, + pertinent finding (R elbow wound w dressing in place. ) Laboratory Results Last 24 Hours Test 09/26/16 06:25 White Blood Count 3.50 K/uL Red Blood Count 2.72 M/uL Hemoglobin 8.5 g/dL Hematocrit 24.7 % Mean Corpuscular Volume 90.8 fL Mean Corpuscular Hemoglobin 31.3 pg Mean Corpuscular Hemoglobin Concent 34.4 g/dl Platelet Count 205 K/uL Mean Platelet Volume 9.7 fL Neutrophils (%) (Auto) 66.2 % Lymphocytes (%) (Auto) 20.3 % Monocytes (%) (Auto) 5.7 % Eosinophils (%) (Auto) 6.9 % Basophils (%) (Auto) 0.3 % Neutrophils # (Auto) 2.32 K/uL Lymphocytes # (Auto) 0.71 K/uL Monocytes # (Auto) 0.20 K/uL Eosinophils # (Auto) 0.24 K/uL Basophils # (Auto) 0.01 K/uL RDW Standard Deviation 47.9 fL RDW Coefficient of Variation 14.2 % Immature Granulocyte % (Auto) 0.6 % Immature Granulocyte # (Auto) 0.02 K/uL Toxic Granulation 1+ Sodium Level 137 mmol/L Potassium Level 3.3 mmol/L Chloride Level 106 mmol/L Carbon Dioxide Level 19 mmol/L Anion Gap 12.0 mmol/L Blood Urea Nitrogen 8 mg/dl Creatinine 0.74 mg/dl Est Creatinine Clear Calc Drug Dose 104.7 ml/min Estimated GFR () 112.2 Estimated GFR (Non- 96.8 BUN/Creatinine Ratio 10.5 Random Glucose 92 mg/dl Calcium Level 6.8 mg/dl Phosphorus Level 2.4 mg/dl Magnesium Level 1.1 mg/dl Assessment and Plan Patient is a 66 year old male with hx of colon ca s/p sigmoid resection w symptoms of melena, heme positive stools. Found to be Cdiff positive, septic ( Staph aureus on elbow wound and blood cx), APPLE (resolved). EGD/Colonoscopy yesterday w inflammatory changes ? severe esophagitis vs Blanton's in esophagus ; colitis likely from Cdiff. EGD bx: Negative for Hpylori, chronic active esophagitis w/o intestinal metaplasia, + esophageal ulcer, no tumor or fungal hyphae/spores. Colonoscopy bx: Chronic active colitis, most consistent w ischemic colitis. He's still having loose stools but frequency less, tolerating regular diet. Hgb stable around 8-9. - Continue Protonix 40mg BID - Consider repeat Colonoscopy in 6 months time given inadequate prep during exam. - Monitor H/H and transfuse prn - Received 7 days of Vancomycin for Cdiff; now on Flagyl 500mg PO q8h for Cdiff coverage and Clostridium Perfringens on R elbow wound. On Dicloxacillin for Staph aureus in R elbow wound and blood I saw and evaluated the patient. We did review the patient's pathology which shows evidence of inflammatory changes in the colon and ischemic colitis likely related to his recent diagnosis of C. difficile infection. The esophageal biopsies did show marketed esophagitis. Recommendations Protonix 40 mg per day, repeat upper endoscopy in 6 months Continue Flagyl as recommended above Repeat colonoscopy in 6 months. (Suboptimal bowel preparation)( GI will sign off please call with any questions or concerns
--- NOTE | 2016-09-26 15:15 | Family Medicine Progress Note ---
Progress Note Date of Service Sep 26, 2016. Subjective Pt evaluation today including: conversation w/ patient, physical exam, chart review, lab review Pain: denies pain. doing better. denies abdominal pain, continues to have semi liquid stools but is getting better. denies fevers/chills Constitutional: No chills, No fever Eyes: No worsening of vision ENT: No hearing loss Respiratory: No cough, No sputum Cardiovascular: No chest pain Abdomen: + nausea, No pain, No vomiting Musculoskeletal: No joint pain Male : No dysuria Neurologic: No memory loss Heme: No abnormal bleeding/bruising Medications Current Inpatient Medications Medications (Trade) Dose Ordered Sig/Miranda Route Start Time Stop Time Status Last Admin Dose Admin Acetaminophen (Tylenol Tab) 650 mg Q4H PRN PO 09/17/16 14:45 10/17/16 14:44 09/21/16 16:49 650 MG Ondansetron HCl (Zofran Inj) 4 mg Q6H PRN IV 09/17/16 14:45 10/17/16 14:44 09/25/16 09:38 4 MG Pantoprazole Sodium (Protonix Tab) 40 mg BID PO 09/22/16 08:00 10/22/16 07:59 09/26/16 07:46 40 MG Magnesium Oxide (Mag-Ox Tab) 400 mg BID PO 09/22/16 08:00 10/22/16 07:59 09/26/16 07:46 400 MG Potassium Chloride (Klor-Con Tab) 20 meq BID PO 09/22/16 08:00 10/22/16 07:59 09/26/16 07:46 20 MEQ Dicloxacillin Sodium (Dynapen Cap) 250 mg QID PO 09/24/16 12:00 10/08/16 11:59 09/26/16 11:53 250 MG Metronidazole (Flagyl Tab) 500 mg Q8 PO 09/24/16 14:00 10/08/16 13:59 09/26/16 13:20 500 MG Objective Vital Signs Date Time Temp Pulse Resp B/P Pulse Ox O2 Delivery O2 Flow Rate FiO2 09/26/16 09:54 Room Air 09/26/16 07:16 36.5 83 16 92/62 96 Room Air 09/26/16 01:08 Room Air 09/25/16 23:57 37.2 81 20 94/63 99 Room Air 09/25/16 16:10 99 Room Air 09/25/16 16:05 36.8 82 16 90/51 98 Room Air 09/25/16 15:50 118 97 Physical Exam General Appearance: WD/WN, no apparent distress Eyes: normal inspection ENT: normal ENT inspection, hearing grossly normal Neck: supple Respiratory/Chest: chest non-tender, lungs clear, normal breath sounds, no accessory muscle use Cardiovascular: regular rate, rhythm Abdomen: normal bowel sounds, non tender, soft Extremities: normal range of motion, no pedal edema, + pertinent finding ( right elbow wound covered on dressing) Neurologic/Psychiatric: alert, normal mood/affect, oriented x 3 Laboratory Results 09/26/16 06:25 Red Blood Count 2.72, Mean Corpuscular Volume 90.8, Mean Corpuscular Hemoglobin 31.3, Mean Corpuscular Hemoglobin Concent 34.4, Mean Platelet Volume 9.7, Neutrophils (%) (Auto) 66.2, Lymphocytes (%) (Auto) 20.3, Monocytes (%) (Auto) 5.7, Eosinophils (%) (Auto) 6.9, Basophils (%) (Auto) 0.3, Neutrophils # (Auto) 2.32, Lymphocytes # (Auto) 0.71, Monocytes # (Auto) 0.20, Eosinophils # (Auto) 0.24, Basophils # (Auto) 0.01 09/26/16 06:25 Test 09/26/16 06:25 White Blood Count 3.50 K/uL (4.8-10.8) Red Blood Count 2.72 M/uL (4.7-6.1) Hemoglobin 8.5 g/dL (14.0-18.0) Hematocrit 24.7 % (42-52) Mean Corpuscular Volume 90.8 fL (80-100) Mean Corpuscular Hemoglobin 31.3 pg (25-34) Mean Corpuscular Hemoglobin Concent 34.4 g/dl (32-36) Platelet Count 205 K/uL (130-400) Mean Platelet Volume 9.7 fL (7.4-10.4) Neutrophils (%) (Auto) 66.2 % Lymphocytes (%) (Auto) 20.3 % Monocytes (%) (Auto) 5.7 % Eosinophils (%) (Auto) 6.9 % Basophils (%) (Auto) 0.3 % Neutrophils # (Auto) 2.32 K/uL (1.4-6.5) Lymphocytes # (Auto) 0.71 K/uL (1.2-3.4) Monocytes # (Auto) 0.20 K/uL (0.11-0.59) Eosinophils # (Auto) 0.24 K/uL (0-0.5) Basophils # (Auto) 0.01 K/uL (0-0.2) RDW Standard Deviation 47.9 fL (36.4-46.3) RDW Coefficient of Variation 14.2 % (11.5-14.5) Immature Granulocyte % (Auto) 0.6 % Immature Granulocyte # (Auto) 0.02 K/uL (0.00-0.02) Toxic Granulation 1+ Anion Gap 12.0 mmol/L (3-11) Est Creatinine Clear Calc Drug Dose 104.7 ml/min Estimated GFR () 112.2 Estimated GFR (Non- 96.8 BUN/Creatinine Ratio 10.5 (10-20) Calcium Level 6.8 mg/dl (8.5-10.1) Phosphorus Level 2.4 mg/dl (2.5-4.9) Magnesium Level 1.1 mg/dl (1.8-2.4) Assessment and Plan Acute C.diff colitis: - vancomycin PO was switched to Flagyl q8h to also cover for elbow infection MSSA Bacteremia with positive wound culture from elbow - BCX2 positive for MSSA - switched from clindamycin to dicloxacillin 250 mg QID and Flagyl 500 mg q8h GI bleed: - Hgb at 8.5, on admission was 12.1 - Monitor H&H - PO Protonix 40 mg BID - EGD and Colonoscopy done 09/24 Per EGD report :Reflux esophagitis. Biopsied. - Esophageal stenosis. Biopsied. - Medium-sized hiatus hernia. - Gastritis. Biopsied. - Normal examined duodenum. Recommendation: - Use Protonix (pantoprazole) 40 mg PO BID for 6 weeks. - If found to have Barretts or Adenocarcinoma patient will likely need further evaluation. Colonoscopy: - Patchy moderate inflammation was found in the entire examined colon consistent with infectious colitis (recent diagnosis of C diff infection). Biopsied. - The examination was otherwise normal. Recommendation: - Await pathology results. - Repeat colonoscopy in 6 months because the bowel preparation was suboptimal. APPLE -- now resolved - Cr at admission 7.4, today at 0.7 Electrolytes: - Hypokalemia: K at 3.3, phos at 2.3 Klor-con 20 meq BID Hypomagnesemia: Mg at 1.1, also received 1g MgSo4 X2 400 mg BID C4 endplate fx -appears stable Left Rib fx-- - stable DVT prophylaxis: SCDS Deconditioning: PT/OT Full code Dispo: referral made to HS Resident Physician Supervision Note: I was present with Dr. Nino during the history and exam. I discussed the case with the resident and agree with the findings and plan as documented in the note. Any exceptions or clarifications are listed here: Overall, his mentation is improved. He has no complaints except for generalized weakness. Continue oral and IV supplementation of magnesium, oral supplementation of potassium. He will need rehabilitation placement given his weakness and determination of his final disposition. Documented By: Armando Marsh
[2016-09-26 15:59] VITALS: BP 104/68; PULSE 73; TEMP 36.4; O2SAT 96
[2016-09-26 16:15] VITALS: O2SAT 99
[2016-09-26 23:54] VITALS: BP 93/58; PULSE 74; TEMP 37.1; O2SAT 96
[2016-09-27] MEDS: METRONIDAZOLE 500 MG TAB PO SCH ×3 (06:06→22:48)
[2016-09-27 07:15] LABS: MEAN CELL VOLUME 90.9 fL (80-100); MEAN CORPUSCULAR HEMOGLOBIN 30.5 pg (25-34); MEAN CORPUSCULAR HGB CONC 33.6 g/dl (32-36); MEAN PLATELET VOLUME 9.7 fL (7.4-10.4); PLATELET COUNT 203 K/uL (130-400); RED BLOOD COUNT 2.75 M/uL (4.7-6.1); WHITE BLOOD COUNT 3.25 K/uL (4.8-10.8)
[2016-09-27 07:41] LABS: BUN/CREATININE RATIO 11.1 (10-20); CALCIUM 7.4 mg/dl (8.5-10.1); CREATININE 0.71 mg/dl (0.60-1.40); MAGNESIUM 1.3 mg/dl (1.8-2.4); POTASSIUM 3.7 mmol/L (3.5-5.1)
[2016-09-27 08:06] LABS: BASO % 0.9 %; BASO ABS # 0.03 K/uL (0-0.2); COMPLETE YES; EOS % 7.7 %; IG% 0.3 %; LYMPH % 25.5 %; LYMPH ABS # 0.83 K/uL (1.2-3.4); MONO % 6.5 %; NEUT % 59.1 %
[2016-09-27 08:15] VITALS: BP 92/56; PULSE 70; TEMP 36.7; O2SAT 98
[2016-09-27] MEDS: PANTOprazole SOD 40 MG TAB PO SCH ×2 (08:37→22:48)
[2016-09-27] MEDS: MAGNESIUM OXIDE 400 MG TAB PO SCH ×2 (08:37→22:47)
[2016-09-27] MEDS: POTASSIUM CHLORIDE 20 MEQ TABCR PO SCH ×2 (08:37→22:47)
[2016-09-27] MEDS: DICLOXACILLIN SODIUM 250 MG CAP PO SCH ×4 (08:37→22:47)
[2016-09-27] MEDS ORDERED: MAGNESIUM SULFATE 1GM / D5W 1 GM in PREMIXED IN D5W 100 ML IV ONE ×2 (10:30→17:15)
[2016-09-27 15:55] VITALS: BP 103/69; PULSE 73; TEMP 36.5; O2SAT 93
--- NOTE | 2016-09-27 16:33 | Family Medicine Progress Note ---
Progress Note Date of Service Sep 27, 2016. Subjective Pt evaluation today including: conversation w/ patient, physical exam, chart review, lab review Pain: denies pain PO Intake: good Voiding: no voiding problems denies any abdominal pain. has some nausea once in a while but has not had any vomiting. thinks his stool was more liquid today Constitutional: No chills, No fever Eyes: No worsening of vision ENT: No hearing loss Respiratory: No cough Cardiovascular: No chest pain Abdomen: + nausea, + problem reported (loose stool), + vomiting, No pain Musculoskeletal: No joint pain Male : No dysuria Neurologic: No memory loss Psychiatric: No depression symptoms Medications Current Inpatient Medications Medications (Trade) Dose Ordered Sig/Miranda Route Start Time Stop Time Status Last Admin Dose Admin Acetaminophen (Tylenol Tab) 650 mg Q4H PRN PO 09/17/16 14:45 10/17/16 14:44 09/21/16 16:49 650 MG Ondansetron HCl (Zofran Inj) 4 mg Q6H PRN IV 09/17/16 14:45 10/17/16 14:44 09/25/16 09:38 4 MG Pantoprazole Sodium (Protonix Tab) 40 mg BID PO 09/22/16 08:00 10/22/16 07:59 09/27/16 08:37 40 MG Magnesium Oxide (Mag-Ox Tab) 400 mg BID PO 09/22/16 08:00 10/22/16 07:59 09/27/16 08:37 400 MG Potassium Chloride (Klor-Con Tab) 20 meq BID PO 09/22/16 08:00 10/22/16 07:59 09/27/16 08:37 20 MEQ Dicloxacillin Sodium (Dynapen Cap) 250 mg QID PO 09/24/16 12:00 10/08/16 11:59 09/27/16 12:08 250 MG Metronidazole (Flagyl Tab) 500 mg Q8 PO 09/24/16 14:00 10/08/16 13:59 09/27/16 13:40 500 MG Objective Vital Signs Date Time Temp Pulse Resp B/P Pulse Ox O2 Delivery O2 Flow Rate FiO2 09/27/16 15:55 36.5 73 18 103/69 93 Room Air 09/27/16 08:15 36.7 70 18 92/56 98 Room Air 09/27/16 00:34 Room Air 09/26/16 23:54 37.1 74 18 93/58 96 Room Air Physical Exam General Appearance: WD/WN, no apparent distress Eyes: normal inspection ENT: normal ENT inspection, hearing grossly normal Neck: supple Respiratory/Chest: chest non-tender, lungs clear, normal breath sounds Cardiovascular: regular rate, rhythm Abdomen: normal bowel sounds, non tender, soft Extremities: normal range of motion, + pertinent finding (elbow wound in dressing) Neurologic/Psychiatric: alert, normal mood/affect, oriented x 3 Laboratory Results Current Inpatient Medications Medications (Trade) Dose Ordered Sig/Miranda Route Start Time Stop Time Status Last Admin Dose Admin Acetaminophen (Tylenol Tab) 650 mg Q4H PRN PO 09/17/16 14:45 10/17/16 14:44 09/21/16 16:49 650 MG Ondansetron HCl (Zofran Inj) 4 mg Q6H PRN IV 09/17/16 14:45 10/17/16 14:44 09/25/16 09:38 4 MG Pantoprazole Sodium (Protonix Tab) 40 mg BID PO 09/22/16 08:00 10/22/16 07:59 09/27/16 08:37 40 MG Magnesium Oxide (Mag-Ox Tab) 400 mg BID PO 09/22/16 08:00 10/22/16 07:59 09/27/16 08:37 400 MG Potassium Chloride (Klor-Con Tab) 20 meq BID PO 09/22/16 08:00 10/22/16 07:59 09/27/16 08:37 20 MEQ Dicloxacillin Sodium (Dynapen Cap) 250 mg QID PO 09/24/16 12:00 10/08/16 11:59 09/27/16 12:08 250 MG Metronidazole (Flagyl Tab) 500 mg Q8 PO 09/24/16 14:00 10/08/16 13:59 09/27/16 13:40 500 MG Assessment and Plan Acute C.diff colitis: - vancomycin PO was switched to Flagyl q8h to also cover for elbow infection MSSA Bacteremia with positive wound culture from elbow - BCX2 positive for MSSA - switched from clindamycin to dicloxacillin 250 mg QID and Flagyl 500 mg q8h GI bleed: - Hgb at 8.5, on admission was 12.1 - Monitor H&H - PO Protonix 40 mg BID - EGD and Colonoscopy done 09/24 Per EGD report :Reflux esophagitis. Biopsied. - Esophageal stenosis. Biopsied. - Medium-sized hiatus hernia. - Gastritis. Biopsied. - Normal examined duodenum. Recommendation: - Use Protonix (pantoprazole) 40 mg PO BID for 6 weeks. - If found to have Barretts or Adenocarcinoma patient will likely need further evaluation. Colonoscopy: - Patchy moderate inflammation was found in the entire examined colon consistent with infectious colitis (recent diagnosis of C diff infection). Biopsied. - The examination was otherwise normal. Recommendation: - Await pathology results. - Repeat colonoscopy in 6 months because the bowel preparation was suboptimal. APPLE -- now resolved - Cr at admission 7.4, today at 0.7 Electrolytes: - Hypokalemia: K at 3.7 Klor-con 20 meq BID Hypomagnesemia: Mg at 1.3, also received 1g MgSo4 400 mg BID C4 endplate fx -appears stable Left Rib fx-8- - stable DVT prophylaxis: SCDS Deconditioning: PT/OT Full code Dispo: referral made to Resident Physician Supervision Note: I was present with Dr. Nino during the history and exam. I discussed the case with the resident and agree with the findings and plan as documented in the note. 66-year-old male recovering from C. difficile colitis and subsequent electrolyte abnormalities. Remains overall improved in terms of mentation but what is not clear is what his baseline is. He did have some nausea and a bout of diarrhea this morning, although by the time we saw him late morning he felt well. He is certainly week and will benefit from inpatient rehabilitation. It is unclear what his ultimate disposition will be and this would depend on his recovery and rehabilitation. Documented By: Armando Marsh Discharge planning: rehab hospital
[2016-09-27 23:30] VITALS: BP 103/68; PULSE 85; TEMP 36.9; O2SAT 99
[2016-09-28] VITALS: O2SAT 93
[2016-09-28 05:52] LABS: HEMATOCRIT 25.1 % (42-52); MEAN CELL VOLUME 89.3 fL (80-100); MEAN CORPUSCULAR HEMOGLOBIN 30.6 pg (25-34); MEAN CORPUSCULAR HGB CONC 34.3 g/dl (32-36); MEAN PLATELET VOLUME 9.3 fL (7.4-10.4); PLATELET COUNT 207 K/uL (130-400); RED BLOOD COUNT 2.81 M/uL (4.7-6.1); WHITE BLOOD COUNT 3.45 K/uL (4.8-10.8)
[2016-09-28 06:20] LABS: BUN/CREATININE RATIO 11.8 (10-20); CALCIUM 7.5 mg/dl (8.5-10.1); CREATININE 0.66 mg/dl (0.60-1.40); MAGNESIUM 1.3 mg/dl (1.8-2.4); POTASSIUM 3.6 mmol/L (3.5-5.1)
[2016-09-28 06:21] LABS: PHOSPHORUS 2.4 mg/dl (2.5-4.9)
[2016-09-28 06:25] LABS: BASO % 1.2 %; BASO ABS # 0.04 K/uL (0-0.2); COMPLETE YES; IG% 0.3 %; LYMPH % 21.4 %; LYMPH ABS # 0.74 K/uL (1.2-3.4); MONO % 8.4 %; NEUT % 59.7 %
[2016-09-28] MEDS: METRONIDAZOLE 500 MG TAB PO SCH ×3 (06:42→21:30)
[2016-09-28 07:30] VITALS: BP 102/68; PULSE 82; TEMP 36.8; O2SAT 98
[2016-09-28] MEDS: PANTOprazole SOD 40 MG TAB PO SCH ×2 (08:24→21:31)
[2016-09-28] MEDS: POTASSIUM CHLORIDE 20 MEQ TABCR PO SCH ×2 (08:24→21:35)
[2016-09-28] MEDS: MAGNESIUM OXIDE 400 MG TAB PO SCH ×2 (08:24→21:31)
[2016-09-28] MEDS: DICLOXACILLIN SODIUM 250 MG CAP PO SCH ×4 (08:24→21:30)
[2016-09-28] MEDS ORDERED: POTASSIUM PHOS 3 MMOL/1 ML INFUSION IV STA (08:25)
[2016-09-28] MEDS: MAGNESIUM SULFATE 1GM / D5W 1 GM in PREMIXED IN D5W 100 ML IV SCH ×2 (10:15→12:37)
[2016-09-28] MEDS ORDERED: POTASSIUM PHOSPHATE INJ 15 MMOL in SODIUM CHLORIDE 0.9% 250ML 250 ML IV ONE (11:00)
[2016-09-28 16:00] VITALS: BP 92/65; PULSE 83; TEMP 36.5; O2SAT 99
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
[2016-09-29 00:34] VITALS: BP 108/74; PULSE 84; TEMP 36.9; O2SAT 97
[2016-09-29] MEDS: METRONIDAZOLE 500 MG TAB PO SCH ×3 (05:07→20:53)
[2016-09-29 07:30] VITALS: BP 103/69; PULSE 85; TEMP 37; O2SAT 98
[2016-09-29 07:31] LABS: MEAN CORPUSCULAR HEMOGLOBIN 30.5 pg (25-34); MEAN CORPUSCULAR HGB CONC 34.2 g/dl (32-36); MEAN PLATELET VOLUME 9.4 fL (7.4-10.4); PLATELET COUNT 224 K/uL (130-400); RED BLOOD COUNT 2.92 M/uL (4.7-6.1); WHITE BLOOD COUNT 3.72 K/uL (4.8-10.8)
[2016-09-29 07:34] LABS: BASO % 1.1 %; BASO ABS # 0.04 K/uL (0-0.2); COMPLETE YES; EOS % 8.6 %; LYMPH % 20.2 %; LYMPH ABS # 0.75 K/uL (1.2-3.4); MONO % 9.4 %; NEUT % 60.7 %
[2016-09-29 08:10] LABS: BLOOD UREA NITROGEN 7 mg/dl (7-18); BUN/CREATININE RATIO 10.1 (10-20); CARBON DIOXIDE 17 mmol/L (21-32); CHLORIDE 105 mmol/L (98-107); GLUCOSE 89 mg/dl (70-99); PHOSPHORUS 2.8 mg/dl (2.5-4.9); SODIUM 134 mmol/L (136-145)
[2016-09-29] MEDS: MAGNESIUM OXIDE 400 MG TAB PO SCH ×2 (08:55→19:45)
[2016-09-29] MEDS: PANTOprazole SOD 40 MG TAB PO SCH ×2 (08:56→19:46)
[2016-09-29] MEDS: DICLOXACILLIN SODIUM 250 MG CAP PO SCH ×4 (08:57→19:45)
[2016-09-29] MEDS: POTASSIUM CHLORIDE 20 MEQ TABCR PO SCH ×2 (08:58→19:46)
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
[2016-09-29 17:33] VITALS: BP 101/73; PULSE 94; TEMP 36.3; O2SAT 99
[2016-09-29 18:17] LABS: MAGNESIUM 1.2 mg/dl (1.8-2.4)
[2016-09-29 18:44] LABS: POTASSIUM 4.2 mmol/L (3.5-5.1)
[2016-09-29] MEDS: MAGNESIUM SULFATE 1GM / D5W 1 GM in PREMIXED IN D5W 100 ML IV SCH ×2 (19:34→20:53)
[2016-09-30 00:26] VITALS: BP 111/76; PULSE 78; TEMP 37.2; O2SAT 96
[2016-09-30] MEDS: METRONIDAZOLE 500 MG TAB PO SCH ×3 (04:38→21:17)
[2016-09-30 06:42] LABS: HEMATOCRIT 26.2 % (42-52); MEAN CELL VOLUME 89.7 fL (80-100); MEAN CORPUSCULAR HEMOGLOBIN 30.5 pg (25-34); MEAN PLATELET VOLUME 9.5 fL (7.4-10.4); PLATELET COUNT 223 K/uL (130-400); RED BLOOD COUNT 2.92 M/uL (4.7-6.1); WHITE BLOOD COUNT 3.16 K/uL (4.8-10.8)
[2016-09-30 07:17] LABS: BUN/CREATININE RATIO 8.4 (10-20); CREATININE 0.8 mg/dl (0.60-1.40); MAGNESIUM 1.5 mg/dl (1.8-2.4)
[2016-09-30 07:31] VITALS: BP 114/73; PULSE 83; TEMP 36.8; O2SAT 98
[2016-09-30 07:38] LABS: BASO % 0.9 %; BASO ABS # 0.03 K/uL (0-0.2); COMPLETE YES; EOS % 10.4 %; LARGE PLATELETS 1+; LYMPH % 20.6 %; LYMPH ABS # 0.65 K/uL (1.2-3.4); MONO % 10.8 %; NEUT % 57.3 %
[2016-09-30] MEDS: DICLOXACILLIN SODIUM 250 MG CAP PO SCH ×4 (09:02→21:15)
[2016-09-30] MEDS: MAGNESIUM OXIDE 400 MG TAB PO SCH ×2 (09:03→21:16)
[2016-09-30] MEDS: PANTOprazole SOD 40 MG TAB PO SCH ×2 (09:03→21:17)
[2016-09-30] MEDS: POTASSIUM CHLORIDE 20 MEQ TABCR PO SCH ×2 (09:03→20:00)
--- NOTE | 2016-09-30 11:32 | Discharge Instructions ---
Discharge Instructions Date of Service Sep 30, 2016. Admission Reason for Admission: Sepsis Discharge Discharge Diagnosis / Problem: C diff colitis, Staph Aureus bacteremia, JOSEFINA Discharge Goals Goal(s): Improve disease control, Improve nutritional status, Diagnostic testing, Therapeutic intervention Activity Recommendations Activity Level: Assistance Required Therapies: Physical Therapy, Occupational Therapy, Speech Therapy Exercise/Sports Limitations: as tolerated Shower/Bathe: no limitations . Additional Information Patient informed of condition: Yes Advance Directives: No DNR: No Level of Care: Acute Rehab Communicable Disease: No Prognosis: Stable Instructions / Follow-Up Instructions / Follow-Up This is a 66 yo m that was admitted to the hospital with severe JOSEFINA, Sepsis and found to have both Staph aureus bacteremia and C Diff colitis. During evaluation in the hospital he was also found to have esophagitis and esophageal ulcers (H Pylori negative) and ischemic colitis. 1. JOSEFINA on CKD - Patient has had significant Josefina from dehydration and was admitted with a Cr of >7. He has been rehydrated and patient is being discharged with a stable Cr. 2. C Diff Colitis- ischemic colitis - Patient was treated with Flagyl and Vanco. Vanco course is complete. Recommend continuing the Flagyl for 10 more days. - Additionally continue Florastor 500mg bid as he will be on dicloxacillin and Protonix for his ulcerations, concern for C Diff recurrence 3. Staph aureus bacteremia - Continue Dicloxacillin for 7 more days 4. Hypomagnesemia and Hypokalemia - recommend recheck at the end of this week - most likely secondary to recovery from ATN, improving but repleted prn 5. Esophageal ulcer - requires an outpt follow up with GI- [facility] - plan was to continue the protonix bid for 1 month and then downgrade - plan is for a follow up scope in 6 months 6. Anemia - Concern that it was secondary to a GI bleed - he arrived with an hgb of 12 and decreased to 8 but this was with rehydration - this may have been from contraction and 8-9 may be his BL - a peripheral smear was pending on d/c as he was pancytopenic Current Hospital Diet Patient's current hospital diet: Regular Diet Discharge Diet Recommended Diet: Regular Diet Procedures Procedures Performed: EGD with biopsy Colonoscopy with biopsy Pending Studies Studies pending at discharge: yes (peripheral smear) List of pending studies: peripheral smear Laboratory Results Results Past 24 Hours Test 09/29/16 17:40 09/30/16 06:26 Range/Units Potassium Level 4.2 4.0 3.5-5.1 mmol/L Magnesium Level 1.2 1.5 1.8-2.4 mg/dl White Blood Count 3.16 4.8-10.8 K/uL Red Blood Count 2.92 4.7-6.1 M/uL Hemoglobin 8.9 14.0-18.0 g/dL Hematocrit 26.2 42-52 % Mean Corpuscular Volume 89.7 80-100 fL Mean Corpuscular Hemoglobin 30.5 25-34 pg Mean Corpuscular Hemoglobin Concent 34.0 32-36 g/dl Platelet Count 223 130-400 K/uL Mean Platelet Volume 9.5 7.4-10.4 fL Neutrophils (%) (Auto) 57.3 % Lymphocytes (%) (Auto) 20.6 % Monocytes (%) (Auto) 10.8 % Eosinophils (%) (Auto) 10.4 % Basophils (%) (Auto) 0.9 % Neutrophils # (Auto) 1.81 1.4-6.5 K/uL Lymphocytes # (Auto) 0.65 1.2-3.4 K/uL Monocytes # (Auto) 0.34 0.11-0.59 K/uL Eosinophils # (Auto) 0.33 0-0.5 K/uL Basophils # (Auto) 0.03 0-0.2 K/uL RDW Standard Deviation 47.7 36.4-46.3 fL RDW Coefficient of Variation 14.4 11.5-14.5 % Immature Granulocyte % (Auto) 0.0 % Immature Granulocyte # (Auto) 0.00 0.00-0.02 K/uL Large Platelets 1+ Sodium Level 135 136-145 mmol/L Chloride Level 103 98-107 mmol/L Carbon Dioxide Level 18 21-32 mmol/L Anion Gap 14.0 3-11 mmol/L Blood Urea Nitrogen 7 7-18 mg/dl Creatinine 0.80 0.60-1.40 mg/dl Est Creatinine Clear Calc Drug Dose 96.9 ml/min Estimated GFR () 108.7 Estimated GFR (Non- 93.7 BUN/Creatinine Ratio 8.4 10-20 Random Glucose 98 70-99 mg/dl Calcium Level 8.0 8.5-10.1 mg/dl Medical Emergencies . Who to Call and When: Medical Emergencies: If at any time you feel your situation is an emergency, please call 911 immediately. . Non-Emergent Contact Non-Emergency issues call your: Primary Care Provider . . "Provider Documentation" section prepared by Melina Abebe. Core Measure Problem Core Measures: None
[2016-09-30] MEDS ORDERED: PRT40 PO (11:34)
[2016-09-30] MEDS ORDERED: MGNO400 PO (11:34)
[2016-09-30] MEDS ORDERED: DCL250 PO (11:34)
[2016-09-30] MEDS ORDERED: MTR500 PO (11:34)
[2016-09-30] MEDS ORDERED: SACC250C3 PO (11:34)
--- NOTE | 2016-09-30 11:38 | Discharge Summary ---
Discharge Summary Date of Service Sep 30, 2016. (Melina Abebe MD) Discharge Summary Admission Date: Sep 17, 2016 at 14:46 Discharge Date: Sep 30, 2016 Discharge Disposition: Acute care facility Principal Diagnosis: Sepsis Immunizations: Have You Had Influenza Vaccine: No History of Tetanus Vaccine?: No Tetanus Immunization Date: Nov 06, 2010 History of Pneumococcal: No History of Hepatitis B Vaccine: No (Melina Abebe MD) Medication Reconciliation New Medications: Dicloxacillin Sodium (Dicloxacillin Sodium) 250 Mg Cap 250 MG PO QID for 7 Days, #30 CAP Magnesium Oxide (Magnesium-Oxide) 400 Mg Tab 400 MG PO BID for 30 Days, #60 TAB Metronidazole (Metronidazole) 500 Mg Tab 500 MG PO Q8 for 10 Days, #30 TAB Pantoprazole (Pantoprazole Sodium) 40 Mg Tab 40 MG PO BID for 30 Days, #60 TAB Saccharomyces Boulardii (Florastor) 250 Mg Cap 500 MG PO BID for 30 Days, #60 CAP Discharge Exam Patient states that he feels well today just a little weak denies any pain discussed concerns and questions about discharge to [facility] and patient was agreeable to the plan Review of Systems: Constitutional: No fever Eyes: No worsening of vision ENT: No hearing loss Respiratory: No cough, No dyspnea at rest, No dyspnea on exertion, No shortness of breath, No sputum, No wheezing Cardiovascular: No chest pain Abdomen: + problem reported (Poor appetite), No constipation, No diarrhea, No nausea, No pain, No vomiting Musculoskeletal: No joint pain, No muscle pain Genitourinary - Male: No dysuria, No hematuria Neurologic: + weakness, No balance problems, No numbness/tingling Psychiatric: No depression symptoms Endocrine: + fatigue Integumentary: No rash (Melina Abebe MD) Review of Systems: Constitutional: No fever Respiratory: No shortness of breath Cardiovascular: No chest pain Abdomen: No diarrhea, No pain Physical Exam: General Appearance: no apparent distress Respiratory/Chest: lungs clear, no respiratory distress Cardiovascular: regular rate, rhythm Abdomen / GI: normal bowel sounds, non tender, soft Neurologic/Psychiatric: alert, oriented x 3 Skin: warm/dry (Shauna Carranza M.D.) Hospital Course This is a 66 yo m that originally presented to us completely unresponsive and covered in black stool. He was hypothermic with a temp of 35.8C. He was very weak and suffered from copious watery diarrhea in the days coming up to the admission. He did not remember anything leading up to the admission. He was found to be septic and in severe APPLE with a cr of 7.4.Patient was admitted to the ICU for further care. His Cr improved with IVF and fluid resuscitation. His hgb of 12 on admission did drop to 8. there was concern that this was secondary to a LGI bleed however on further review of the CBC it was most likely contraction from severe dehydration along with a GI bleed. He did have an EGD done that reveled esophagitis and esophageal ulcer ( H Pylori negative). He was also found to have ischemic colitis secondary to a C Diff infection. Blood cultures were reflective of a staph aureus bacteremia and the source was most likely the infected wound of his right elbow. please see below for individual care 1. APPLE secondary to sepsis vs dehydration - Patient has had significant Apple from dehydration and was admitted with a Cr of >7. He has been rehydrated and patient is being discharged with a stable Cr. - recommend repeat Cr in 1 week 2. C Diff Colitis- ischemic colitis - Patient was treated with Flagyl and Vanco. Vanco course is complete. Recommend continuing the Flagyl for 10 more days. Rx given to patient - Additionally continue Florastor 500mg bid as he will be on dicloxacillin and Protonix for his ulcerations, concern for C Diff recurrence 3. Staph aureus bacteremia - Continue Dicloxacillin for 7 more days 4. Hypomagnesemia and Hypokalemia - recommend recheck at the end of this week - most likely secondary to recovery from ATN, improving but repleted prn - Mg oxide and KCL rx given 5. Esophageal ulcer - requires an outpt follow up with GI- [facility] - plan was to continue the protonix bid for 1 month and then downgrade - plan is for a follow up scope in 6 months 6. Anemia - Concern that it was secondary to a GI bleed, most likely contraction - he arrived with an hgb of 12 and decreased to 8 but this was with rehydration - this may have been from contraction and 8-9 may be his BL - a peripheral smear was pending on d/c as he was pancytopenic Total Time Spent: Less than 30 minutes This includes examination of the patient, discharge planning, medication reconciliation, and communication with other providers. (Melina Abebe MD) I have reviewed the medical record and performed a history and physical examination of this patient today. I have discussed the case with Dr. Abebe. The above note reflects my findings, conclusions, and recommendations. Total Time Spent: Greater than 30 minutes (35) (Shauna Carranza M.D.) Discharge Instructions Please refer to the electronic Patient Visit Report (Discharge Instructions) for additional information. (Melina Abebe MD) Additional Copies To Kelsea Duke C.R.N.P.
[2016-09-30 11:53] VITALS: BP_SYST 101; BP_SYST 114; BP_DIAS 67; BP_DIAS 73; PULSE 83; PULSE 87; TEMP 36.7; TEMP 36.8; O2SAT 98; O2SAT 99
[2016-09-30 16:33] VITALS: BP 108/68; PULSE 90; TEMP 36.5; O2SAT 99
[2016-09-30] MEDS: SACCHAROMYCES BOUL (FLORASTOR) 250 MG CAP PO SCH (21:16)
[2016-09-30] MEDS: MAGNESIUM SULFATE 1GM / D5W 1 GM in PREMIXED IN D5W 100 ML IV SCH (23:28)
[2016-09-30 23:58] VITALS: BP 92/60; PULSE 92; TEMP 37.3; O2SAT 99
[2016-10-01] MEDS: MAGNESIUM SULFATE 1GM / D5W 1 GM in PREMIXED IN D5W 100 ML IV SCH
[2016-10-01] MEDS: METRONIDAZOLE 500 MG TAB PO SCH ×2 (05:21→12:51)
[2016-10-01 06:57] LABS: CALCIUM 8.1 mg/dl (8.5-10.1); CREATININE 0.84 mg/dl (0.60-1.40); MAGNESIUM 1.8 mg/dl (1.8-2.4); POTASSIUM 4.3 mmol/L (3.5-5.1)
[2016-10-01 07:09] VITALS: BP 101/67; PULSE 87; TEMP 36.7; O2SAT 99
[2016-10-01] MEDS ORDERED: MAGNTAB4 PO (07:10)
[2016-10-01] MEDS: MAGNESIUM OXIDE 400 MG TAB PO SCH (09:30)
[2016-10-01] MEDS: PANTOprazole SOD 40 MG TAB PO SCH (09:31)
[2016-10-01] MEDS: POTASSIUM CHLORIDE 20 MEQ TABCR PO SCH (09:31)
[2016-10-01] MEDS: DICLOXACILLIN SODIUM 250 MG CAP PO SCH ×2 (09:31→12:51)
[2016-10-01] MEDS: SACCHAROMYCES BOUL (FLORASTOR) 250 MG CAP PO SCH (09:32)
--- NOTE | 2016-10-01 13:46 | Progress Note ---
Progress Note Date of Service Oct 01, 2016. Progress Note Delay in transportation overnight, patient was discharged yesterday and there is no plan to change discharge planning as noted previously Did visit the patient twice today to answer questions and discuss his lost clothing, he was told that if found they would be sent to him in [facility] Concerns about transportation was discussed and he was reassured Discussed plan to go to [facility] for rehab and then home and the length of time it would potentially take at [facility]
--- NOTE | 2016-10-02 13:54 | Discharge Summary ---
Discharge Summary Date of Service Oct 02, 2016. (Melina Abebe MD) Discharge Summary Admission Date: Sep 17, 2016 at 14:46 Discharge Date: Sep 30, 2016 Discharge Disposition: Home Principal Diagnosis: sepsis Immunizations: Have You Had Influenza Vaccine: No History of Tetanus Vaccine?: No Tetanus Immunization Date: Nov 06, 2010 History of Pneumococcal: No History of Hepatitis B Vaccine: No (Melina Abebe MD) Medication Reconciliation New Medications: Magnesium Chloride (Slow-Mag Tab) 64 Mg Tabcr 64 MG PO DAILY for 30 Days, #30 TAB Dicloxacillin Sodium (Dicloxacillin Sodium) 250 Mg Cap 250 MG PO QID for 7 Days, #30 CAP Magnesium Oxide (Magnesium-Oxide) 400 Mg Tab 400 MG PO BID for 30 Days, #60 TAB Metronidazole (Metronidazole) 500 Mg Tab 500 MG PO Q8 for 10 Days, #30 TAB Pantoprazole (Pantoprazole Sodium) 40 Mg Tab 40 MG PO BID for 30 Days, #60 TAB Saccharomyces Boulardii (Florastor) 250 Mg Cap 500 MG PO BID for 30 Days, #60 CAP Discharge Exam Delay in transport for d/c Review of Systems: Constitutional: No fever Eyes: No worsening of vision Respiratory: No cough, No dyspnea at rest, No dyspnea on exertion, No shortness of breath, No sputum, No wheezing Cardiovascular: No chest pain Abdomen: No constipation, No diarrhea, No nausea, No pain, No vomiting Musculoskeletal: No joint pain, No muscle pain Neurologic: + balance problems, + weakness Endocrine: + fatigue Integumentary: No rash Physical Exam: General Appearance: WD/WN, no apparent distress Eyes: normal inspection ENT: normal ENT inspection Neck: supple Respiratory/Chest: lungs clear, normal breath sounds, no respiratory distress, no accessory muscle use Cardiovascular: regular rate, rhythm, no murmur Abdomen / GI: normal bowel sounds, non tender, soft Extremities: no calf tenderness, no pedal edema Neurologic/Psychiatric: alert, normal mood/affect, oriented x 3 Skin: normal color, warm/dry, no rash Lymphatic: no adenopathy (Melina Abebe MD) Review of Systems: Constitutional: No fever Respiratory: No shortness of breath Cardiovascular: No chest pain Abdomen: No GI bleeding, No nausea, No pain, No vomiting Physical Exam: General Appearance: no apparent distress Respiratory/Chest: lungs clear, no respiratory distress Cardiovascular: regular rate, rhythm Abdomen / GI: normal bowel sounds, non tender, soft Neurologic/Psychiatric: alert, oriented x 3 Skin: warm/dry (Shauna Carranza M.D.) Hospital Course This is a 66 yo m that originally presented to us completely unresponsive and covered in black stool. He was hypothermic with a temp of 35.8C. He was very weak and suffered from copious watery diarrhea in the days coming up to the admission. He did not remember anything leading up to the admission. He was found to be septic and in severe JOSEFINA with a cr of 7.4.Patient was admitted to the ICU for further care. His Cr improved with IVF and fluid resuscitation. His hgb of 12 on admission did drop to 8. there was concern that this was secondary to a LGI bleed however on further review of the CBC it was most likely contraction from severe dehydration along with a GI bleed. He did have an EGD done that reveled esophagitis and esophageal ulcer ( H Pylori negative). He was also found to have ischemic colitis secondary to a C Diff infection. Blood cultures were reflective of a staph aureus bacteremia and the source was most likely the infected wound of his right elbow. please see below for individual care 1. JOSEFINA secondary to sepsis vs dehydration - Patient has had significant Josefina from dehydration and was admitted with a Cr of >7. He has been rehydrated and patient is being discharged with a stable Cr. - recommend repeat Cr in 1 week 2. C Diff Colitis- ischemic colitis - Patient was treated with Flagyl and Vanco. Vanco course is complete. Recommend continuing the Flagyl for 10 more days. Rx given to patient - Additionally continue Florastor 500mg bid as he will be on dicloxacillin and Protonix for his ulcerations, concern for C Diff recurrence 3. Staph aureus bacteremia - Continue Dicloxacillin for 7 more days 4. Hypomagnesemia and Hypokalemia - recommend recheck at the end of this week - most likely secondary to recovery from ATN, improving but repleted prn - Mg oxide and KCL rx given 5. Esophageal ulcer - requires an outpt follow up with GI- [facility] - plan was to continue the protonix bid for 1 month and then downgrade - plan is for a follow up scope in 6 months 6. Anemia - Concern that it was secondary to a GI bleed, most likely contraction - he arrived with an hgb of 12 and decreased to 8 but this was with rehydration - this may have been from contraction and 8-9 may be his BL - a peripheral smear was pending on d/c as he was pancytopenic Total Time Spent: Less than 30 minutes This includes examination of the patient, discharge planning, medication reconciliation, and communication with other providers. (Melina Abebe MD) I have reviewed the medical record and performed a history and physical examination of this patient today. I have discussed the case with Dr Abebe. The above note reflects my findings, conclusions, and recommendations. Total Time Spent: Greater than 30 minutes (35) (Shauna Carranza M.D.) Discharge Instructions Please refer to the electronic Patient Visit Report (Discharge Instructions) for additional information. (Melina Abebe MD)
== END 2016-10-01 14:27 | DRG 871 ==
LOC: ENRESERVTM → ENRESERVDT → EDBD 11:55 → C.ED 11:56 → UNDOADMIN 14:46 → C.MSICU 14:46 → C.2E 09-18 19:15 → C.4E 09-19 11:09
PROVIDERS: ADMIT Family Medicine; ATTEND Family Medicine
PROC: 04HK33Z Insertion of Infusion Device into Right Femoral Artery, Percutaneous Approach (ICD-10-PCS; principal; 2016-09-17)
PROC: 0DBE8ZX Excision of Large Intestine, Via Natural or Artificial Opening Endoscopic, Diagnostic (ICD-10-PCS; 2016-09-24 11:23)
PROC: 0DB18ZX Excision of Upper Esophagus, Via Natural or Artificial Opening Endoscopic, Diagnostic (ICD-10-PCS; 2016-09-24 11:23)
PROC: 0DB48ZX Excision of Esophagogastric Junction, Via Natural or Artificial Opening Endoscopic, Diagnostic (ICD-10-PCS; 2016-09-24 11:23)
PROC: 0DB68ZX Excision of Stomach, Via Natural or Artificial Opening Endoscopic, Diagnostic (ICD-10-PCS; 2016-09-24 11:23)
DX: A41.01 Sepsis due to Methicillin susceptible Staphylococcus aureus (principal); G93.41 Metabolic encephalopathy; R57.1 Hypovolemic shock; N17.0 Acute kidney failure with tubular necrosis; A04.7 Enterocolitis due to Clostridium difficile; K92.2 Gastrointestinal hemorrhage, unspecified; K92.1 Melena; S12.301A Unspecified nondisplaced fracture of fourth cervical vertebra, initial encounter for closed fracture; S22.42XA Multiple fractures of ribs, left side, initial encounter for closed fracture; S36.113A Laceration of liver, unspecified degree, initial encounter; L03.113 Cellulitis of right upper limb; K55.9 Vascular disorder of intestine, unspecified; K22.10 Ulcer of esophagus without bleeding; D61.818 Other pancytopenia; E83.42 Hypomagnesemia; E83.39 Other disorders of phosphorus metabolism; K52.9 Noninfective gastroenteritis and colitis, unspecified; M70.21 Olecranon bursitis, right elbow; K76.0 Fatty (change of) liver, not elsewhere classified; K22.2 Esophageal obstruction; K44.9 Diaphragmatic hernia without obstruction or gangrene; K21.0 Gastro-esophageal reflux disease with esophagitis; K29.70 Gastritis, unspecified, without bleeding; F10.96 Alcohol use, unspecified with alcohol-induced persisting amnestic disorder; E87.6 Hypokalemia; R79.89 Other specified abnormal findings of blood chemistry; B95.61 Methicillin susceptible Staphylococcus aureus infection as the cause of diseases classified elsewhere; T68.XXXA Hypothermia, initial encounter; X58.XXXA Exposure to other specified factors, initial encounter; Z85.038 Personal history of other malignant neoplasm of large intestine; Z90.49 Acquired absence of other specified parts of digestive tract

== ENCOUNTER → 2016-11-07 | Outpatient (CLI) | payer OTHER ==
[~2016-11-07] MED LIST changes: +DCL250 PO; +MGNO400 PO; +MTR500 PO; +PRT40 PO; +SACC250C3 PO
[2016-11-07 11:12] LABS: BLOOD UREA NITROGEN 10 mg/dl (7-18); BUN/CREATININE RATIO 11.2 (10-20); CALCIUM 8.8 mg/dl (8.5-10.1); CARBON DIOXIDE 22 mmol/L (21-32); CHLORIDE 107 mmol/L (98-107); CREATININE 0.88 mg/dl (0.60-1.40); GLUCOSE 100 mg/dl (70-99); MAGNESIUM 1.5 mg/dl (1.8-2.4); POTASSIUM 2.9 mmol/L (3.5-5.1); SODIUM 141 mmol/L (136-145)
== END | disposition home or self-care (01) ==
LOC: C.LABSPEC 09:55
PROVIDERS: ATTEND Internal Medicine
DX: E03.9 Hypothyroidism, unspecified (principal); E87.6 Hypokalemia

== ENCOUNTER → 2016-11-27 | Outpatient (CLI) | payer OTHER ==
[2016-11-27 11:24] LABS: BLOOD UREA NITROGEN 14 mg/dl (7-18); BUN/CREATININE RATIO 14.8 (10-20); CALCIUM 9.2 mg/dl (8.5-10.1); CARBON DIOXIDE 23 mmol/L (21-32); CHLORIDE 109 mmol/L (98-107); CREATININE 0.94 mg/dl (0.60-1.40); GLUCOSE 95 mg/dl (70-99); MAGNESIUM 1.3 mg/dl (1.8-2.4); POTASSIUM 3.4 mmol/L (3.5-5.1); SODIUM 142 mmol/L (136-145)
[2016-11-27 11:27] LABS: HEMATOCRIT 32.4 % (42-52); MEAN CELL VOLUME 87.8 fL (80-100); MEAN CORPUSCULAR HEMOGLOBIN 28.2 pg (25-34); MEAN CORPUSCULAR HGB CONC 32.1 g/dl (32-36); MEAN PLATELET VOLUME 10.2 fL (7.4-10.4); PLATELET COUNT 301 K/uL (130-400); RED BLOOD COUNT 3.69 M/uL (4.7-6.1); WHITE BLOOD COUNT 6.24 K/uL (4.8-10.8)
--- NOTE | 2016-11-28 14:55 | CODING QUERY NO DIAGNOSIS ---
TREATMENT RENDERED WITHOUT A DIAGNOSIS 51 To promote full compliance with coding requirements relating to patient care, physician participation is requested in all cases of recording clerk uncertainty. Please assist us with providing a diagnosis/symptom for the test(s) below: A diagnosis/symptom was not documented on your Order. A valid diagnosis/symptom is required to bill all insurances. Please remember that we are unable to code a diagnosis of rule out, probable, possible, questionable, or suspected. DOS 11/27/16 Tests that require a diagnosis: * CDIFF TOXIN B GENE DIAGNOSIS: * CBC W/O DIFF DIAGNOSIS: * MAGNESIUM DIAGNOSIS: * PARTIAL RENAL PROFILE DIAGNOSIS: : Provider Signature: Date: Thank you Angelita Archibald Health Information Management Once completed, please kindly fax back to [phone] For questions please call [phone]
== END | disposition home or self-care (01) ==
LOC: C.LABSPEC 10:50
PROVIDERS: ATTEND Nurse Practitioner Adult Health
DX: A04.7 Enterocolitis due to Clostridium difficile (principal); D64.9 Anemia, unspecified; E83.42 Hypomagnesemia; E87.6 Hypokalemia